=== PATIENT | female | born 1965 | race Caucasian/White ===

== ENCOUNTER → 2021-12-12 07:44 | Outpatient (BNVA) | payer MEDICARE, SELFPAY | PROVIDERS: PCP Internal Medicine; Visit Provider Internal Medicine Rheumatology | DX: M35.05 Sjogren syndrome with inflammatory arthritis (principal); M35.9 Systemic involvement of connective tissue, unspecified; M16.0 Bilateral primary osteoarthritis of hip; M75.82 Other shoulder lesions, left shoulder; M79.7 Fibromyalgia; J84.9 Interstitial pulmonary disease, unspecified; Z79.899 Other long term (current) drug therapy | CPT/HCPCS: 20610; 99212 ==

== ENCOUNTER 2022-04-11 08:49 | Outpatient (REF) | payer MEDICARE, SELFPAY ==
[2022-04-11 10:35] LABS: MANUAL DIFF FLAG NO
[2022-04-11 10:44] LABS: Basophils Percent Auto 0.8 % (0-2); Eosinophils Absolute Auto 0.1 X10*3/uL (0.0-0.4); Eosinophils Percent Auto 2.8 % (0-4); Hematocrit 36.7 % (37.0-47.0); Hemoglobin 12.2 g/dl (12.0-16.0); Imm Gran Abs Auto 0.01 X10*3/uL (0.00-0.03); Imm Gran Pct Auto 0.3 % (0.0-0.4); Lymphocytes Absolute Auto 0.9 X10*3/uL (1.2-4.9); Lymphocytes Percent Auto 23.7 % (20-40); Mean Corpuscular HGB Conc 33.2 g/dl (31.0-35.0); Mean Corpuscular Hemoglobin 29.6 pg (27.0-33.0); Mean Corpuscular Volume 89.1 fL (80.0-98.0); Mean Platelet Volume 9.8 fL (9.4-12.3); Monocytes Absolute Auto 0.3 X10*3/uL (0.1-1.2); Monocytes Percent Auto 8.1 % (2-11); Neutrophils Absolute Auto 2.6 x10*3/uL (2.0-8.3); Neutrophils Percent Auto 64.3 % (45-73); Platelet Count 272 X10*3/uL (160-400); Red Blood Count 4.12 X10*6/uL (4.20-5.50); Red Cell Distribution Width 11.9 % (11.0-16.0)
[2022-04-11 10:50] LABS: C Reactive Protein 0.38 mg/dL (< or = 0.50); Estimated Glomerular Filt Rate > 60
[2022-04-11 11:12] LABS: Creatinine Urine 269.88 mg/dL; Protein/Creatinine Ratio, Ur 0.04 (<0.2); Total Protein Urine Random 10 mg/dL (<12)
[2022-04-11 12:27] LABS: Erythrocyte Sedimentation Rate 46 MM/HR (0-20)
== END 2022-04-11 08:50 | disposition home or self-care (01) ==
LOC: HO.10HDL 08:49
PROVIDERS: Visit Provider Internal Medicine Rheumatology
DX: M79.7 Fibromyalgia (principal); M75.82 Other shoulder lesions, left shoulder; M16.0 Bilateral primary osteoarthritis of hip; J84.9 Interstitial pulmonary disease, unspecified; M35.9 Systemic involvement of connective tissue, unspecified; G43.909 Migraine, unspecified, not intractable, without status migrainosus; M35.05 Sjogren syndrome with inflammatory arthritis; Z79.899 Other long term (current) drug therapy
CPT/HCPCS: 36415; 82565; 84156; 85025; 85652; 86140; 99212

== ENCOUNTER → 2022-09-11 08:26 | Outpatient (BNVA) | payer MEDICARE, SELFPAY | PROVIDERS: PCP Internal Medicine; Visit Provider Internal Medicine Rheumatology | DX: M79.7 Fibromyalgia (principal); M47.816 Spondylosis without myelopathy or radiculopathy, lumbar region; M75.82 Other shoulder lesions, left shoulder; M16.0 Bilateral primary osteoarthritis of hip; M35.05 Sjogren syndrome with inflammatory arthritis; J84.9 Interstitial pulmonary disease, unspecified; Z79.899 Other long term (current) drug therapy | CPT/HCPCS: 99212 ==

== ENCOUNTER 2022-09-11 09:37 | Outpatient (REF) | payer MEDICARE, SELFPAY ==
[2022-09-11 10:49] LABS: Basophils Percent Auto 0.9 % (0-2); Eosinophils Absolute Auto 0.3 X10*3/uL (0.0-0.4); Eosinophils Percent Auto 5.8 % (0-4); Hematocrit 34.8 % (37.0-47.0); Hemoglobin 11.2 g/dl (12.0-16.0); Imm Gran Abs Auto 0.01 X10*3/uL (0.00-0.03); Imm Gran Pct Auto 0.2 % (0.0-0.4); Lymphocytes Absolute Auto 1.6 X10*3/uL (1.2-4.9); Lymphocytes Percent Auto 38.3 % (20-40); MANUAL DIFF FLAG SCAN; Mean Corpuscular HGB Conc 32.2 g/dl (31.0-35.0); Mean Corpuscular Hemoglobin 28.8 pg (27.0-33.0); Mean Corpuscular Volume 89.5 fL (80.0-98.0); Mean Platelet Volume 9.4 fL (9.4-12.3); Monocytes Absolute Auto 0.3 X10*3/uL (0.1-1.2); Monocytes Percent Auto 6.8 % (2-11); Neutrophils Absolute Auto 2.1 x10*3/uL (2.0-8.3); Platelet Count 332 X10*3/uL (160-400); Red Blood Count 3.89 X10*6/uL (4.20-5.50); Red Cell Distribution Width 11.8 % (11.0-16.0); SCAN SMEAR FLAG 1; White Blood Count 4.3 X10*3/uL (4.8-10.8)
[2022-09-11 11:15] LABS: SLIDE REVIEW VERIFIED
[2022-09-11 11:38] LABS: Erythrocyte Sedimentation Rate 48 MM/HR (0-20)
== END 2022-09-11 09:38 | disposition home or self-care (01) ==
LOC: HO.10HDL 09:37
PROVIDERS: Visit Provider Internal Medicine Rheumatology
DX: M16.0 Bilateral primary osteoarthritis of hip (principal); M35.9 Systemic involvement of connective tissue, unspecified; M35.05 Sjogren syndrome with inflammatory arthritis; M47.816 Spondylosis without myelopathy or radiculopathy, lumbar region; M75.82 Other shoulder lesions, left shoulder; J84.9 Interstitial pulmonary disease, unspecified
CPT/HCPCS: 36415; 85025; 85652; 86140

== ENCOUNTER 2023-01-17 10:02 | Outpatient (REF) | payer MEDICARE, SELFPAY ==
[2023-01-17 13:18] LABS: MANUAL DIFF FLAG NO
[2023-01-17 13:27] LABS: Basophils Percent Auto 0.7 % (0-2); Eosinophils Absolute Auto 0.1 X10*3/uL (0.0-0.4); Eosinophils Percent Auto 2.5 % (0-4); Hemoglobin 12.1 g/dl (12.0-16.0); Imm Gran Abs Auto 0.01 X10*3/uL (0.00-0.03); Imm Gran Pct Auto 0.2 % (0.0-0.4); Lymphocytes Percent Auto 22.4 % (20-40); Mean Corpuscular HGB Conc 32.7 g/dl (31.0-35.0); Mean Corpuscular Hemoglobin 29.4 pg (27.0-33.0); Mean Platelet Volume 10.1 fL (9.4-12.3); Monocytes Absolute Auto 0.3 X10*3/uL (0.1-1.2); Monocytes Percent Auto 7.6 % (2-11); Neutrophils Absolute Auto 2.9 x10*3/uL (2.0-8.3); Neutrophils Percent Auto 66.6 % (45-73); Platelet Count 250 X10*3/uL (160-400); Red Blood Count 4.11 X10*6/uL (4.20-5.50); Red Cell Distribution Width 11.9 % (11.0-16.0); White Blood Count 4.3 X10*3/uL (4.8-10.8)
[2023-01-17 13:42] LABS: Alanine Aminotransferase 16 U/L (0-31); Albumin Level 4.2 g/dL (3.5-5.0); Alkaline Phosphatase 69 U/L (39-117); Anion Gap 10 (12-20); Aspartate Amino Transferase 22 U/L (5-31); Bilirubin Total 0.8 mg/dL (0.0-1.0); Blood Urea Nitrogen 6 mg/dL (9-16); C Reactive Protein 0.14 mg/dL (< or = 0.50); Calcium 9.5 mg/dL (8.4-10.2); Carbon Dioxide 28 mmol/L (22-29); Chloride 107 mmol/L (96-108); Estimated Glomerular Filt Rate > 60; Glucose Random 81 mg/dL (60-115); Sodium 141 mmol/L (135-145); Total Protein 7.4 g/dL (6.5-8.0)
[2023-01-17 14:14] LABS: Erythrocyte Sedimentation Rate 34 MM/HR (0-20)
[2023-01-19 22:33] LABS: TS Negative Control Passed; TS Panel A 0; TS Panel B 0; TS Positive Control Passed; TSpotTB Negative (Negative)
[2023-01-20 08:50] LABS: HBS Num1 73.29 mIU/mL (0-7.99); HBsAGNum1 0.28 S/CO (0.00-0.99); Hepatitis A Antibody IgM 0.14 Index (0-0.79); Hepatitis B Core Antibody Nonreactive (Nonreactive); Hepatitis B Surface Antigen Negative (Negative); ~HepC Num1 0.18 S/CO (0.00-0.79); ~Hepatitis A Antibody IgM Nonreactive (Nonreactive); ~Hepatitis B Surface Antibody REACTIVE (Nonreactive); ~Hepatitis C Antibody Nonreactive (Nonreactive)
== END 2023-01-17 10:03 | disposition home or self-care (01) ==
LOC: HO.10HDL 10:02
PROVIDERS: Visit Provider Internal Medicine Rheumatology
DX: M35.05 Sjogren syndrome with inflammatory arthritis (principal); J84.9 Interstitial pulmonary disease, unspecified; M35.9 Systemic involvement of connective tissue, unspecified; Z79.899 Other long term (current) drug therapy
CPT/HCPCS: 36415; 80053; 85025; 85652; 86140; 86481; 86704; 86706; 86709; 86803; 87340

== ENCOUNTER → 2023-01-22 08:42 | Outpatient (BNVA) | payer MEDICARE, SELFPAY | PROVIDERS: PCP Internal Medicine; Visit Provider Internal Medicine Rheumatology | DX: M35.05 Sjogren syndrome with inflammatory arthritis (principal); M79.7 Fibromyalgia; M47.812 Spondylosis without myelopathy or radiculopathy, cervical region; M47.816 Spondylosis without myelopathy or radiculopathy, lumbar region; J84.9 Interstitial pulmonary disease, unspecified; Z79.899 Other long term (current) drug therapy | CPT/HCPCS: 99212 ==

== ENCOUNTER 2023-02-05 12:38 | Outpatient (REF) | payer MEDICARE, SELFPAY ==
[2023-02-07 13:03] LABS: IgA 298 mg/dL (47-310); IgG 1731 mg/dL (600-1640); IgM 89 mg/dL (50-300)
== END 2023-02-05 12:39 | disposition home or self-care (01) ==
LOC: HO.LAB 12:38
PROVIDERS: PCP Internal Medicine; Visit Provider Student in an Organized Health Care Education/Training Program
DX: Z79.899 Other long term (current) drug therapy (principal)
CPT/HCPCS: 36415; 82784

== ENCOUNTER → 2023-03-26 07:52 | Outpatient (BNVA) | payer MEDICARE, SELFPAY | PROVIDERS: PCP Internal Medicine; Visit Provider Internal Medicine Rheumatology | DX: M35.05 Sjogren syndrome with inflammatory arthritis (principal); J84.9 Interstitial pulmonary disease, unspecified; M16.0 Bilateral primary osteoarthritis of hip; M47.812 Spondylosis without myelopathy or radiculopathy, cervical region; M47.816 Spondylosis without myelopathy or radiculopathy, lumbar region; M79.7 Fibromyalgia; Z79.620 Long term (current) use of immunosuppressive biologic | CPT/HCPCS: 99212 ==

== ENCOUNTER 2023-06-26 15:15 | Outpatient (REF) | payer MEDICARE, SELFPAY ==
[2023-06-26 18:55] LABS: Alanine Aminotransferase 14 U/L (0-31); Albumin Level 4.4 g/dL (3.5-5.0); Alkaline Phosphatase 69 U/L (39-117); Anion Gap 14 (12-20); Aspartate Amino Transferase 17 U/L (5-31); Bilirubin Total 0.7 mg/dL (0.0-1.0); Blood Urea Nitrogen 11 mg/dL (9-16); C Reactive Protein 0.19 mg/dL (< or = 0.50); Calcium 10.1 mg/dL (8.4-10.2); Carbon Dioxide 26 mmol/L (22-29); Chloride 105 mmol/L (96-108); Estimated Glomerular Filt Rate > 60; Glucose Random 74 mg/dL (60-115); Potassium 4.1 mmol/L (3.3-5.1); Sodium 141 mmol/L (135-145)
== END 2023-06-26 15:16 | disposition home or self-care (01) ==
LOC: HO.LAB 15:15
PROVIDERS: PCP Internal Medicine; Visit Provider Internal Medicine Rheumatology
DX: M35.05 Sjogren syndrome with inflammatory arthritis (principal); Z79.620 Long term (current) use of immunosuppressive biologic
CPT/HCPCS: 36415; 80053; 82570; 82784; 84156; 85025; 85652; 86140

== ENCOUNTER 2023-07-02 07:53 | Outpatient (AMB) | payer MEDICARE, SELFPAY ==
--- NOTE | 2023-07-02 07:54 | MHC.OFFVIS ---
Intake Vital Signs 07/02/23 08:00 Height 5 ft 2 in Weight 181 lb 3.52 oz BMI 33.1 BP 102/62 Blood Pressure Location Lt brachial Position Sitting Pulse 71 Pulse Source Pulse Oximeter Temp 97.2 F Temp Source Skin Pulse Oximetry (%) 100 Oxygen Delivery Method Room Air Intake Visit Reasons: sjog/ILD, FM/ OA Intake Note: Patient presents today for Sjogren's, ILD, Fibromyalgia, and OA follow up. Reports she will be having hip surgery through [facility]. Medical Manager Required: No Accompanied by: Self / Same As Patient Allergies No Known Allergies Allergy (Verified 07/02/23 08:01) Medication List - Last Reconciled 07/02/23 by Tato Martinez MD acetaminophen (Tylenol) 650 mg PO Q6H PRN albuterol 90 mcg/actuation 108 mcg inhalation .EVERY 6 HOURS PRN celecoxib 200 mg PO BID cyclobenzaprine 10 mg PO BID PRN cyclosporine 0.05% (Restasis) 2 drps ophthalmic (eye) TID fluticasone furoate 50 mcg/actuation inhalation DAILY PRN fluticasone furoate 100 mcg/actuation (Arnuity Ellipta) 1 inh inhalation DAILY gabapentin 100 mg PO TID hydroxychloroquine (Plaquenil) 200 mg PO BID meclizine 12.5 mg PO TID PRN nortriptyline 10 - 30 mg (1 - 3 x 10 mg) PO BEDTIME omeprazole 40 mg PO DAILY triamcinolone acetonide (Nasacort) 1 spray intranasal DAILY triamcinolone acetonide 0.1% 1 appl topical BID PRN HPI HPI Comments History of Present Illness Details The patient returns for evaluation of her Sjogren's disease and ILD. Breathing remains stable with no apparent exertional shortness of breath or cough. She does feel like she has trouble taking a deep breath when she wants to yawn. Her PCP has referred her to Neurology for consideration of the sleep study because of that symptom. She received 2 doses of 1 g of rituximab; one at the end of January and one the 1st week of February. She continues to have rather severe pain in the left hip with most any motion. Because of that she has seen orthopedics and hip replacement is planned on August 20. I have a note from the orthopedist about the timing of that surgery with respect to her rituximab infusion for her Sjogren's lung disease. She remains on hydroxychloroquine 200 b.i.d., Restasis eyedrops, Celebrex 200 b.i.d., albuterol inhaler, gabapentin 100 t.i.d. p.r.n., nortriptyline at bedtime, and omeprazole 40 mg daily. She also gets pain in the lower back, more on the right. She did see physiatry about that but when she visited him the back pain seems better so no treatment was added. She did have a left shoulder injection at that point which was helpful. Her other muscle aches are stable for now with the current regimen. She did have an eye exam monitoring the hydroxychloroquine earlier this summer. [facility] Medical History (Updated 03/25/23 @ 20:29 by Tato Martinez MD) delivery delivered Long-term use of hydroxychloroquine Osteoarthritis cervical spine Fibromyalgia Osteoarthritis of lumbar spine Tendinitis of left rotator cuff Surgical History H/O elbow surgery H/O toe surgery Family History Mother HTN (hypertension) Osteoarthritis Parkinson disease Diabetes Hypercholesteremia Age related osteoporosis Diverticulitis Father No problems noted. Social History Household Members: Spouse Housing: House Are you a primary weekend caregiver to a significant other at home: No Do you presently have visiting nurse or other home services: No 75 years or older and lives alone: No Alcohol intake: never Patient Tobacco Use Status: Never used Tobacco e-Cigarette/Vaping Use: Never Used service: No Current occupational status: disabled Review of Systems Const Details: Negative for appetite change, weight change, fever, chills, malaise and fatigue Eyes Details: Ocular dryness about the same. Negative for vision change,headaches and dizziness ENT Details: Oral dryness continues. Negative for hearing change, tinnitus, oral ulcer, nose bleeds . Card Details: Negative chest pain, edema and syncope Resp Details: Negative for SOB, cough and wheezing GI Details: Negative indigestion/heartburn, nausea, abdominal pain, bowel changes, diarrhea, constipation and bloody stool. Endo Details: Negative for polyuria and polydypsia Marlon/Lymph Details: Negative for excessive bruising or bleeding. Physical Exam Vital Signs: Last Vital Signs Temp 97.2 F 07/02/23 08:00 Pulse 71 07/02/23 08:00 BP 102/62 07/02/23 08:00 Pulse Ox 100 07/02/23 08:00 Oxygen Delivery Method Room Air 07/02/23 08:00 BMI result Body Mass Index 33.1 APPEARANCE: Patient in no acute distress EYES no redness, pupils equal and reactive to light, eyelids normal NOSE/SINUS:? Airflow through both nares, no nasal discharge, no bleeding THROAT:? Oral mucosa moist, no ulcerations NECK:? No thyromegaly or masses, no adenopathy, trachea midline. HEART:? Regulrar rhythm, S1-S2 heard, no murmurs, rubs or gallops. LUNG:? Clear to percussion and auscultation ABD:? Normal bowel sounds, no organomegaly, masses or tenderness. EXTREMITIES:? No edema, no calf tenderness, normal peripheral pulses. SKIN:? No nflammatory or neoplastic lesions.? No objective signs of Raynaud's phenomenon JOINT EXAM:?? Cervical Spine:.? Mild pain with range of motion.? Slight cervical muscle tenderness. Thoracic Spine:.? No scoliosis.? No tenderness on palpation. Lumbar Spine:.? Alignment normal.? Mild pain with extremes of normal range of motion.no tenderness. Chest Wall:.? No tenderness, swelling, increased warmth or erythema. Hands:? Right:? Normal pain-free range of motion.? There is no tenderness at the 1st 2 MCP joints, the 2nd May have some slight soft tissue swelling.? There is some minimal? tenderness across the 2nd through 4th PIP? but no significant swelling.? There is no thenar atrophy or sensory loss.? Left:? Normal pain-free range of motion with some mild tenderness across the PIP joints but no? swelling, increased warmth or erythema. Able to make a full fist and has a good benzene washer strength. Wrists:.? Mild pain at the extremes of motion with some mild tenderness but no, swelling, increased warmth or erythema. Elbows:.? Left: Mild pain at full extension.? There is tenderness over the lateral epicondyle but not the joint space.? No swelling or redness.? Right:? Normal pain-free range of motion without tenderness, swelling, increased warmth or erythema. Shoulders:.?? Right: Mild discomfort with extremes of normal abduction or rotation.? There is some slight anterior tenderness but no adenopathy, weakness, swelling, increased warmth or erythema.? Left:? Mild pain with abduction at 120 degrees or with more than 20 degrees of internal external rotation.? There is mild anterior and subacromialtenderness.? There is no abductor weakness or swelling.? No supraclavicular or axillary adenopathy. Hips:? Right:? Slight pain with extremes of normal range of motion.? The pain is in the lateral hip and lumbar region.? No adenopathy.? Left: Moderate pain with flexion at 75 degrees or abduction to 10 degrees.? There is also similar pain with any attempted internal rotation or external rotation more than 10 degrees.? The pain is felt in the posterior buttock, groin, and left knee.? No groin tenderness or mass. Hip bursa:.? Slight left trochanteric tenderness. Knees:.? Left: Mild pain with extremes of flexion or extension with some minimal medial compartment tenderness but no redness or effusion.? There is mild patellofemoral crepitus.? Right:?? Normal pain-free range of motion with mild patellofemoral crepitus.? There is minimal medial compartment tenderness without effusion, soft tissue swelling, increased warmth or erythema.? Ankles:.? Right:? There is mild pain with extremes of range of motion.? There is mild medial and lateral tenderness but no swelling.? She has significant?valgus at the ankle due to the significant pes planus deformity.? Left:? pain-free range of motion with mild tenderness but no swelling, increased warmth or erythema. Feet:? Right:? Pes planus deformity, mild medial instep and MTP tenderness without significant joint swelling.? Left:? Normal pain-free range of motion with mild tenderness across the the insteps and MTP joints but no swelling, increased warmth or erythema. Tender points:? Mild tenderness to digital palpation at the occiput, trapezius, second rib, lateral epicondyle, knees, greater trochanter and gluteal area bilaterally. Results Reviewed Results Reviewed: Laboratory Tests 10/02/1106/26/23 06/26/23 15:25 15:28 15:28 WBC 6.5 Hgb 12.5 ESR 29 H Creatinine 0.82 C-Reactive Protein 0.19 U Random Total Protein < 7 IgG Total 1588 IgA Total 298 IgM 69 Assessment & Plan Assessment & Plan (1) Sjogren syndrome with inflammatory arthritis: Comment: Dry eyes and mouth, +RF, +MARCELLO, +Sjogren's antibodies Recurrent parotid swelling. cystic lung changes consistent with LIP On hydroxychloroquine - Eye exam 02/04. 03/08, 08/08, 09/08, 05/10, 01/2021, 02/2022 Code(s): M35.05 - Sjogren syndrome with inflammatory arthritis (2) On rituximab therapy: Code(s): Z79.620 - intermediate card tender (current) use of immunosuppressive biologic (3) Long-term use of hydroxychloroquine: Comment: Eye exam 02/04. 03/08, 08/08, 09/08, 05/10, 01/2021, 02/2022 Code(s): Z79.899 - Other terminal superintendent (current) drug therapy (4) Osteoarthritis, hip, bilateral: Comment: hip dysplasia, worse on left Code(s): M16.0 - Bilateral primary osteoarthritis of hip (5) Interstitial lung disease due to collagen vascular disease: Comment: LIP or CLARKE picture on CT - probably related to Sjogren's. 11/3022 CT at the [facility] showing increasing size of the cysts. 02/13/23, 02/27/2023 Ruxience(rituximab) one gram given on each date Code(s): J84.9 - Interstitial pulmonary disease, unspecified; M35.9 - Systemic involvement of connective tissue, unspecified Plan Sjogren's disease with interstitial lung disease. She seems to be relatively asymptomatic with respect to the lung problem. She did tolerate the rituximab without any difficulties. We would aim to repeat her CT scan in the next month or 2 to see if there is any change from the previous lung CT scan done this spring before the rituximab doses. We may consider another dose of rituximab but given her upcoming surgery I would wait until least 2 or 3 weeks after the surgery. If the wound is healed and she had had no perioperative infection I think she could safely receive the rituximab in mid August or so. We will aim to have her return at that point. I will try to arrange a chest CT scan either locally or at the [facility]. I would rather prefer the [facility] since they had done the most recent scan. We will be working on logistics of trying to schedule that. She apparently does have a Pulmonary appointment here locally to clear her for surgery. I will send a note to her Orthopedic surgeon. She will continue with the celecoxib and gabapentin as above. The celecoxib can be held the week before surgery. We will schedule her back to see me in mid August and at that point make a decision on the next dose and timing of the rituximab. Coding Level of Care Code Est Pt Level 4 (86148) Diagnoses Sjogren syndrome with inflammatory arthritis M35.05 On rituximab therapy Z79.620 Long-term use of hydroxychloroquine Z79.899 Osteoarthritis, hip, bilateral M16.0 Interstitial lung disease due to collagen vascular disease J84.9; M35.9
[2023-07-02 08:00] VITALS: BP 102/62; PULSE 71; TEMP 36.2; O2SAT 100; BMI 33.1
== END 2023-07-02 08:31 | disposition home or self-care (01) ==
PROVIDERS: PCP Internal Medicine; Visit Provider Internal Medicine Rheumatology
DX: M35.05 Sjogren syndrome with inflammatory arthritis (principal); Z79.620 Long term (current) use of immunosuppressive biologic; Z79.899 Other long term (current) drug therapy; M16.0 Bilateral primary osteoarthritis of hip; J84.9 Interstitial pulmonary disease, unspecified; M35.9 Systemic involvement of connective tissue, unspecified
CPT/HCPCS: 99214

== ENCOUNTER → 2023-07-02 07:53 | Outpatient (BNVA) | payer MEDICARE, SELFPAY | PROVIDERS: PCP Internal Medicine; Visit Provider Internal Medicine Rheumatology | DX: M35.05 Sjogren syndrome with inflammatory arthritis (principal); M79.7 Fibromyalgia; M16.0 Bilateral primary osteoarthritis of hip; J84.9 Interstitial pulmonary disease, unspecified; Z79.899 Other long term (current) drug therapy; Z79.620 Long term (current) use of immunosuppressive biologic | CPT/HCPCS: 99212 ==

== ENCOUNTER 2023-07-21 07:51 | Outpatient (AMB) | payer MEDICARE, SELFPAY ==
--- NOTE | 2023-07-18 08:46 | MHC.OFFVIS ---
Intake Vital Signs 07/21/23 08:13 Height 5 ft 2 in Weight 185 lb 6 oz BMI 33.9 BP 136/80 Blood Pressure Location Lt brachial Position Sitting Respiration 17 Pulse 70 Pulse Source Pulse Oximeter Pulse Oximetry (%) 99 Oxygen Delivery Method Room Air Intake Visit Reasons: ENP-Difficulty Yawning Intake Note: Pt presents to the office for new pt evaluation for difficulty yawning. She reports she has difficulty getting that last air at night to yawn . Allergies No Known Allergies Allergy (Verified 07/21/23 08:13) HPI HPI Comments History of Present Illness Details 57y/o female with Sjogrens disease, multiple idiopathic lung cysts , lymphoid interstitial pneumonitis comes for evaluation of difficulty yawning she sees a Mainstreaming Facilitator in [place] and Dr. Barbosa at [place]. The difficulty yawning has been there for a few years now but has noticed worsening in the past 6 mths. she denies increase or decrease in yawning but describes as unable to fully complete her yawning and expel air. she denies pain . she has shortness of breath. she has difficulty sleeping with frequent arousals and snoring.she denies any depression or anxiety COUNTS INCLUDE 234 BEDS AT THE [facility] Medical History (Updated 07/21/23 @ 09:01 by Tracey Garcia MD) Cervical spondylosis Lumbar spondylosis Esophageal dysmotility Sjogren's syndrome with gastrointestinal involvement Yawning Hypersomnia Snoring delivery delivered Long-term use of hydroxychloroquine Osteoarthritis cervical spine Fibromyalgia Osteoarthritis of lumbar spine Tendinitis of left rotator cuff Surgical History H/O elbow surgery H/O toe surgery Family History Mother HTN (hypertension) Osteoarthritis Parkinson disease Diabetes Hypercholesteremia Age related osteoporosis Diverticulitis Father No problems noted. Social History Household Members: Spouse Housing: House Are you a primary home health care social worker to a significant other at home: No Do you presently have visiting nurse or other home services: No 75 years or older and lives alone: No Alcohol intake: never Patient Tobacco Use Status: Never used Tobacco e-Cigarette/Vaping Use: Never Used service: No Current occupational status: disabled Review of Systems Const Details: Negative for appetite change, weight change, fever, chills, malaise and fatigue Eyes Details: Ocular dryness about the same. Negative for vision change,headaches and dizziness ENT Details: Oral dryness continues. Negative for hearing change, tinnitus, oral ulcer, nose bleeds . Card Details: Negative chest pain, edema and syncope Resp Details: Negative for SOB, cough and wheezing GI Details: Negative indigestion/heartburn, nausea, abdominal pain, bowel changes, diarrhea, constipation and bloody stool. Endo Details: Negative for polyuria and polydypsia Marlon/Lymph Details: Negative for excessive bruising or bleeding. Physical Exam Vital Signs: Last Vital Signs Pulse 70 07/21/23 08:13 Resp 17 07/21/23 08:13 BP 136/80 07/21/23 08:13 Pulse Ox 99 07/21/23 08:13 Oxygen Delivery Method Room Air 07/21/23 08:13 BMI result Body Mass Index 33.9 Const General: cooperative, healthy appearing and comfortable Nutritional Appearance: overweight Orientation/consciousness: patient oriented x3 Neuro Other: Mallampatti grade 4 Limited motor exam in left UE and LE due to pain Mild ptosis General: patient oriented x3, tone normal and moves all extremities Cranial nerves: Yes Bilaterally intact EOM present, Yes Nystagmus not present and Yes Normal facial strength present Cognition (Neuro): normal cognition Gait exam (Neuro): Antalgic gait present Motor exam (neuro): 5/5 motor strength present throughout and Normal motor muscle tone present throughout Deep tendon reflexes (DTR's): Right triceps reflex intensity grade: 2+, Left triceps reflex intensity grade: 2+, Rt Biceps (C5, C6): 2+, Left biceps reflex intensity grade: 2+, Right brachioradialis reflex intensity grade: 2+, Left brachioradialis reflex intensity grade: 2+, Right patellar reflex intensity grade: 2+ and Left patellar reflex intensity grade: 2+ Coordination: [id number] test normal Assessment & Plan Assessment & Plan (1) Yawning: Comment: ? related to Obstructed upper airway disease, ? neuromuscular weakness ? pulmonary issues. Code(s): R06.89 - Other abnormalities of breathing (2) Hypersomnia: Code(s): G47.10 - Hypersomnia, unspecified (3) Snoring: Code(s): R06.83 - Snoring Plan I will evaluate her with Home sleep test to r/o sleep apnea F/u Pulmonary will cosnider EMG Orders: Orders RT home sleep study Today G47.10 - Hypersomnia, unspecified, R06.83 - Snoring Coding Level of Care Code New Pt Level 4 (59598) Diagnoses Yawning R06.89 Hypersomnia G47.10 Snoring R06.83
[2023-07-21 08:13] VITALS: BP 136/80; PULSE 70; RESP 17; O2SAT 99; BMI 33.9
== END 2023-07-21 08:50 | disposition home or self-care (01) ==
PROVIDERS: PCP Internal Medicine; Visit Provider Psychiatry & Neurology Neurology
DX: R06.89 Other abnormalities of breathing (principal); G47.10 Hypersomnia, unspecified; R06.83 Snoring
CPT/HCPCS: 99204

== ENCOUNTER → 2023-07-21 07:51 | Outpatient (BNVA) | payer MEDICARE, SELFPAY | PROVIDERS: PCP Internal Medicine; Visit Provider Psychiatry & Neurology Neurology | DX: R06.89 Other abnormalities of breathing (principal); G47.10 Hypersomnia, unspecified; R06.83 Snoring | CPT/HCPCS: 99202 ==

== ENCOUNTER → 2023-08-28 10:49 | Outpatient (REF) | payer MEDICARE, SELFPAY | LOC: HO.SL 10:49 | PROVIDERS: PCP Internal Medicine; Visit Provider Psychiatry & Neurology Neurology | DX: G47.10 Hypersomnia, unspecified (principal); R06.83 Snoring | CPT/HCPCS: 95806 ==

== ENCOUNTER → 2023-08-28 11:16 | Outpatient (BNV) | payer MEDICARE, SELFPAY | PROVIDERS: PCP Internal Medicine; Visit Provider Psychiatry & Neurology Neurology | DX: R06.83 Snoring (principal); G47.10 Hypersomnia, unspecified | CPT/HCPCS: 95806 ==

== ENCOUNTER 2023-09-01 08:06 | Outpatient (AMB) | payer MEDICARE, SELFPAY ==
[2023-09-01 08:22] VITALS: BP 140/68; PULSE 70; TEMP 35.9; O2SAT 100; BMI 33.3
--- NOTE | 2023-09-01 08:22 | A.OFFVIS_ITS ---
Intake Vital Signs 09/01/23 08:22 Height 5 ft 2 in Weight 182 lb 1.629 oz BMI 33.3 BP 140/68 H Blood Pressure Location Lt brachial Position Sitting Pulse 70 Pulse Source Pulse Oximeter Temp 96.7 F L Temp Source Skin Pulse Oximetry (%) 100 Oxygen Delivery Method Room Air Intake Visit Reasons: sjogren and ILD Intake Note: Patient presents today to follow up on Sjogren's and ILD, and to discuss next infusion. Last seen by Schu on 07/02/23. 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 Accompanied by: Spouse Allergies No Known Allergies Allergy (Verified 09/01/23 08:25) Medication List - Last Reconciled 09/01/23 by Tato Martinez MD acetaminophen (Tylenol) 650 mg PO Q6H PRN albuterol 90 mcg/actuation 108 mcg inhalation .EVERY 6 HOURS PRN celecoxib 200 mg PO BID cyclobenzaprine 10 mg PO BID PRN cyclosporine 0.05% (Restasis) 2 drps ophthalmic (eye) TID fluticasone furoate 50 mcg/actuation inhalation DAILY PRN fluticasone furoate 100 mcg/actuation (Arnuity Ellipta) 1 inh inhalation DAILY gabapentin 100 mg PO TID hydroxychloroquine (Plaquenil) 200 mg PO BID meclizine 12.5 mg PO TID PRN nortriptyline 10 - 30 mg (1 - 3 x 10 mg) PO BEDTIME omeprazole 40 mg PO DAILY prednisone mg PO rituximab (Rituxan) IV triamcinolone acetonide (Nasacort) 1 spray intranasal DAILY triamcinolone acetonide 0.1% 1 appl topical BID PRN HPI HPI Comments History of Present Illness Details The patient returns with her for evaluation of her interstitial lung disease and Sjogren's syndrome. On August 20 she underwent a left total hip replacement at [facility]. That seems to have gone okay. She has been having some home PT and now she has appointments for outpatient PT. There is still some discomfort with range of motion in the hip. There has been no drainage from the wound site. She does have an orthopedic follow-up later this week. She is having a dry cough. She had a COVID infection in early July. The symptoms subsided except for a dry cough. The dry cough has worsened after her surgery. She said the PT is been doing home oximetry and they have not seen any abnormalities. There has been no sputum production, fevers, chills, dyspnea or chest pain. The peripheral joints and muscles are achy as usual from her fibromyalgia but none are swollen. She did talk to Pulmonary and she received a course of prednisone for the cough and that did improve but the dry cough is still present. She is down to 20 mg daily on the prednisone and this is the last day. She does have an albuterol inhaler and Arnuity inhaler. Another inhaler was to replace the Arnuity but the co-payment was high and she has not been able to afford it yet. She remains on hydroxychloroquine 200 mg b.i.d. She would be due for another rituximab infusion this month for her ILD. She had a chest CT scan in June showing still the presence of thin wall cysts but the overall impression was that it was unchanged from the previous one from last year. [facility] Medical History (Updated 09/01/23 @ 08:57 by Tato Martinez MD) Cervical spondylosis Lumbar spondylosis Esophageal dysmotility Sjogren's syndrome with gastrointestinal involvement Yawning Hypersomnia Snoring delivery delivered Long-term use of hydroxychloroquine Osteoarthritis cervical spine Fibromyalgia Osteoarthritis of lumbar spine Tendinitis of left rotator cuff Surgical History H/O elbow surgery H/O toe surgery Family History Mother HTN (hypertension) Osteoarthritis Parkinson disease Diabetes Hypercholesteremia Age related osteoporosis Diverticulitis Father No problems noted. Social History Household Members: Spouse Housing: House Are you a primary personal care worker to a significant other at home: No Do you presently have visiting nurse or other home services: No Alcohol intake: never Patient Tobacco Use Status: Never used Tobacco e-Cigarette/Vaping Use: Never Used service: No Current occupational status: disabled Review of Systems Const Details: Negative for appetite change, weight change, fever, chills, malaise and fatigue Eyes Details: Some ocular dryness continues. Negative for vision change,headaches and dizziness ENT Details: Oral dryness continues. Denies nasal congestion or rhinorrhea. Negative for hearing change, tinnitus, oral ulcer, nose bleeds Card Details: Nonproductive cough as noted above. Negative chest pain, edema and syncope Resp Details: Negative for SOB, cough and wheezing GI Details: Negative indigestion/heartburn, nausea, abdominal pain, bowel changes, diarrhea, constipation and bloody stool. Skin/Breast Details: Negative for itching, rash, hives, Raynaud's symptoms, sun sensitivity, and skin cancer Marlon/Lymph Details: Negative for excessive bruising or bleeding. Physical Exam Vital Signs: Last Vital Signs Temp 96.7 F L 09/01/23 08:22 Pulse 70 09/01/23 08:22 BP 140/68 H 09/01/23 08:22 Pulse Ox 100 09/01/23 08:22 Oxygen Delivery Method Room Air 09/01/23 08:22 BMI result Body Mass Index 33.3 APPEARANCE: Patient in no acute distress EYES no redness, pupils equal and reactive to light, eyelids normal EARS: External ear normal, canal clear and tympanic membrane normal. NOSE/SINUS: Airflow through both nares, no nasal discharge, no bleeding THROAT: Oral mucosa moist, no ulcerations NECK: No thyromegaly or masses, no adenopathy, trachea midline. HEART: Regulrar rhythm, S1-S2 heard, no murmurs, rubs or gallops. LUNG: Clear to percussion and auscultation ABD: Normal bowel sounds, no organomegaly, masses or tenderness. EXTREMITIES: No edema, no calf tenderness, normal peripheral pulses. JOINT EXAM: Cervical Spine:.? Mild pain with range of motion.? Slight cervical muscle tenderness. Thoracic Spine:.? No scoliosis.? No tenderness on palpation. Lumbar Spine:.? Alignment normal.? Mild pain with extremes of normal range of motion.no tenderness. Chest Wall:.? No tenderness, swelling, increased warmth or erythema. Hands:? Right:? Normal pain-free range of motion.? There is no tenderness at the 1st 2 MCP joints, the 2nd May have some slight soft tissue swelling.? There is some minimal? tenderness across the 2nd through 4th PIP? but no significant swelling.? There is no thenar atrophy or sensory loss.? Left:? Normal pain-free range of motion with some mild tenderness across the PIP joints but no? swelling, increased warmth or erythema. Able to make a full fist and has a good composition floor setter strength. Wrists:.? Mild pain at the extremes of motion with some mild tenderness but no, swelling, increased warmth or erythema. Elbows:.? Left: Mild pain at full extension.? There is tenderness over the lateral epicondyle but not the joint space.? No swelling or redness.? Right:? Normal pain-free range of motion without tenderness, swelling, increased warmth or erythema. Shoulders:.?? Right: Mild discomfort with extremes of normal abduction or rotation.? There is some slight anterior tenderness but no adenopathy, weakness, swelling, increased warmth or erythema.? Left:? Mild pain with abduction at 120 degrees or with more than 20 degrees of internal external rotation.? There is mild anterior and subacromialtenderness.? There is no abductor weakness or swelling.? No supraclavicular or axillary adenopathy. Hips:? Right:? Slight pain with extremes of normal range of motion.? The pain is in the lateral hip and lumbar region.? No adenopathy.? Left: Motion limited due to pain. No tenderness. Hip bursa:.? Slight left trochanteric tenderness. Knees:.? Left: Mild pain with extremes of flexion or extension with some minimal medial compartment tenderness but no redness or effusion.? There is mild patellofemoral crepitus.? Right:?? Normal pain-free range of motion with mild patellofemoral crepitus.? There is minimal medial compartment tenderness without effusion, soft tissue swelling, increased warmth or erythema.? Ankles:.? Right:? There is mild pain with extremes of range of motion.? There is mild medial and lateral tenderness but no swelling.? She has significant?valgus at the ankle due to the significant pes planus deformity.? Left:? pain-free range of motion with mild tenderness but no swelling, increased warmth or erythema. Feet:? Right:? Pes planus deformity, mild medial instep and MTP tenderness without significant joint swelling.? Left:? Normal pain-free range of motion with mild tenderness across the the insteps and MTP joints but no swelling, increased warmth or erythema. Tender points:? Mild tenderness to digital palpation at the occiput, trapezius, second rib, lateral epico ?? ? Results Reviewed Results Reviewed: Laboratory Tests 06/26/23 15:28 WBC 6.5 Hgb 12.5 ESR 29 H Creatinine 0.82 C-Reactive Protein 0.19 IgG Total 1588 IgA Total 298 IgM 69 lab work from [facility], 08/21/2023: Hemoglobin 10.1, hematocrit 30.8, white count 12.2, creatinine 0.8 Assessment & Plan Assessment & Plan (1) Cough: Code(s): R05.9 - Cough, unspecified (2) Sjogren syndrome with inflammatory arthritis: Comment: Dry eyes and mouth, +RF, +MARCELLO, +Sjogren's antibodies Recurrent parotid swelling. cystic lung changes consistent with LIP On hydroxychloroquine - Eye exam 02/04. 03/08, 08/08, 09/08, 05/10, 01/2021, 02/2022,02/2023 Code(s): M35.05 - Sjogren syndrome with inflammatory arthritis (3) Osteoarthritis, hip, bilateral: Comment: hip dysplasia, worse on left left THR 07/2023 Code(s): M16.0 - Bilateral primary osteoarthritis of hip (4) Interstitial lung disease due to collagen vascular disease: Comment: LIP or CLARKE picture on CT - probably related to Sjogren's. 11/3022 CT at the [facility] showing increasing size of the cysts. 02/13/23, 02/27/2023 Ruxience(rituximab) one gram given on each date Code(s): J84.9 - Interstitial pulmonary disease, unspecified; M35.9 - Systemic involvement of connective tissue, unspecified Plan Sjogren's disease with interstitial lung disease mostly demonstrated by multiple thin wall cysts. Repeat CT scanning in June showed these look to be stable after a dose of rituximab in January and February. Now she has a dry cough that followed a COVID infection about 1 month ago. Other than a dry cough she was not symptomatic with the COVID. She eventually tested negative with home testing. The current coughing could be exacerbation of asthma that followed the COVID. It has improved somewhat with some prednisone. I am going to repeat a chest x-ray to see if there are any findings of an infiltrate. She will need to contact Pulmonary to find out if further treatment for asthma would be needed although today I do not hear any wheezes. It is possible that what she needs now is the rituximab as the ILD may becoming more active. We will follow up with her after the chest x-ray. Inflammatory markers and CBC are also ordered. She had some degree of anemia after her hip surgery. We will schedule follow-up in Rheumatology in 5 or 6 weeks. Orders: Orders XR chest 2V Today J84.9 - Interstitial pulmonary disease, unspecified, M35.9 - Systemic involvement of connective tissue, unspecified, R05.9 - Cough, unspec ified C Reactive Protein Today M35.05 - Sjogren syndrome with inflammatory arthritis Erythrocyte Sedimentation Rate Today M35.05 - Sjogren syndrome with inflammatory arthritis Complete Blood Count Auto Diff Today M35.05 - Sjogren syndrome with inflammatory arthritis, Z79.899 - Other senior care (current) drug therapy Coding Level of Care Code Est Pt Level 4 (18477) Diagnoses Cough R05.9 Sjogren syndrome with inflammatory arthritis M35.05 Osteoarthritis, hip, bilateral M16.0 Interstitial lung disease due to collagen vascular disease J84.9; M35.9
== END 2023-09-01 08:57 | disposition home or self-care (01) ==
PROVIDERS: PCP Internal Medicine; Visit Provider Internal Medicine Rheumatology
DX: M35.05 Sjogren syndrome with inflammatory arthritis (principal); R05.9 Cough, unspecified; M16.0 Bilateral primary osteoarthritis of hip; J84.9 Interstitial pulmonary disease, unspecified; M35.9 Systemic involvement of connective tissue, unspecified
CPT/HCPCS: 99214

== ENCOUNTER 2023-09-01 08:06 | Outpatient (REF) | payer MEDICARE, SELFPAY ==
--- NOTE | ~2023-09-01 | XR_ITS ---
EXAMINATION: XR CHEST CLINICAL INFORMATION: Reason for Exam R05.9 - Cough, unspecified COMPARISON: None TECHNIQUE: 2 views of the chest FINDINGS: Lines and tubes: None. Clear lungs. No pleural effusion. No pneumothorax. Normal cardiomediastinal silhouette. XR/XR chest 2V IMPRESSION: * Clear lungs.
== END 2023-09-01 08:07 | disposition home or self-care (01) ==
LOC: HO.XRAY 08:06
PROVIDERS: PCP Internal Medicine; Visit Provider Internal Medicine Rheumatology
DX: R05.9 Cough, unspecified (principal); J84.9 Interstitial pulmonary disease, unspecified; M35.05 Sjogren syndrome with inflammatory arthritis; M16.0 Bilateral primary osteoarthritis of hip; M35.9 Systemic involvement of connective tissue, unspecified
CPT/HCPCS: 71046; 99212

== ENCOUNTER 2023-09-01 09:04 | Outpatient (REF) | payer MEDICARE, SELFPAY ==
[2023-09-01 10:29] LABS: MANUAL DIFF FLAG NO
[2023-09-01 10:36] LABS: Basophils Percent Auto 0.5 % (0-2); Eosinophils Absolute Auto 0.1 X10*3/uL (0.0-0.4); Eosinophils Percent Auto 1.1 % (0-4); Hematocrit 30.5 % (37.0-47.0); Hemoglobin 9.4 g/dl (12.0-16.0); Imm Gran Abs Auto 0.07 X10*3/uL (0.00-0.03); Imm Gran Pct Auto 0.9 % (0.0-0.4); Lymphocytes Absolute Auto 1.4 X10*3/uL (1.2-4.9); Lymphocytes Percent Auto 17.3 % (20-40); Mean Corpuscular HGB Conc 30.8 g/dl (31.0-35.0); Mean Corpuscular Hemoglobin 28.7 pg (27.0-33.0); Mean Platelet Volume 9.2 fL (9.4-12.3); Monocytes Absolute Auto 0.5 X10*3/uL (0.1-1.2); Monocytes Percent Auto 6.1 % (2-11); Neutrophils Absolute Auto 6.1 x10*3/uL (2.0-8.3); Neutrophils Percent Auto 74.1 % (45-73); Platelet Count 437 X10*3/uL (160-400); Red Blood Count 3.28 X10*6/uL (4.20-5.50); Red Cell Distribution Width 12.3 % (11.0-16.0); White Blood Count 8.2 X10*3/uL (4.8-10.8)
[2023-09-01 11:08] LABS: C Reactive Protein 1.47 mg/dL (< or = 0.50)
[2023-09-01 11:23] LABS: Erythrocyte Sedimentation Rate 95 MM/HR (0-20)
== END 2023-09-01 09:05 | disposition home or self-care (01) ==
LOC: HO.10HDL 09:04
PROVIDERS: Visit Provider Internal Medicine Rheumatology
DX: M35.05 Sjogren syndrome with inflammatory arthritis (principal); Z79.899 Other long term (current) drug therapy
CPT/HCPCS: 36415; 85025; 85652; 86140

== ENCOUNTER 2023-09-02 10:41 | Outpatient (REF) | payer MEDICARE, SELFPAY ==
[2023-09-02 13:28] LABS: MANUAL DIFF FLAG NO
[2023-09-02 14:01] LABS: Basophils Absolute Auto 0.1 X10*3/uL (0.0-0.2); Basophils Percent Auto 0.4 % (0-2); Eosinophils Absolute Auto 0.1 X10*3/uL (0.0-0.4); Eosinophils Percent Auto 1.1 % (0-4); Hematocrit 30.9 % (37.0-47.0); Hemoglobin 9.8 g/dl (12.0-16.0); Imm Gran Abs Auto 0.09 X10*3/uL (0.00-0.03); Imm Gran Pct Auto 0.8 % (0.0-0.4); Lymphocytes Absolute Auto 0.9 X10*3/uL (1.2-4.9); Lymphocytes Percent Auto 7.6 % (20-40); Mean Corpuscular HGB Conc 31.7 g/dl (31.0-35.0); Mean Corpuscular Hemoglobin 29.3 pg (27.0-33.0); Mean Corpuscular Volume 92.2 fL (80.0-98.0); Mean Platelet Volume 9.2 fL (9.4-12.3); Monocytes Absolute Auto 0.5 X10*3/uL (0.1-1.2); Monocytes Percent Auto 4.1 % (2-11); Neutrophils Absolute Auto 9.8 x10*3/uL (2.0-8.3); Platelet Count 447 X10*3/uL (160-400); Red Blood Count 3.35 X10*6/uL (4.20-5.50); Red Cell Distribution Width 12.5 % (11.0-16.0); White Blood Count 11.4 X10*3/uL (4.8-10.8)
[2023-09-02 15:05] LABS: Iron 54 mcg/dL (30-160); Percent Iron Saturation 22 % (15-50); Total Iron Binding Capacity 242 mcg/dL (228-428); Unsaturated Iron Binding 188 ug/dL
[2023-09-03 05:05] LABS: Haptoglobin 256 MG/DL ((30-200))
== END 2023-09-02 10:42 | disposition home or self-care (01) ==
LOC: HO.10HDL 10:41
PROVIDERS: Visit Provider Internal Medicine Rheumatology
DX: D64.9 Anemia, unspecified (principal)
CPT/HCPCS: 36415; 83010; 83540; 85025

== ENCOUNTER 2023-10-06 07:36 | Outpatient (AMB) | payer MEDICARE, SELFPAY ==
[2023-10-06 07:39] VITALS: BP 132/74; PULSE 70; TEMP 36.5; O2SAT 99; BMI 33.0
--- NOTE | 2023-10-06 07:39 | A.OFFVIS_ITS ---
Intake Vital Signs 10/06/23 07:39 Height 5 ft 2 in Weight 180 lb 5.41 oz BMI 33.0 BP 132/74 Blood Pressure Location Rt brachial Position Sitting Pulse 70 Pulse Source Pulse Oximeter Temp 97.7 F Temp Source Skin Pulse Oximetry (%) 99 Oxygen Delivery Method Room Air Intake Visit Reasons: sjogren with ILD Intake Note: Pt last seen by Dr Martinez on 09/01/23 presents today for follow up and test results. Completed rituxan infusion last week reports she experienced tingling which she didn't the first time she received rituxan. 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 Accompanied by: Spouse Allergies No Known Allergies Allergy (Verified 10/06/23 07:43) Medication List - Last Reconciled 10/06/23 by Justus Cuellar MD acetaminophen (Tylenol) 650 mg PO Q6H PRN albuterol 90 mcg/actuation 108 mcg inhalation .EVERY 6 HOURS PRN celecoxib 200 mg PO BID cyclobenzaprine 10 mg PO BID PRN cyclosporine 0.05% (Restasis) 2 drps ophthalmic (eye) TID fluticasone furoate 50 mcg/actuation inhalation DAILY PRN fluticasone furoate 100 mcg/actuation (Arnuity Ellipta) 1 inh inhalation DAILY gabapentin 100 mg PO TID hydroxychloroquine (Plaquenil) 200 mg PO BID meclizine 12.5 mg PO TID PRN nortriptyline 10 - 30 mg (1 - 3 x 10 mg) PO BEDTIME omeprazole 40 mg PO DAILY prednisone mg PO rituximab (Rituxan) IV triamcinolone acetonide (Nasacort) 1 spray intranasal DAILY triamcinolone acetonide 0.1% 1 appl topical BID PRN HPI HPI Comments History of Present Illness Details 57-year-old female with Sjogren's compli cated by ILD who returns for follow-up. She completed her 1st rituximab infusion last , she stated that the infusion was uneventful but when she arrived home she had tingling in her forehead and on her forearms that did not last long and resolved. Denied any rashes or fevers. She states that she is doing fairly well overall. States that her cough has improved. She mentions that she has been having right-sided pain, that pain started when she was coughing but it started after the chest x- ray was done. She states that it hurts with movement. Most recent history by Dr. Martinez : The patient returns with her for evaluation of her interstitial lung disease and Sjogren's syndrome. On August 20 she underwent a left total hip replacement at [facility]. That seems to have gone okay. She has been having some home PT and now she has appointments for outpatient PT. There is still some discomfort with range of motion in the hip. There has been no drainage from the wound site. She does have an orthopedic follow-up later this week. She is having a dry cough. She had a COVID infection in early July. The symptoms subsided except for a dry cough. The dry cough has worsened after her surgery. She said the PT is been doing home oximetry and they have not seen any abnormalities. There has been no sputum production, fevers, chills, dyspnea or chest pain. The peripheral joints and muscles are achy as usual from her fibromyalgia but none are swollen. She did talk to Pulmonary and she received a course of prednisone for the cough and that did improve but the dry cough is still present. She is down to 20 mg daily on the prednisone and this is the last day. She does have an albuterol inhaler and Arnuity inhaler. Another inhaler was to replace the Arnuity but the co-payment was high and she has not been able to afford it yet. She remains on hydroxychloroquine 200 mg b.i.d. She would be due for another rituximab infusion this month for her ILD. She had a chest CT scan in June showing still the presence of thin wall cysts but the overall impression was that it was unchanged from the previous one from last year. [facility] Medical History Cervical spondylosis Lumbar spondylosis Esophageal dysmotility Sjogren's syndrome with gastrointestinal involvement Yawning Hypersomnia Snoring delivery delivered Long-term use of hydroxychloroquine Osteoarthritis cervical spine Fibromyalgia Osteoarthritis of lumbar spine Tendinitis of left rotator cuff Surgical History H/O elbow surgery H/O toe surgery Family History Mother HTN (hypertension) Osteoarthritis Parkinson disease Diabetes Hypercholesteremia Age related osteoporosis Diverticulitis Father No problems noted. Social History Household Members: Spouse Housing: House Are you a primary health care attorney to a significant other at home: No Do you presently have visiting nurse or other home services: No 75 years or older and lives alone: No Alcohol intake: never Patient Tobacco Use Status: Never used Tobacco e-Cigarette/Vaping Use: Never Used service: No Current occupational status: disabled Review of Systems Const Denies fever(s) Card Reports chest pain and Reports chest pain with activity Resp Denies cough Musc Denies arthralgias and Denies joint swelling Physical Exam Vital Signs: Last Vital Signs Temp 97.7 F 10/06/23 07:39 Pulse 70 10/06/23 07:39 BP 132/74 10/06/23 07:39 Pulse Ox 99 10/06/23 07:39 Oxygen Delivery Method Room Air 10/06/23 07:39 BMI result Body Mass Index 33.0 Const General: cooperative, healthy appearing and comfortable Nutritional Appearance: obese Orientation/consciousness: patient oriented x3 Limitations: no limitations HEENT Head: Yes normocephalic and Yes atraumatic Mouth: moist mucous membranes Chest Other: Right lower ribs tenderness anteriorly Resp Effort & Inspection: normal respiratory effort and able to speak in complete sentences Auscultation: diminished lung sounds diffuse Cardio Rate: regular rate Rhythm: regular rhythm GI Inspection: No distended Palpation (GI): Soft to palpation and nontender Skin General skin exam: no rashes or lesions noted Neuro General: patient oriented x3 Extrem Other: No active synovitis Normal nailfold capillaroscopy Few fibromyalgia tender points Assessment & Plan Assessment & Plan (1) Sjogren syndrome with inflammatory arthritis: Comment: Dry eyes and mouth, +RF, +MARCELLO, +++Ro52 +++Ro60 +++La Recurrent parotid swelling. cystic lung changes consistent with LIP On hydroxychloroquine - Eye exam 02/04. 03/08, 08/08, 09/08, 05/10, 01/2021, 02/2022,02/2023 Code(s): M35.05 - Sjogren syndrome with inflammatory arthritis Plan: 57-year-old female with Sjogren's disease with interstitial lung disease mostly demonstrated by multiple thin wall cysts.? Repeat CT scanning in June 2023 showed these look to be stable after a dose of rituximab in January and February.? She started to have a dry cough after a COVID infection in July, she received multiple prednisone courses for suspected asthma exacerbation/bronchitis induced by COVID infection.? Now the cough seems to have resolved.? She received her 1st dose of rituximab a few days ago and she will be getting the 2nd dose in about 10 days Continue with hydroxychloroquine 200 mg Twice daily Labs before next visit in 10 weeks (2) Interstitial lung disease due to collagen vascular disease: Comment: LIP or CLARKE picture on CT - probably related to Sjogren's. 11/[address] [facility] showing increasing size of the cysts. 02/13/23, 02/27/2023 Ruxience(rituximab) one gram given on each date Code(s): J84.9 - Interstitial pulmonary disease, unspecified; M35.9 - Systemic involvement of connective tissue, unspecified Plan: As above (3) Long-term use of hydroxychloroquine: Comment: Eye exam 02/04. 03/08, 08/08, 09/08, 05/10, 01/2021, 02/2022 Code(s): Z79.899 - Other long-term (current) drug therapy Plan: Continue to follow-up regularly with Ophthalmology (4) Fibromyalgia: Comment: On Savella but stopped due to cost; cymbalta not tolerated Code(s): M79.7 - Fibromyalgia Plan: Continue with gabapentin Plan I spent 46 minutes reviewing patient's chart, evaluating patient, ordering diagnostic workup, counseling patient and documenting in the chart Orders: Orders Comprehensive Met. Panel 10 Weeks . - Sjogren syndrome with inflammatory arthritis Anti DNA DS Antibody 10 Weeks . - Sjogren syndrome with inflammatory arthritis Complement C4 10 Weeks M3. - Sjogren syndrome with inflammatory arthritis Protein Creatinine Ratio, Ur 10 Weeks . - Sjogren syndrome with inflammatory arthritis UA w Microscopic 10 Weeks . - Sjogren syndrome with inflammatory arthritis XR ribs BI min 4V w CXR1V Today R07.9 - Chest pain, unspecified Complete Blood Count Auto Diff 10 Weeks . - Sjogren syndrome with inflammatory arthritis C Reactive Protein 10 Weeks . - Sjogren syndrome with inflammatory arthritis Erythrocyte Sedimentation Rate 10 Weeks M35.05 - Sjogren syndrome with inflammatory arthritis Complement C3 10 Weeks M35.05 - Sjogren syndrome with inflammatory arthritis Medications: Refilled hydroxychloroquine (Plaquenil) 200 mg PO BID 180 tabs 1RF M35.05 - Sjogren syndrome with inflammatory arthritis gabapentin 100 mg PO TID 270 caps 1RF M79.7 - Fibromyalgia Coding Level of Care Code Est Pt Level 5 (71396) Diagnoses Sjogren syndrome with inflammatory arthritis M35.05 Interstitial lung disease due to collagen vascular disease J84.9; M35.9 Long-term use of hydroxychloroquine Z79.899 Fibromyalgia M79.7
== END 2023-10-06 08:07 | disposition home or self-care (01) ==
PROVIDERS: PCP Internal Medicine; Visit Provider Student in an Organized Health Care Education/Training Program
DX: M35.05 Sjogren syndrome with inflammatory arthritis (principal); J84.9 Interstitial pulmonary disease, unspecified; M35.89 Other specified systemic involvement of connective tissue; Z79.899 Other long term (current) drug therapy; M79.7 Fibromyalgia
CPT/HCPCS: 99215

== ENCOUNTER 2023-10-06 07:36 | Outpatient (REF) | payer MEDICARE, SELFPAY ==
--- NOTE | ~2023-10-06 | XR_ITS ---
EXAMINATION: XR RIBS, BILATERAL CLINICAL INFORMATION: Chest pain. COMPARISON: None available. TECHNIQUE: Total 6 views of bilateral ribs. Chest PA 1 view. FINDINGS: CHEST: Lungs are clear. No consolidation, pneumothorax, or pleural effusion. The cardiomediastinal silhouette and pulmonary vasculature are normal. No bony abnormality seen. BILATERAL RIBS: There is no visible fracture or bony abnormality. The soft tissues are normal. XR/XR ribs BI min 4V w CXR1V IMPRESSION: Unremarkable bilateral rib exam. Unremarkable chest exam
== END 2023-10-06 07:37 | disposition home or self-care (01) ==
LOC: HO.XRAY 07:36
PROVIDERS: PCP Internal Medicine; Visit Provider Student in an Organized Health Care Education/Training Program
DX: R07.9 Chest pain, unspecified (principal); M35.02 Sjogren syndrome with lung involvement; M35.9 Systemic involvement of connective tissue, unspecified; J84.9 Interstitial pulmonary disease, unspecified; M79.7 Fibromyalgia; Z79.899 Other long term (current) drug therapy
CPT/HCPCS: 71111; 99212

== ENCOUNTER 2023-10-29 13:26 | Outpatient (AMB) | payer MEDICARE, SELFPAY ==
--- NOTE | 2023-10-29 13:39 | MHC.OFFVIS ---
Intake Vital Signs 10/29/23 13:44 Height 5 ft 2 in Weight 182 lb 6 oz BMI 33.4 BP 132/80 Blood Pressure Location Lt brachial Position Sitting Pulse 69 Pulse Source Pulse Oximeter Pulse Oximetry (%) 97 Oxygen Delivery Method Room Air Intake Visit Reasons: 3 mnts f/u for Sleep per - MARQUEZ Intake Note: Patient presents for 3 months f/u still having trouble sleeping and catching her breath Allergies No Known Allergies Allergy (Verified 10/29/23 13:43) HPI HPI Comments History of Present Illness Details 57 y/o female with Sjogrens disease, multiple idiopathic lung cysts, lymphoid interstitial pneumonitis comes for follow up of sleep study and difficulty yawning. The sleep study result was normal, but patient states that she did not sleep well for the sleep study. She was awake most of the time. She sees a Ticket Scheduler in [place] and Dr. Barbosa at [place]. The difficulty yawning has been there for a few years now but has noticed worsening in the past 6 mths. She denies increase or decrease in yawning but describes as unable to fully complete her yawning and expel air. She denies pain. Pt reports shortness of breath. Pt has difficulty sleeping with frequent arousals and snoring. She denies any depression or anxiety [facility] Medical History (Updated 10/06/23 @ 08:14 by Justus Cuellar MD) Cervical spondylosis Lumbar spondylosis Esophageal dysmotility Sjogren's syndrome with gastrointestinal involvement Yawning Hypersomnia Snoring delivery delivered Long-term use of hydroxychloroquine Osteoarthritis cervical spine Fibromyalgia Osteoarthritis of lumbar spine Tendinitis of left rotator cuff Surgical History (Updated 10/29/23 @ 13:50 by Nataly Stephenson CMA) History of hip surgery H/O elbow surgery H/O toe surgery Family History Mother HTN (hypertension) Osteoarthritis Parkinson disease Diabetes Hypercholesteremia Age related osteoporosis Diverticulitis Father No problems noted. Social History Household Members: Spouse Housing: House Are you a primary career center advisor to a significant other at home: No Do you presently have visiting nurse or other home services: No 75 years or older and lives alone: No Alcohol intake: never Patient Tobacco Use Status: Never used Tobacco e-Cigarette/Vaping Use: Never Used service: No Current occupational status: disabled Review of Systems Const All systems reviewed & are unremarkable except as noted in HPI and below Physical Exam Vital Signs: Last Vital Signs Pulse 69 10/29/23 13:44 BP 132/80 10/29/23 13:44 Pulse Ox 97 10/29/23 13:44 Oxygen Delivery Method Room Air 10/29/23 13:44 BMI result Body Mass Index 33.4 Const General: cooperative, healthy appearing and comfortable Nutritional Appearance: overweight Orientation/consciousness: patient oriented x3 Neuro Other: Mallampatti grade 4 Limited motor exam in left UE and LE due to pain Mild ptosis General: patient oriented x3, tone normal and moves all extremities Cranial nerves: Yes Bilaterally intact EOM present, Yes Nystagmus not present and Yes Normal facial strength present Cognition (Neuro): normal cognition Gait exam (Neuro): Antalgic gait present Motor exam (neuro): 5/5 motor strength present throughout and Normal motor muscle tone present throughout Deep tendon reflexes (DTR's): Right triceps reflex intensity grade: 2+, Left triceps reflex intensity grade: 2+, Rt Biceps (C5, C6): 2+, Left biceps reflex intensity grade: 2+, Right brachioradialis reflex intensity grade: 2+, Left brachioradialis reflex intensity grade: 2+, Right patellar reflex intensity grade: 2+ and Left patellar reflex intensity grade: 2+ Coordination: [id number] test normal Assessment & Plan Assessment & Plan (1) Yawning: Comment: ? related to Obstructed upper airway disease, ? neuromuscular weakness ? pulmonary issues. Code(s): R06.89 - Other abnormalities of breathing (2) Hypersomnia: Code(s): G47.10 - Hypersomnia, unspecified (3) Snoring: Code(s): R06.83 - Snoring Plan I will evaluate her with in lab sleep test to r/o sleep apnea. The home sleep study was inconclusive. F/u Pulmonary Will consider EMG. Orders: Orders RT PSG in-lab sleep study 10/29/23 G47.10 - Hypersomnia, unspecified, R06.83 - Snoring Coding Level of Care Code Est Pt Level 3 (31253) Diagnoses Yawning R06.89 Hypersomnia G47.10 Snoring R06.83
[2023-10-29 13:44] VITALS: BP 132/80; PULSE 69; O2SAT 97; BMI 33.4
== END 2023-10-29 14:11 | disposition home or self-care (01) ==
PROVIDERS: PCP Internal Medicine; Visit Provider Nurse Practitioner Family
DX: R06.89 Other abnormalities of breathing (principal); G47.10 Hypersomnia, unspecified; R06.83 Snoring
CPT/HCPCS: 99213

== ENCOUNTER → 2023-10-29 13:26 | Outpatient (BNVA) | payer MEDICARE, SELFPAY | PROVIDERS: PCP Internal Medicine; Visit Provider Nurse Practitioner Family | DX: R06.89 Other abnormalities of breathing (principal); R06.83 Snoring; G47.10 Hypersomnia, unspecified | CPT/HCPCS: 99212 ==

== ENCOUNTER → 2023-12-03 20:30 | Outpatient (REF) | payer MEDICARE, SELFPAY | LOC: HO.SL 20:30 | PROVIDERS: PCP Internal Medicine; Visit Provider Nurse Practitioner Family | DX: G47.10 Hypersomnia, unspecified (principal); R06.83 Snoring | CPT/HCPCS: 95810 ==

== ENCOUNTER → 2023-12-03 21:13 | Outpatient (BNV) | payer MEDICARE, SELFPAY | PROVIDERS: PCP Internal Medicine; Visit Provider Psychiatry & Neurology Neurology | DX: G47.10 Hypersomnia, unspecified (principal) | CPT/HCPCS: 95810 ==

== ENCOUNTER 2023-12-11 10:57 | Outpatient (REF) | payer MEDICARE, SELFPAY ==
[2023-12-11 13:30] LABS: MANUAL DIFF FLAG NO
[2023-12-11 13:46] LABS: Basophils Percent Auto 0.5 % (0-2); Eosinophils Absolute Auto 0.1 X10*3/uL (0.0-0.4); Eosinophils Percent Auto 2.4 % (0-4); Hematocrit 36.4 % (37.0-47.0); Hemoglobin 12.2 g/dl (12.0-16.0); Lymphocytes Absolute Auto 0.9 X10*3/uL (1.2-4.9); Lymphocytes Percent Auto 22.8 % (20-40); Mean Corpuscular HGB Conc 33.5 g/dl (31.0-35.0); Mean Corpuscular Hemoglobin 28.8 pg (27.0-33.0); Mean Corpuscular Volume 86.1 fL (80.0-98.0); Mean Platelet Volume 10.1 fL (9.4-12.3); Monocytes Absolute Auto 0.5 X10*3/uL (0.1-1.2); Monocytes Percent Auto 11.9 % (2-11); Neutrophils Absolute Auto 2.4 x10*3/uL (2.0-8.3); Neutrophils Percent Auto 62.4 % (45-73); Platelet Count 282 X10*3/uL (160-400); Red Blood Count 4.23 X10*6/uL (4.20-5.50); White Blood Count 3.8 X10*3/uL (4.8-10.8)
[2023-12-11 13:50] LABS: Appearance Urine Clear; Color Urine Yellow; Glucose Urine UA Negative (Negative); Leukocyte Esterase Urine Trace (Negative); Nitrite Urine Negative (Negative); PH 6.5 (5.0-9.0); Specific Gravity - Urine <= 1.005 (1.005-1.025); UMIC TRIGGER UA YES; Urine Blood Negative (Negative); Urine Ketones Negative (Negative); Urine Protein Negative (Neg-Trace)
[2023-12-11 13:55] LABS: Alanine Aminotransferase 17 U/L (0-31); Albumin Level 4.3 g/dL (3.5-5.0); Alkaline Phosphatase 71 U/L (39-117); Anion Gap 12 (12-20); Aspartate Amino Transferase 20 U/L (5-31); Bilirubin Total 0.4 mg/dL (0.0-1.0); Blood Urea Nitrogen 11 mg/dL (9-16); C Reactive Protein 0.29 mg/dL (< or = 0.50); Calcium 9.9 mg/dL (8.4-10.2); Carbon Dioxide 28 mmol/L (22-29); Chloride 107 mmol/L (96-108); Estimated Glomerular Filt Rate > 60; Glucose Random 95 mg/dL (60-115); Potassium 4.1 mmol/L (3.3-5.1); Sodium 143 mmol/L (135-145); Total Protein 7.8 g/dL (6.5-8.0)
[2023-12-11 13:57] LABS: Bacteria Urine None Seen (None Seen); Hyaline Casts Urine 0-2 /LPF (0-2); RBC Urine 0-2 /HPF (0-2); Squamous Epithelial Cell Urine 0-2 /HPF (0-2); WBC Urine 0-5 /HPF (0-5)
[2023-12-11 14:20] LABS: Creatinine Urine 19.91 mg/dL; Total Protein Urine Random < 7 mg/dL (<12)
[2023-12-11 14:23] LABS: Erythrocyte Sedimentation Rate 28 MM/HR (0-20)
[2023-12-12 16:08] LABS: Complement C3 153 mg/dL (83-193)
[2023-12-12 20:33] LABS: Anti DNA DS Antibody <1 IU/mL
== END 2023-12-11 10:58 | disposition home or self-care (01) ==
LOC: HO.10HDL 10:57
PROVIDERS: Visit Provider Student in an Organized Health Care Education/Training Program
DX: M35.05 Sjogren syndrome with inflammatory arthritis (principal)
CPT/HCPCS: 36415; 80053; 81001; 82570; 84156; 85025; 85652; 86140; 86160; 86225

== ENCOUNTER 2023-12-15 08:13 | Outpatient (AMB) | payer MEDICARE, SELFPAY ==
--- NOTE | 2023-12-15 08:18 | MHC.OFFVIS ---
Intake Vital Signs 12/15/23 08:19 Height 5 ft 2 in Weight 180 lb 12.465 oz BMI 33.1 BP 146/80 H Blood Pressure Location Rt brachial Position Sitting Pulse 66 Pulse Source Pulse Oximeter Pulse Oximetry (%) 98 Oxygen Delivery Method Room Air Intake Visit Reasons: Sjogren's Intake Note: Patient last seen 10/06/23 presents today for follow up and test results. 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: No Accompanied by: Self / Same As Patient Allergies No Known Allergies Allergy (Verified 12/15/23 08:21) Medication List - Last Reconciled 12/15/23 by Justus Cuellar MD acetaminophen (Tylenol) 650 mg PO Q6H PRN albuterol 90 mcg/actuation 108 mcg inhalation .EVERY 6 HOURS PRN celecoxib 200 mg PO BID cyclobenzaprine 10 mg PO BID PRN cyclosporine 0.05% (Restasis) 2 drps ophthalmic (eye) TID fluticasone furoate 50 mcg/actuation inhalation DAILY PRN fluticasone furoate 100 mcg/actuation (Arnuity Ellipta) 1 inh inhalation DAILY gabapentin 100 mg PO TID hydroxychloroquine (Plaquenil) 200 mg PO BID meclizine 12.5 mg PO TID PRN nortriptyline 10 - 30 mg (1 - 3 x 10 mg) PO BEDTIME omeprazole 40 mg PO DAILY prednisone mg PO rituximab (Rituxan) IV triamcinolone acetonide (Nasacort) 1 spray intranasal DAILY triamcinolone acetonide 0.1% 1 appl topical BID PRN HPI HPI Comments History of Present Illness Details 58-year-old female with Sjogren's complicated by ILD who returns for follow-up. She is s/p rituximab 1 g x 2 doses 09/2023. She is feeling fairly well overall. She states that she has been having left knee pain. She states that she has history of left knee pain and arthritis for many years. She used to get cortisone injections. Last injection was more than a year ago. She is also having bilateral ankle pain. Worse on the right. Denies any pulmonary complaints today. States that she gets intermittent acid reflux. She takes omeprazole 40 mg daily omeprazole Most recent history by Dr. Martinez : The patient returns with her for evaluation of her interstitial lung disease and Sjogren's syndrome. On August 20 she underwent a left total hip replacement at [facility]. That seems to have gone okay. She has been having some home PT and now she has appointments for outpatient PT. There is still some discomfort with range of motion in the hip. There has been no drainage from the wound site. She does have an orthopedic follow-up later this week. She is having a dry cough. She had a COVID infection in early July. The symptoms subsided except for a dry cough. The dry cough has worsened after her surgery. She said the PT is been doing home oximetry and they have not seen any abnormalities. There has been no sputum production, fevers, chills, dyspnea or chest pain. The peripheral joints and muscles are achy as usual from her fibromyalgia but none are swollen. She did talk to Pulmonary and she received a course of prednisone for the cough and that did improve but the dry cough is still present. She is down to 20 mg daily on the prednisone and this is the last day. She does have an albuterol inhaler and Arnuity inhaler. Another inhaler was to replace the Arnuity but the co-payment was high and she has not been able to afford it yet. She remains on hydroxychloroquine 200 mg b.i.d. She would be due for another rituximab infusion this month for her ILD. She had a chest CT scan in June showing still the presence of thin wall cysts but the overall impression was that it was unchanged from the previous one from last year. [facility] Medical History Cervical spondylosis Lumbar spondylosis Esophageal dysmotility Sjogren's syndrome with gastrointestinal involvement Yawning Hypersomnia Snoring delivery delivered Long-term use of hydroxychloroquine Osteoarthritis cervical spine Fibromyalgia Osteoarthritis of lumbar spine Tendinitis of left rotator cuff Surgical History History of hip surgery H/O elbow surgery H/O toe surgery Family History Mother HTN (hypertension) Osteoarthritis Parkinson disease Diabetes Hypercholesteremia Age related osteoporosis Diverticulitis Father No problems noted. Social History Household Members: Spouse Housing: House Are you a primary lawn care professional to a significant other at home: No Do you presently have visiting nurse or other home services: No 75 years or older and lives alone: No Alcohol intake: never Patient Tobacco Use Status: Never used Tobacco e-Cigarette/Vaping Use: Never Used service: No Current occupational status: disabled Review of Systems Card Denies dyspnea and Denies dyspnea on exertion Resp Denies dyspnea and Denies dyspnea on exertion GI Reports heartburn Musc Reports arthralgias, Reports joint swelling, Reports limited range of motion and Reports stiffness Physical Exam Vital Signs: Last Vital Signs Pulse 66 12/15/23 08:19 BP 146/80 H 12/15/23 08:19 Pulse Ox 98 12/15/23 08:19 Oxygen Delivery Method Room Air 12/15/23 08:19 BMI result Body Mass Index 33.1 Const General: cooperative, healthy appearing and comfortable Nutritional Appearance: obese Orientation/consciousness: patient oriented x3 Limitations: no limitations HEENT Head: Yes normocephalic and Yes atraumatic Mouth: moist mucous membranes Resp Effort & Inspection: normal respiratory effort and able to speak in complete sentences Auscultation: diminished lung sounds diffuse Cardio Rate: regular rate Rhythm: regular rhythm GI Inspection: No distended Palpation (GI): Soft to palpation and nontender Skin General skin exam: no rashes or lesions noted Neuro General: patient oriented x3 Extrem Other: Left knee warmth and swelling Right ankle warmth no significant swelling Normal nailfold capillaroscopy Few fibromyalgia tender points Office Procedures Joint Injection/Drain Joint Injection/Drain Primary Site: left knee Prep: site was prepped using sterile technique and ethochloride spray was applied Injected: 40 mg of, Kenalog and other (2 mL of 1% lidocaine) Approach Used: medial parapatellar Procedure: The patient tolerated the procedure well Coding Details: With the patient's consent the left knee was prepped with ChloraPrep and alcohol. The skin was anesthetized with 2 cc of 1% lidocaine. The knee was then injected with 40 mg of triamcinolone and 1 cc of I % lidocaine. The patient tolerated the procedure with no immediate adverse effects. 65890 - Large joint Procedure code (CPT) selection complete Assessment & Plan Assessment & Plan (1) Sjogren syndrome with inflammatory arthritis: Comment: Dry eyes and mouth, +RF, +MARCELLO, +++Ro52 +++Ro60 +++La Recurrent parotid swelling. cystic lung changes consistent with LIP On hydroxychloroquine - Eye exam 02/04. 03/08, 08/08, 09/08, 05/10, 01/2021, 02/2022,02/2023 RTX 1 g X2 doses 02/2023 & 09/2023 Code(s): M35.05 - Sjogren syndrome with inflammatory arthritis Plan: 58-year-old female with Sjogren's disease with interstitial lung disease mostly demonstrated by multiple thin wall cysts.? Repeat CT scanning in June 2023 showed these look to be stable after a dose of rituximab in January and February.? She received another course of rituximab 09/2023. She is doing well today from a respiratory standpoint. Advised patient to try to sleep as elevated as possible to reduce reflux and aspiration. She states that she has an adjustable bed. If not improving, or unable to sleep elevated, will consider increasing her omeprazole to 40 mg Twice daily Continue with hydroxychloroquine 200 mg Twice daily Labs before next visit in 3 months (2) Interstitial lung disease due to collagen vascular disease: Comment: LIP or CLARKE picture on CT - probably related to Sjogren's. 11/3022 CT at the [facility] showing increasing size of the cysts. 02/13/23, 02/27/2023 Ruxience(rituximab) one gram given on each date Code(s): J84.9 - Interstitial pulmonary disease, unspecified; M35.9 - Systemic involvement of connective tissue, unspecified Plan: As above (3) Long-term use of hydroxychloroquine: Comment: Eye exam 02/04. 03/08, 08/08, 09/08, 05/10, 01/2021, 02/2022 Code(s): Z79.899 - Other senior living (current) drug therapy Plan: Continue to follow-up regularly with Ophthalmology (4) Fibromyalgia: Comment: On Savella but stopped due to cost; cymbalta not tolerated Code(s): M79.7 - Fibromyalgia Plan: Continue with gabapentin (5) Osteoarthritis of left knee: Code(s): M17.12 - Unilateral primary osteoarthritis, left knee Qualifiers: Osteoarthritis type: primary Qualified Code(s): M17.12 - Unilateral primary osteoarthritis, left knee Plan: Versus inflammatory arthritis. Injected in clinic today. Will check an anti CCP. Will consider checking knee x-rays next visit Plan I spent 46 minutes reviewing patient's chart, evaluating patient, ordering diagnostic workup, counseling patient and documenting in the chart Orders: Orders Complete Blood Count Auto Diff 3 Months M35.05 - Sjogren syndrome with inflammatory arthritis, Z79.899 - Other buttermaker (current) drug therapy C Reactive Protein 3 Months M35.05 - Sjogren syndrome with inflammatory arthritis, Z79.899 - Other senior living (current) drug therapy Erythrocyte Sedimentation Rate 3 Months M35.05 - Sjogren syndrome with inflammatory arthritis, Z79.899 - Other buttermaker (current) drug therapy AMB Joint Injection/Aspiration Today M17.12 - Unilateral primary osteoarthritis, left knee Comprehensive Met. Panel 3 Months M35.05 - Sjogren syndrome with inflammatory arthritis, Z79.899 - Other buttermaker (current) drug therapy Cyclic Citrullinated Peptide 3 Months M06.9 - Rheumatoid arthritis, unspecified Coding Level of Care Code Est Pt Level 5 (08912) Diagnoses Sjogren syndrome with inflammatory arthritis M35.05 Interstitial lung disease due to collagen vascular disease J84.9; M35.9 Long-term use of hydroxychloroquine Z79.899 Fibromyalgia M79.7 Primary osteoarthritis of left knee M17.12 Osteoarthritis type: primary CPT Codes Coding - 37542 Large joint: 31972 - Large joint ([id number])
[2023-12-15 08:19] VITALS: BP 146/80; PULSE 66; O2SAT 98; BMI 33.1
== END 2023-12-15 08:50 | disposition home or self-care (01) ==
PROVIDERS: PCP Internal Medicine; Visit Provider Student in an Organized Health Care Education/Training Program
DX: M35.05 Sjogren syndrome with inflammatory arthritis (principal); J84.9 Interstitial pulmonary disease, unspecified; M35.89 Other specified systemic involvement of connective tissue; Z79.899 Other long term (current) drug therapy; M79.7 Fibromyalgia; M17.12 Unilateral primary osteoarthritis, left knee
CPT/HCPCS: 20610; 99215

== ENCOUNTER → 2023-12-15 08:13 | Outpatient (BNVA) | payer MEDICARE, SELFPAY | PROVIDERS: PCP Internal Medicine; Visit Provider Student in an Organized Health Care Education/Training Program | DX: M35.05 Sjogren syndrome with inflammatory arthritis (principal); M35.9 Systemic involvement of connective tissue, unspecified; M79.7 Fibromyalgia; M17.12 Unilateral primary osteoarthritis, left knee; J84.9 Interstitial pulmonary disease, unspecified; Z79.899 Other long term (current) drug therapy | CPT/HCPCS: 20610; 99212 ==

== ENCOUNTER 2024-01-06 13:54 | Outpatient (AMB) | payer MEDICARE, SELFPAY ==
--- NOTE | 2024-01-06 13:56 | A.OFFVIS_ITS ---
Intake Vital Signs 01/06/24 13:57 Height 5 ft 2 in Weight 179 lb 3.773 oz BMI 32.8 BP 136/74 Blood Pressure Location Rt brachial Position Sitting Pulse 57 Pulse Source Pulse Oximeter Pulse Oximetry (%) 100 Oxygen Delivery Method Room Air Intake Visit Reasons: Cortisone injection L shoulder Intake Note: Pt seen 3 wks ago presents today with c/o L shoulder pain. 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 Accompanied by: Self / Same As Patient Allergies No Known Allergies Allergy (Verified 01/06/24 13:56) Medication List - Last Reconciled 01/06/24 by Justus Cuellar MD acetaminophen (Tylenol) 650 mg PO Q6H PRN albuterol 90 mcg/actuation 108 mcg inhalation .EVERY 6 HOURS PRN celecoxib 200 mg PO BID cyclobenzaprine 10 mg PO BID PRN cyclosporine 0.05% (Restasis) 2 drps ophthalmic (eye) TID fluticasone furoate 50 mcg/actuation inhalation DAILY PRN fluticasone furoate 100 mcg/actuation (Arnuity Ellipta) 1 inh inhalation DAILY gabapentin 100 mg PO TID hydroxychloroquine (Plaquenil) 200 mg PO BID meclizine 12.5 mg PO TID PRN nortriptyline 10 - 30 mg (1 - 3 x 10 mg) PO BEDTIME omeprazole 40 mg PO DAILY prednisone mg PO rituximab (Rituxan) IV triamcinolone acetonide (Nasacort) 1 spray intranasal DAILY triamcinolone acetonide 0.1% 1 appl topical BID PRN HPI HPI Comments History of Present Illness Details 58-year-old female with Sjogren's compli cated by ILD who returns for follow-up. She is here requesting left shoulder injection. She states that she would get periodic shoulder injections by Dr. Martinez and by business manager college or [employer] Dr. Griggs. Most recent injection Dr. Martinez was in 2021. She states that she has been a little bit more active recently. She states that she gets a little sore after the injection for about 1 to 2 days but it generally helps her. Most recent history by Dr. Martinez : The patient returns with her for evaluation of her interstitial lung disease and Sjogren's syndrome. On August 20 she underwent a left total hip replacement at [facility]. That seems to have gone okay. She has been having some home PT and now she has appointments for o utpatient PT. There is still some discomfort with range of motion in the hip. There has been no drainage from the wound site. She does have an orthopedic follow-up later this week. She is having a dry cough. She had a COVID infection in early July. The symptoms subsided except for a dry cough. The dry cough has worsened after her surgery. She said the PT is been doing home oximetry and they have not seen any abnormalities. There has been no sputum production, fevers, chills, dyspnea or chest pain. The peripheral joints and muscles are achy as usual from her fibromyalgia but none are swollen. She did talk to Pulmonary and she received a course of prednisone for the cough and that did improve but the dry cough is still present. She is down to 20 mg daily on the prednisone and this is the last day. She does have an albuterol inhaler and Arnuity inhaler. Another inhaler was to replace the Arnuity but the co-payment was high and she has not been able to afford it yet. She remains on hydroxychloroquine 200 mg b.i.d. She would be due for another rituximab infusion this month for her ILD. She had a chest CT scan in June showing still the presence of thin wall cysts but the overall impression was that it was unchanged from the previous one from last year. [facility] Medical History Cervical spondylosis Lumbar spondylosis Esophageal dysmotility Sjogren's syndrome with gastrointestinal involvement Yawning Hypersomnia Snoring delivery delivered Long-term use of hydroxychloroquine Osteoarthritis cervical spine Fibromyalgia Osteoarthritis of lumbar spine Tendinitis of left rotator cuff Surgical History History of hip surgery H/O elbow surgery H/O toe surgery Family History Mother HTN (hypertension) Osteoarthritis Parkinson disease Diabetes Hypercholesteremia Age related osteoporosis Diverticulitis Father No problems noted. Social History Household Members: Spouse Housing: House Are you a primary post acute care nurse to a significant other at home: No Do you presently have visiting nurse or other home services: No 75 years or older and lives alone: No Alcohol intake: never Patient Tobacco Use Status: Never used Tobacco e-Cigarette/Vaping Use: Never Used service: No Current occupational status: disabled Review of Systems [facility] [place] arthralgias, Reports limited range of motion and Reports stiffness Physical Exam Vital Signs: Oxygen Delivery Method Room Air 01/06/24 13:57 Const General: cooperative, healthy appearing and comfortable Nutritional Appearance: obese Limitations: no limitations HEENT Head: Yes normocephalic and Yes atraumatic Resp Effort & Inspection: normal respiratory effort and able to speak in complete sentences Extrem Other: Limited range of motion of left shoulder Positive empty can test and Speed's test on the left Taut muscle band over the left trapezius muscle. Office Procedures Joint Injection/Drain Joint Injection/Drain Primary Site: left shoulder Prep: site was prepped using sterile technique and ethochloride spray was applied Injected: 40 mg of, Kenalog and other (2 mL of 1% lidocaine) Approach Used: posterolateral Procedure: The patient tolerated the procedure well Coding Details: With the patient's consent the left shoulder was prepped with ChloraPrep and alcohol. Under a topical ethyl chloride spray the left subacromial space was injected with 40 mg of triamcinolone and 2 cc of 1% lidocaine. The patient tolerated the procedure without any acute adverse effects. 10579 - Large joint Procedure code (CPT) selection complete Assessment & Plan Assessment & Plan (1) Subacromial bursitis of left shoulder joint: Code(s): M75.52 - Bursitis of left shoulder Plan: With patient's consent, left shoulder was injected with Kenalog today (2) Trapezius muscle spasm: Code(s): M62.838 - Other muscle spasm Plan: Patient has been taking Flexeril 5 mg Twice daily. Advised patient to increase it to 10 mg Twice daily for a few days. Plan I spent 20 minutes reviewing patient's chart, evaluating patient, counseling patient and documenting in the chart Orders: Orders AMB Joint Injection/Aspiration Today M75.52 - Bursitis of left shoulder Coding Level of Care Code Est Pt Level 4 (68008) Diagnoses Subacromial bursitis of left shoulder joint M75.52 Trapezius muscle spasm M62.838 CPT Codes Coding - Large joint: 87669 - Large joint ([id number])
[2024-01-06 13:57] VITALS: BP 136/74; PULSE 57; O2SAT 100; BMI 32.8
== END 2024-01-06 14:15 | disposition home or self-care (01) ==
PROVIDERS: PCP Internal Medicine; Visit Provider Student in an Organized Health Care Education/Training Program
DX: M75.52 Bursitis of left shoulder (principal); M62.838 Other muscle spasm
CPT/HCPCS: 20610

== ENCOUNTER → 2024-01-06 13:54 | Outpatient (BNVA) | payer MEDICARE, SELFPAY | PROVIDERS: PCP Internal Medicine; Visit Provider Student in an Organized Health Care Education/Training Program | DX: M75.52 Bursitis of left shoulder (principal); M62.838 Other muscle spasm | CPT/HCPCS: 20610 ==

== ENCOUNTER 2024-03-08 10:36 | Outpatient (REF) | payer MEDICARE, SELFPAY ==
[2024-03-08 13:14] LABS: MANUAL DIFF FLAG NO
[2024-03-08 13:36] LABS: Basophils Percent Auto 0.7 % (0-2); Eosinophils Absolute Auto 0.1 X10*3/uL (0.0-0.4); Eosinophils Percent Auto 2.9 % (0-4); Hematocrit 36.1 % (37.0-47.0); Hemoglobin 12.2 g/dl (12.0-16.0); Imm Gran Abs Auto 0.01 X10*3/uL (0.00-0.03); Imm Gran Pct Auto 0.2 % (0.0-0.4); Lymphocytes Absolute Auto 0.7 X10*3/uL (1.2-4.9); Lymphocytes Percent Auto 16.7 % (20-40); Mean Corpuscular HGB Conc 33.8 g/dl (31.0-35.0); Mean Corpuscular Hemoglobin 30.3 pg (27.0-33.0); Mean Corpuscular Volume 89.8 fL (80.0-98.0); Mean Platelet Volume 9.7 fL (9.4-12.3); Monocytes Absolute Auto 0.4 X10*3/uL (0.1-1.2); Monocytes Percent Auto 9.3 % (2-11); Neutrophils Absolute Auto 3.1 x10*3/uL (2.0-8.3); Neutrophils Percent Auto 70.2 % (45-73); Platelet Count 267 X10*3/uL (160-400); Red Blood Count 4.02 X10*6/uL (4.20-5.50); Red Cell Distribution Width 12.7 % (11.0-16.0); White Blood Count 4.4 X10*3/uL (4.8-10.8)
[2024-03-08 13:51] LABS: Alanine Aminotransferase 22 U/L (0-31); Albumin Level 4.3 g/dL (3.5-5.0); Alkaline Phosphatase 76 U/L (39-117); Anion Gap 12 (12-20); Aspartate Amino Transferase 22 U/L (5-31); Bilirubin Total 0.5 mg/dL (0.0-1.0); Blood Urea Nitrogen 9 mg/dL (9-16); C Reactive Protein 0.29 mg/dL (< or = 0.50); Carbon Dioxide 28 mmol/L (22-29); Chloride 107 mmol/L (96-108); Estimated Glomerular Filt Rate > 60; Glucose Random 86 mg/dL (60-115); Potassium 4.1 mmol/L (3.3-5.1); Sodium 143 mmol/L (135-145); Total Protein 7.7 g/dL (6.5-8.0)
[2024-03-08 14:16] LABS: Erythrocyte Sedimentation Rate 31 MM/HR (0-20)
[2024-03-10 14:33] LABS: Cyclic Citrullinated Peptide <16 UNITS
== END 2024-03-08 10:37 | disposition home or self-care (01) ==
LOC: HO.10HDL 10:36
PROVIDERS: Visit Provider Student in an Organized Health Care Education/Training Program
DX: Z79.899 Other long term (current) drug therapy (principal); M35.05 Sjogren syndrome with inflammatory arthritis; M06.9 Rheumatoid arthritis, unspecified
CPT/HCPCS: 36415; 80053; 85025; 85652; 86140; 86200

== ENCOUNTER 2024-03-10 09:12 | Outpatient (AMB) | payer MEDICARE, SELFPAY ==
--- NOTE | 2024-03-10 09:13 | A.OFFVIS_ITS ---
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 Accompanied by: Self / Same As Patient Allergies No Known Allergies Allergy (Verified 03/10/24 09:20) Medication List - Last Reconciled 03/10/24 by Justus Cuellar MD acetaminophen (Tylenol) 650 mg PO Q6H PRN albuterol sulfate 90 mcg/actuation inhalation celecoxib 200 mg PO BID cyclobenzaprine 10 mg PO BID PRN cyclosporine 0.05% (Restasis) 2 drps ophthalmic (eye) TID fluticasone furoate 50 mcg/actuation inhalation DAILY PRN fluticasone furoate 100 mcg/actuation (Arnuity Ellipta) 1 inh inhalation DAILY gabapentin 100 mg PO TID hydroxychloroquine 200 mg PO BID meclizine 12.5 mg PO TID PRN nortriptyline 50 mg PO BEDTIME omeprazole 40 mg PO DAILY rituximab (Rituxan) IV triamcinolone acetonide (Nasacort) 1 spray intranasal DAILY HPI Comments Details: 58-year-old female with Sjogren's complicated by ILD who returns for follow-up. She states that she continues to have left shoulder pain. Continues to have reduced range of motion. Left shoulder injection done last visit was not helpful. She has been having pain and swelling of her left hand MCPs. It is improving but did not resolve. She denies any cough or shortness of breath. No other symptoms. Denies any recent illnesses. Most recent history by Dr. Martinez : The patient returns with her for evaluation of her interstitial lung disease and Sjogren's syndrome. On August 20 she underwent a left total hip replacement at [facility]. That seems to have gone okay. She has been having some home PT and now she has appointments for outpatient PT. There is still some discomfort with range of motion in the hip. There has been no drainage from the wound site. She does have an orthopedic follow-up later this week. She is having a dry cough. She had a COVID infection in early July. The symptoms subsided except for a dry cough. The dry cough has worsened after her surgery. She said the PT is been doing home oximetry and they have not seen any abnormalities. There has been no sputum production, fevers, chills, dyspnea or chest pain. The peripheral joints and muscles are achy as usual from her fibromyalgia but none are swollen. She did talk to Pulmonary and she received a course of prednisone for the cough and that did improve but the dry cough is still present. She is down to 20 mg daily on the prednisone and this is the last day. She does have an albuterol inhaler and Arnuity inhaler. Another inhaler was to replace the Arnuity but the co-payment was high and she has not been able to afford it yet. She remains on hydroxychloroquine 200 mg b.i.d. She would be due for another rituximab infusion this month for her ILD. She had a chest CT scan in June showing still the presence of thin wall cysts but the overall impression was that it was unchanged from the previous one from last year. [facility] Medical History Cervical spondylosis Lumbar spondylosis Esophageal dysmotility Sjogren's syndrome with gastrointestinal involvement Yawning Hypersomnia Snoring delivery delivered Long-term use of hydroxychloroquine Osteoarthritis cervical spine Fibromyalgia Osteoarthritis of lumbar spine Tendinitis of left rotator cuff Surgical History History of hip surgery H/O elbow surgery H/O toe surgery Family History Mother HTN (hypertension) Osteoarthritis Parkinson disease Diabetes Hypercholesteremia Age related osteoporosis Diverticulitis Father No problems noted. Social History Household Members: Spouse Housing: House Are you a primary acute care assistant to a significant other at home: No Do you presently have visiting nurse or other home services: No 75 years or older and lives alone: No Alcohol intake: never Patient Tobacco Use Status: Never used Tobacco e-Cigarette/Vaping Use: Never Used service: No Current occupational status: disabled Review of Systems Musc Reports arthralgias, Reports limited range of motion and Reports stiffness Physical Exam Vital Signs: Last Vital Signs Pulse 55 03/10/24 09:18 BP 126/72 03/10/24 09:18 Pulse Ox 100 03/10/24 09:18 Oxygen Delivery Method Room Air 03/10/24 09:18 BMI result Body Mass Index 33.1 Const General: cooperative, healthy appearing and comfortable Nutritional Appearance: obese Orientation/consciousness: patient oriented x3 Limitations: no limitations HEENT Head: Yes normocephalic and Yes atraumatic Mouth: moist mucous membranes Resp Effort & Inspection: normal respiratory effort and able to speak in complete sentences Auscultation: diminished lung sounds diffuse Cardio Rate: regular rate Rhythm: regular rhythm GI Inspection: No distended Palpation (GI): Soft to palpation and nontender Skin General skin exam: no rashes or lesions noted Neuro General: patient oriented x3 Extrem Other: Significantly limited range of motion left shoulder Positive Speed's test and empty can test on the left Swelling, tenderness of left 2nd 3rd and 4th MCPs Left knee crepitus Normal nailfold capillaroscopy Few fibromyalgia tender points Assessment & Plan Assessment & Plan (1) Sjogren syndrome with inflammatory arthritis: Comment: Dry eyes and mouth, +RF, +MARCELLO, +++Ro52 +++Ro60 +++La Recurrent parotid swelling. cystic lung changes consistent with LIP On hydroxychloroquine - Eye exam 02/04. 03/08, 08/08, 09/08, 05/10, 01/2021, 02/2022,02/2023 RTX 1 g X2 doses 02/2023 & 09/2023 Code(s): M35.05 - Sjogren syndrome with inflammatory arthritis Category: Medical Plan: 58-year-old female with Sjogren's disease with interstitial lung disease returns for follow-up. Doing well overall except for mild synovitis affecting her left hand.? She is doing well from respiratory standpoint Continue with hydroxychloroquine 200 mg Twice daily Prednisone taper for active synovitis Plan to repeat rituximab 1 g x 2 doses 03/2024. Will start prior authorization Labs before next visit in 3 months (2) Interstitial lung disease due to collagen vascular disease: Comment: LIP or CLARKE picture on CT - probably related to Sjogren's. 11/3022 CT at the [facility] showing increasing size of the cysts. 02/13/23, 02/27/2023 Ruxience(rituximab) one gram given on each date Code(s): J84.9 - Interstitial pulmonary disease, unspecified; M35.9 - Systemic involvement of connective tissue, unspecified Category: Medical Plan: mostly demonstrated by multiple thin wall cysts.? Repeat CT scanning in June 2023 showed these look to be stable after a dose of rituximab in January and February 2023 (3) Long-term use of hydroxychloroquine: Comment: Eye exam 02/04. 03/08, 08/08, 09/08, 05/10, 01/2021, 02/2022 Code(s): Z79.899 - Other half-way (current) drug therapy Category: Medical Plan: Continue to follow-up regularly with Ophthalmology. She has an appointment 04/2024 (4) Fibromyalgia: Comment: On Savella but stopped due to cost; cymbalta not tolerated Code(s): M79.7 - Fibromyalgia Category: Medical Plan: Continue with gabapentin (5) Internal derangement of left shoulder: Code(s): M24.812 - Other specific joint derangements of left shoulder, not elsewhere classified Category: Medical Plan: Patient received left shoulder injection for presumed subacromial bursitis 12/2023. Was not helpful. Continues to have significant limitation of range of motion of left shoulder. I will order a left shoulder MRI to rule out any internal derangement such as labral or tendon tear. Plan I spent 46 minutes reviewing patient's chart, evaluating patient, ordering diagnostic workup, counseling patient and documenting in the chart Orders: Orders MR shoulder LT wo con Today M24.812 - Other specific joint derangements of left shoulder, not elsewhere classified Comprehensive Met. Panel 3 Months M35.08 - Sjogren syndrome with gastrointestinal involvement C Reactive Protein 3 Months M35.08 - Sjogren syndrome with gastrointestinal involvement Complete Blood Count Auto Diff 3 Months M35.08 - Sjogren syndrome with gastrointestinal involvement Erythrocyte Sedimentation Rate 3 Months M35.08 - Sjogren syndrome with gastroin testinal involvement Medications: New prednisone Take 3 tabs daily for 5 days, 2 tabs daily for 5 days, 1 tab daily for 5 days then stop 30 tabs 0RF Coding Level of Care Code Est Pt Level 5 (57398) Complex EM visit Add On G2211 Diagnoses Sjogren syndrome with inflammatory arthritis M35.05 Interstitial lung disease due to collagen vascular disease J84.9; M35.9 Long-term use of hydroxychloroquine Z79.899 Fibromyalgia M79.7 Internal derangement of left shoulder M24.813
[2024-03-10 09:18] VITALS: BP 126/72; PULSE 55; O2SAT 100; BMI 33.1
== END 2024-03-10 09:55 | disposition home or self-care (01) ==
PROVIDERS: PCP Internal Medicine; Visit Provider Student in an Organized Health Care Education/Training Program
DX: M35.05 Sjogren syndrome with inflammatory arthritis (principal); J84.9 Interstitial pulmonary disease, unspecified; M35.89 Other specified systemic involvement of connective tissue; Z79.899 Other long term (current) drug therapy; M79.7 Fibromyalgia; M24.812 Other specific joint derangements of left shoulder, not elsewhere classified
CPT/HCPCS: 99215; G2211

== ENCOUNTER → 2024-03-10 09:12 | Outpatient (BNVA) | payer MEDICARE, SELFPAY | PROVIDERS: PCP Internal Medicine; Visit Provider Student in an Organized Health Care Education/Training Program | DX: M35.05 Sjogren syndrome with inflammatory arthritis (principal); M35.9 Systemic involvement of connective tissue, unspecified; M79.7 Fibromyalgia; M25.812 Other specified joint disorders, left shoulder; J84.9 Interstitial pulmonary disease, unspecified; Z79.899 Other long term (current) drug therapy | CPT/HCPCS: 99212 ==

== ENCOUNTER 2024-04-22 18:10 | Outpatient (REF) | payer MEDICARE, SELFPAY ==
--- NOTE | ~2024-04-22 | MR_ITS ---
EXAMINATION: MR SHOULDER WITHOUT CONTRAST, LEFT CLINICAL INFORMATION: Shoulder derangement. COMPARISON: None available. TECHNIQUE: MRI of the shoulder without contrast was performed on a high-field scanner. FINDINGS: ROTATOR CUFF: Mild supraspinatus tendinosis. Partial-thickness tear in the distal anterior fibers measuring 0.8 x 0.9 cm (AP x ML). This appears to be involving both the bursal and articular aspect of the tendon. Mild infraspinatus tendinosis. Teres minor is intact. Mild-moderate subscapularis tendinosis. No muscle atrophy or fatty infiltration. BICEPS: Mild proximal biceps tendinosis. CORACOACROMIAL ARCH: The undersurface of the acromion is curved with no subacromial spur. Mild acromioclavicular arthritis. Mild subacromial subdeltoid bursitis. LABRUM/CAPSULE: No definite labral tear is seen. GLENOHUMERAL JOINT/MARROW: Greater tuberosity subcortical degenerative cyst/edema. No acute fracture. No aggressive marrow replacing lesion. Small joint fluid. MR/MR shoulder LT wo con IMPRESSION: 1. Mild supraspinatus tendinosis. 0.8 x 0.9 cm partial-thickness tear anteriorly. 2. Mild infraspinatus tendinosis. Mild-moderate subscapularis tendinosis. 3. Mild proximal biceps tendinosis. 4. Mild acromioclavicular arthritis. Mild subacromial subdeltoid bursitis.
== END 2024-04-22 18:11 | disposition home or self-care (01) ==
LOC: HO.MRI 18:10
PROVIDERS: PCP Internal Medicine; Visit Provider Student in an Organized Health Care Education/Training Program
DX: M24.812 Other specific joint derangements of left shoulder, not elsewhere classified (principal)
CPT/HCPCS: 73221

== ENCOUNTER 2024-05-17 11:26 | Outpatient (AMB) | payer MEDICARE, SELFPAY ==
[2024-05-17 11:29] VITALS: BMI 34.0
--- NOTE | 2024-05-17 11:29 | A.OFFVIS_ITS ---
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 Intake Note: Yanira is a 58 year old female who presents today as a new patient with complaints of left shoulder pain . Patient states she has been experiencing pain for years but it has gotten worse recently. Patient would like a repeat cordisone shot because it helped in the past. Patient had a injection done about few months ago with Dr. Cuellar, she reports she had releif with last injection and would like a repeat. IMPRESSION: 1. Mild supraspinatus tendinosis. 0.8 x 0.9 cm partial-thickness tear anteriorly. 2. Mild infraspinatus tendinosis. Mild-moderate subscapularis tendinosis. 3. Mild proximal biceps tendinosis. 4. Mild acromioclavicular arthritis. Mild subacromial subdeltoid bursitis. 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 Patient states she has been experiencing pain for years but it has gotten worse recently. Patient would like a repeat cordisone shot because it helped in the past. Patient had a injection done about few months ago with Dr. Cuellar, she reports she had relief with last injection and would like a repeat. She has not done physical therapy. She describes pain with overhead motion and at night. COUNT INCLUDES THE [facility] Medical History (Updated 04/26/24 @ 15:23 by Justus Cuellar MD) Cervical spondylosis Lumbar spondylosis Esophageal dysmotility Sjogren's syndrome with gastrointestinal involvement Yawning Hypersomnia Snoring delivery delivered Long-term use of hydroxychloroquine Osteoarthritis cervical spine Fibromyalgia Osteoarthritis of lumbar spine Tendinitis of left rotator cuff Surgical History History of hip surgery H/O elbow surgery H/O toe surgery Family History Mother HTN (hypertension) Osteoarthritis Parkinson disease Diabetes Hypercholesteremia Age related osteoporosis Diverticulitis Father No problems noted. Social History Household Members: Spouse Housing: House Are you a primary primary care pediatrician to a significant other at home: No Do you presently have visiting nurse or other home services: No 75 years or older and lives alone: No Alcohol intake: never Patient Tobacco Use Status: Never used Tobacco e-Cigarette/Vaping Use: Never Used service: No Current occupational status: disabled Physical Exam Vital Signs: BMI result Body Mass Index 34.0 Extrem Other: 35/90/130/L5 +h/n neg ec Office Procedures Joint Injection/Aspiration Joint Injection/Aspiration Details: Injected 1 mL of Decadron and 3 mL 1% lidocaine and 3 mL of 0.25% Marcaine. Site was prepped using aseptic technique. Patient tolerated the procedure well. Primary Site: left shoulder Approach Used: anterolateral Coding 56980 - Large joint Procedure code (CPT) selection complete Results Reviewed Results Reviewed: IMPRESSION: 1. Mild supraspinatus tendinosis. 0.8 x 0.9 cm partial-thickness tear anteriorly. 2. Mild infraspinatus tendinosis. Mild-moderate subscapularis tendinosis. 3. Mild proximal biceps tendinosis. 4. Mild acromioclavicular arthritis. Mild subacromial subdeltoid bursitis. Assessment & Plan Assessment & Plan (1) Incomplete tear of left rotator cuff: Code(s): M75.112 - Incomplete rotator cuff tear or rupture of left shoulder, not specified as traumatic Category: Medical Plan: This is a 58-year-old woman with incomplete tear of left rotator cuff. She has not done physical therapy but has benefitted from injections in the past injected her left shoulder day and do recommend physical therapy. If this is not helpful she can return to see me to discuss further injections and/or more aggressive treatment. (2) Sjogren syndrome with inflammatory arthritis: Comment: Dry eyes and mouth, +RF, +MARCELLO, +++Ro52 +++Ro60 +++La Recurrent parotid swelling. cystic lung changes consistent with LIP On hydroxychloroquine - Eye exam 02/04. 03/08, 08/08, 09/08, 05/10, 01/2021, 02/2022,02/2023 RTX 1 g X2 doses 02/2023 & 09/2023 Code(s): M35.05 - Sjogren syndrome with inflammatory arthritis Category: Medical Plan: Seeing Rheum Coding Level of Care Code New Pt Level 3 (20606) Complex EM visit Add On G2211 Diagnoses Incomplete tear of left rotator cuff M75.112 Sjogren syndrome with inflammatory arthritis M35.05 CPT Codes Coding - 56961 Large joint: 97555 - Large joint ([id number])
== END 2024-05-17 11:56 | disposition home or self-care (01) ==
PROVIDERS: PCP Internal Medicine; Visit Provider Orthopaedic Surgery
DX: M75.112 Incomplete rotator cuff tear or rupture of left shoulder, not specified as traumatic (principal); M35.05 Sjogren syndrome with inflammatory arthritis
CPT/HCPCS: 20610; 99203

== ENCOUNTER → 2024-05-17 11:26 | Outpatient (BNVA) | payer MEDICARE, SELFPAY | PROVIDERS: PCP Internal Medicine; Visit Provider Orthopaedic Surgery | DX: M75.112 Incomplete rotator cuff tear or rupture of left shoulder, not specified as traumatic (principal); M35.05 Sjogren syndrome with inflammatory arthritis | CPT/HCPCS: 20610; 99202; J0665; J1100 ==

== ENCOUNTER 2024-06-09 10:38 | Outpatient (REF) | payer MEDICARE, SELFPAY ==
[2024-06-09 13:08] LABS: MANUAL DIFF FLAG NO
[2024-06-09 13:24] LABS: Eosinophils Absolute Auto 0.1 X10*3/uL (0.0-0.4); Eosinophils Percent Auto 3.7 % (0-4); Hematocrit 34.9 % (37.0-47.0); Hemoglobin 11.9 g/dl (12.0-16.0); Imm Gran Abs Auto 0.01 X10*3/uL (0.00-0.03); Imm Gran Pct Auto 0.3 % (0.0-0.4); Lymphocytes Absolute Auto 0.7 X10*3/uL (1.2-4.9); Lymphocytes Percent Auto 18.6 % (20-40); Mean Corpuscular HGB Conc 34.1 g/dl (31.0-35.0); Mean Corpuscular Hemoglobin 30.1 pg (27.0-33.0); Mean Corpuscular Volume 88.4 fL (80.0-98.0); Mean Platelet Volume 10.3 fL (9.4-12.3); Monocytes Absolute Auto 0.5 X10*3/uL (0.1-1.2); Monocytes Percent Auto 12.6 % (2-11); Neutrophils Absolute Auto 2.4 x10*3/uL (2.0-8.3); Neutrophils Percent Auto 63.8 % (45-73); Platelet Count 252 X10*3/uL (160-400); Red Blood Count 3.95 X10*6/uL (4.20-5.50); Red Cell Distribution Width 11.9 % (11.0-16.0); White Blood Count 3.8 X10*3/uL (4.8-10.8)
[2024-06-09 13:56] LABS: Alanine Aminotransferase 18 U/L (0-31); Albumin Level 4.2 g/dL (3.5-5.0); Alkaline Phosphatase 67 U/L (39-117); Anion Gap 10 (12-20); Aspartate Amino Transferase 18 U/L (5-31); Bilirubin Total 0.4 mg/dL (0.0-1.0); Blood Urea Nitrogen 8 mg/dL (9-16); C Reactive Protein 0.37 mg/dL (< or = 0.50); Calcium 10.1 mg/dL (8.4-10.2); Carbon Dioxide 29 mmol/L (22-29); Chloride 108 mmol/L (96-108); Estimated Glomerular Filt Rate > 60; Glucose Random 99 mg/dL (60-115); Potassium 4.4 mmol/L (3.3-5.1); Sodium 143 mmol/L (135-145); Total Protein 7.5 g/dL (6.5-8.0)
[2024-06-09 14:13] LABS: Erythrocyte Sedimentation Rate 23 MM/HR (0-20)
== END 2024-06-09 10:39 | disposition home or self-care (01) ==
LOC: HO.10HDL 10:38
PROVIDERS: Visit Provider Student in an Organized Health Care Education/Training Program
DX: M35.08 Sjogren syndrome with gastrointestinal involvement (principal)
CPT/HCPCS: 36415; 80053; 85025; 85652; 86140

== ENCOUNTER 2024-06-11 10:43 | Outpatient (AMB) | payer MEDICARE, SELFPAY ==
--- NOTE | 2024-06-11 10:52 | A.OFFVIS_ITS ---
Vital Signs 06/11/24 10:55 Height 5 ft 2 in Weight 186 lb 4.65 oz BMI 34.1 BP 130/80 Blood Pressure Location Rt brachial Position Sitting Pulse 62 Pulse Source Pulse Oximeter Pulse Oximetry (%) 98 Oxygen Delivery Method Room Air Intake Visit Reasons: SS Intake Note: Patient presents for SS. Allergies No Known Allergies Allergy (Verified 06/11/24 10:55) Medication List - Last Reconciled 06/11/24 by Justus Cuellar MD acetaminophen (Tylenol) 650 mg PO Q6H PRN albuterol sulfate 90 mcg/actuation inhalation celecoxib 200 mg PO BID cyclosporine 0.05% (Restasis) 2 drps ophthalmic (eye) TID fluticasone furoate 50 mcg/actuation inhalation DAILY PRN fluticasone furoate 100 mcg/actuation (Arnuity Ellipta) 1 inh inhalation DAILY gabapentin 100 mg PO TID hydroxychloroquine 200 mg PO BID meclizine 12.5 mg PO TID PRN nortriptyline 50 mg PO BEDTIME omeprazole 40 mg PO DAILY rituximab (Rituxan) IV triamcinolone acetonide (Nasacort) 1 spray intranasal DAILY HPI Comments Details: 58-year-old female with Sjogren's complicated by ILD who returns for follow-up. She states that she continues to have left shoulder pain. Continues to have reduced range of motion. Left shoulder injection done last visit was not helpful. She was evaluated by Dr. Faustin and had another injection. She also states that it was not helpful. PT was recommended. She states that she has bilateral ankle pain. Worse on the right. She was evaluated by a data technical lead who recommended surgery. She denies any cough or shortness of breath. No other symptoms. Denies any recent illnesses. Most recent history by Dr. Martinez : The patient returns with her for evaluation of her interstitial lung disease and Sjogren's syndrome. On August 20 she underwent a left total hip replacement at [facility]. That seems to have gone okay. She has been having some home PT and now she has appointments for outpatient PT. There is still some discomfort with range of motion in the hip. There has been no drainage from the wound site. She does have an orthopedic follow-up later this week. She is having a dry cough. She had a COVID infection in early July. The symptoms subsided except for a dry cough. The dry cough has worsened after her surgery. She said the PT is been doing home oximetry and they have not seen any abnormalities. There has been no sputum production, fevers, chills, dyspnea or chest pain. The peripheral joints and muscles are achy as usual from her fibromyalgia but none are swollen. She did talk to Pulmonary and she received a course of prednisone for the cough and that did improve but the dry cough is still present. She is down to 20 mg daily on the prednisone and this is the last day. She does have an albuterol inhaler and Arnuity inhaler. Another inhaler was to replace the Arnuity but the co-payment was high and she has not been able to afford it yet. She remains on hyd roxychloroquine 200 mg b.i.d. She would be due for another rituximab infusion this month for her ILD. She had a chest CT scan in June showing still the presence of thin wall cysts but the overall impression was that it was unchanged from the previous one from last year. [facility] Medical History Cervical spondylosis Lumbar spondylosis Esophageal dysmotility Sjogren's syndrome with gastrointestinal involvement Yawning Hypersomnia Snoring delivery delivered Long-term use of hydroxychloroquine Osteoarthritis cervical spine Fibromyalgia Osteoarthritis of lumbar spine Tendinitis of left rotator cuff Surgical History History of hip surgery H/O elbow surgery H/O toe surgery Family History Mother HTN (hypertension) Osteoarthritis Parkinson disease Diabetes Hypercholesteremia Age related osteoporosis Diverticulitis Father No problems noted. Social History Household Members: Spouse Housing: House Are you a primary daycare manager to a significant other at home: No Do you presently have visiting nurse or other home services: No 75 years or older and lives alone: No Alcohol intake: never Patient Tobacco Use Status: Never used Tobacco e-Cigarette/Vaping Use: Never Used service: No Current occupational status: disabled Review of Systems Const Reports fatigue Card Denies dyspnea Resp Denies cough and Denies dyspnea Musc Reports back pain, Reports arthralgias, Reports limited range of motion and Reports stiffness Endo Reports fatigue Physical Exam Vital Signs: Last Vital Signs Pulse 62 06/11/24 10:55 BP 130/80 06/11/24 10:55 Pulse Ox 98 06/11/24 10:55 Oxygen Delivery Method Room Air 06/11/24 10:55 BMI result Body Mass Index 34.1 Const General: cooperative, healthy appearing and comfortable Nutritional Appearance: obese Orientation/consciousness: patient oriented x3 Limitations: no limitations HEENT Head: Yes normocephalic and Yes atraumatic Mouth: moist mucous membranes Resp Effort & Inspection: normal respiratory effort and able to speak in complete sentences Auscultation: diminished lung sounds diffuse Cardio Rate: regular rate Rhythm: regular rhythm GI Inspection: No distended Palpation (GI): Soft to palpation and nontender Skin General skin exam: no rashes or lesions noted Neuro General: patient oriented x3 Extrem Other: limited range of motion left shoulder Bilateral ankle tenderness with no swelling Left knee crepitus Normal nailfold capillaroscopy Few fibromyalgia tender points Results Reviewed Results Reviewed: PFTs 05/2024 - stable between 11/2024 and 05/2024, but decline since 11/2022 (12% FVC and 8% DLCO). PFTs 11/2023 - decline PFTs 11/2022 - FEV1 115%, FVC 115%, ratio 80%, TLC 105%, DLCO 90%. PFTs 05/2022 - FEV1 110%, FVC 101%, ratio 85%, no BD change, TLC 122%, DLCO 70%. PFTs unchanged from [address] chest 05/2024 Impression: No significant change in numerous cysts throughout the lungs, compatible with LMP given the history of Sjogren's syndrome Assessment & Plan Assessment & Plan (1) Sjogren syndrome with inflammatory arthritis: Comment: Dry eyes and mouth, +RF, +MARCELLO, +++Ro52 +++Ro60 +++La Recurrent parotid swelling. cystic lung changes consistent with LIP On hydroxychloroquine - Eye exam 02/04. 03/08, 08/08, 09/08, 05/10, 01/2021, 02/2022,02/2023 RTX 1 g X2 doses 02/2023 & 09/2023 & 04/2024 Code(s): M35.05 - Sjogren syndrome with inflammatory arthritis Category: Medical Plan: 58-year-old female with Sjogren's disease with interstitial lung disease returns for follow-up. Doing very well overall. She is doing well from respiratory standpoint. Mild reduction in her DLCO Continue with hydroxychloroquine 200 mg Twice daily Clinically patient is overall stable, there has been a mild reduction in her DLCO. Her most recent CT chest is reportedly stable. I called patient's electrical line splicer Dr. Olosn's office and left my cell number for a call back to discuss her treatment Labs before next visit in 3 months. Check CD 19 May consider lowering her rituximab dose or spacing it out (2) Interstitial lung disease due to collagen vascular disease: Comment: LIP or CLARKE picture on CT - probably related to Sjogren's. 11/3022 CT at the [facility] showing increasing size of the cysts. 02/13/23, 02/27/2023 Ruxience(rituximab) one gram given on each date Code(s): J84.9 - Interstitial pulmonary disease, unspecified; M35.9 - Systemic involvement of connective tissue, unspecified Category: Medical Plan: mostly demonstrated by multiple thin wall cysts.? Followed by Dr. Olson at [facility] and [facility] (3) Long-term use of hydroxychloroquine: Comment: Eye exam 02/04. 03/08, 08/08, 09/08, 05/10, 01/2021, 02/2022 Code(s): Z79.899 - Other superintendent container terminal (current) drug therapy Category: Medical Plan: Continue to follow-up regularly with Ophthalmology. (4) Fibromyalgia: Comment: On Savella but stopped due to cost; cymbalta not tolerated Code(s): M79.7 - Fibromyalgia Category: Medical Plan: Continue with gabapentin (5) Internal derangement of left shoulder: Code(s): M24.812 - Other specific joint derangements of left shoulder, not elsewhere classified Category: Medical Plan: A couple of cortisone injections were not helpful. Referred patient to PT (6) Lumbar spondylosis: Code(s): M47.816 - Spondylosis without myelopathy or radiculopathy, lumbar region Category: Medical Plan: Referred to PT Plan I spent 46 minutes reviewing patient's chart, evaluating patient, ordering diagnostic workup, counseling patient and documenting in the chart Orders: Orders Comprehensive Met. Panel 3 Months M35.05 - Sjogren syndrome with inflammatory arthritis PT Evaluation and Treatment Today M47.816 - Spondylosis without myelopathy or radiculopathy, lumbar region, M75.112 - Incomplete rotator cuff tear or rupture of left shoulder, not specified as traumatic Complete Blood Count Auto Diff 3 Months M35.05 - Sjogren syndrome with inflammatory arthritis Erythrocyte Sedimentation Rate 3 Months M35.05 - Sjogren syndrome with inflammatory arthritis Immunofixation Pnl, Serum 3 Months M35.05 - Sjogren syndrome with inflammatory arthritis Protein Electrophoresis, Serum 3 Months M35.05 - Sjogren syndrome with inflammatory arthritis Other Ref Test - Misc 3 Months Z79.620 - skilled nursing (current) use of immunosuppressive biologic Coding Level of Care Code Est Pt Level 5 (85809) Complex EM visit Add On G2211 Diagnoses Sjogren syndrome with inflammatory arthritis M35.05 Interstitial lung disease due to collagen vascular disease J84.9; M35.9 Long-term use of hydroxychloroquine Z79.899 Fibromyalgia M79.7 Internal derangement of left shoulder M24.812 Lumbar spondylosis M47.816
[2024-06-11 10:55] VITALS: BP 130/80; PULSE 62; O2SAT 98; BMI 34.1
== END 2024-06-11 11:17 | disposition home or self-care (01) ==
PROVIDERS: PCP Internal Medicine; Visit Provider Student in an Organized Health Care Education/Training Program
DX: M35.05 Sjogren syndrome with inflammatory arthritis (principal); J84.9 Interstitial pulmonary disease, unspecified; M35.89 Other specified systemic involvement of connective tissue; Z79.899 Other long term (current) drug therapy; M79.7 Fibromyalgia; M24.812 Other specific joint derangements of left shoulder, not elsewhere classified; M47.816 Spondylosis without myelopathy or radiculopathy, lumbar region
CPT/HCPCS: 99215; G2211

== ENCOUNTER → 2024-06-11 10:43 | Outpatient (BNVA) | payer MEDICARE, SELFPAY | PROVIDERS: PCP Internal Medicine; Visit Provider Student in an Organized Health Care Education/Training Program | DX: M35.05 Sjogren syndrome with inflammatory arthritis (principal); M35.9 Systemic involvement of connective tissue, unspecified; M24.812 Other specific joint derangements of left shoulder, not elsewhere classified; M79.7 Fibromyalgia; M47.816 Spondylosis without myelopathy or radiculopathy, lumbar region; J84.9 Interstitial pulmonary disease, unspecified; Z79.899 Other long term (current) drug therapy | CPT/HCPCS: 99212 ==

== ENCOUNTER 2024-09-07 10:27 | Outpatient (REF) | payer MEDICARE, SELFPAY ==
[2024-09-07 10:52] LABS: MANUAL DIFF FLAG NO
[2024-09-07 11:01] LABS: Hematocrit 34.6 % (37.0-47.0); Hemoglobin 11.7 g/dl (12.0-16.0); Mean Corpuscular HGB Conc 33.8 g/dl (31.0-35.0); Mean Corpuscular Volume 88.7 fL (80.0-98.0); Platelet Count 306 X10*3/uL (160-400); Red Cell Distribution Width 12.2 % (11.0-16.0); White Blood Count 3.7 X10*3/uL (4.8-10.8)
[2024-09-07 11:02] LABS: Basophils Percent Auto 0.8 % (0-2); Eosinophils Absolute Auto 0.1 X10*3/uL (0.0-0.4); Eosinophils Percent Auto 3.2 % (0-4); Imm Gran Abs Auto 0.02 X10*3/uL (0.00-0.03); Imm Gran Pct Auto 0.5 % (0.0-0.4); Lymphocytes Absolute Auto 0.7 X10*3/uL (1.2-4.9); Lymphocytes Percent Auto 18.7 % (20-40); Monocytes Absolute Auto 0.4 X10*3/uL (0.1-1.2); Monocytes Percent Auto 10.2 % (2-11); Neutrophils Absolute Auto 2.5 x10*3/uL (2.0-8.3); Neutrophils Percent Auto 66.6 % (45-73)
[2024-09-07 11:39] LABS: Albumin Level 4.1 g/dL (3.5-5.0); Aspartate Amino Transferase 34 U/L (5-31); Bilirubin Total 0.4 mg/dL (0.0-1.0); Blood Urea Nitrogen 13 mg/dL (9-16); Calcium 9.6 mg/dL (8.4-10.2); Carbon Dioxide 28 mmol/L (22-29); Chloride 109 mmol/L (96-108); Estimated Glomerular Filt Rate > 60; Glucose Random 98 mg/dL (60-115); Potassium 4.3 mmol/L (3.3-5.1); Sodium 141 mmol/L (135-145); Total Protein 6.9 g/dL (6.5-8.0)
[2024-09-07 11:45] LABS: Erythrocyte Sedimentation Rate 25 MM/HR (0-20)
[2024-09-07 11:58] LABS: Alkaline Phosphatase 63 U/L (39-117); Anion Gap 8 (12-20)
[2024-09-07 12:45] LABS: Alanine Aminotransferase 32 U/L (0-31)
[2024-09-10 06:44] LABS: Prot Elec - Albumin 4.3 g/dL (3.8-4.8); Prot Elec - Alpha1 0.2 g/dL (0.2-0.3); Prot Elec - Alpha2 0.7 g/dL (0.5-0.9); Prot Elec - Beta 1 0.4 g/dL (0.4-0.6); Prot Elec - Beta 2 0.4 g/dL (0.2-0.5); Prot Elec - Gamma 1.1 g/dL (0.8-1.7); Prot Elec - Total Protein 7.1 g/dL (6.1-8.1)
[2024-09-11 10:43] LABS: IgA 243 mg/dL (47-310); IgG 1313 mg/dL (600-1640); IgM 50 mg/dL (50-300)
== END 2024-09-07 10:28 | disposition home or self-care (01) ==
LOC: HO.10HDL 10:27
PROVIDERS: Visit Provider Student in an Organized Health Care Education/Training Program
DX: M35.05 Sjogren syndrome with inflammatory arthritis (principal); Z79.620 Long term (current) use of immunosuppressive biologic
CPT/HCPCS: 80053; 82784; 84165; 85025; 85652; 86334

== ENCOUNTER → 2024-09-13 09:06 | Outpatient (BNVA) | payer MEDICARE, MEDICAID, SELFPAY | PROVIDERS: PCP Internal Medicine; Visit Provider Student in an Organized Health Care Education/Training Program | DX: M35.05 Sjogren syndrome with inflammatory arthritis (principal); M35.9 Systemic involvement of connective tissue, unspecified; M79.7 Fibromyalgia; J84.9 Interstitial pulmonary disease, unspecified; Z79.899 Other long term (current) drug therapy; M24.812 Other specific joint derangements of left shoulder, not elsewhere classified; R74.01 Elevation of levels of liver transaminase levels; Z71.85 Encounter for immunization safety counseling | CPT/HCPCS: 99212 ==

== ENCOUNTER 2024-09-13 09:09 | Outpatient (AMB) | payer MEDICARE, MEDICAID, SELFPAY ==
--- NOTE | 2024-09-13 09:12 | A.OFFVIS_ITS ---
Vital Signs 09/13/24 09:14 Height 5 ft 2 in Weight 189 lb 9.561 oz BMI 34.7 BP 130/72 Blood Pressure Location Lt brachial Position Sitting Respiration 18 Pulse 74 Pulse Source Pulse Oximeter Pulse Oximetry (%) 97 Oxygen Delivery Method Room Air Intake Visit Reasons: Sjogren's Intake Note: Patient presents for Sjogre's. Allergies No Known Allergies Allergy (Verified 09/13/24 09:14) Medication List - Last Reconciled 09/13/24 by Justus Cuellar MD acetaminophen (Tylenol) 650 mg PO Q6H PRN albuterol sulfate 90 mcg/actuation inhalation celecoxib 200 mg PO BID cyclosporine 0.05% (Restasis) 2 drps ophthalmic (eye) TID fluticasone furoate 50 mcg/actuation inhalation DAILY PRN fluticasone furoate 100 mcg/actuation (Arnuity Ellipta) 1 inh inhalation DAILY gabapentin 100 mg PO TID hydroxychloroquine 200 mg PO BID meclizine 12.5 mg PO TID PRN nortriptyline 50 mg PO BEDTIME omeprazole 40 mg PO DAILY rituximab (Rituxan) IV triamcinolone acetonide (Nasacort) 1 spray intranasal DAILY HPI Comments Details: 58-year-old female with Sjogren's complicated by ILD who returns for follow-up. She states that she has been more fatigued recently. With regards to her left shoulder rotator cuff tendinopathy she was contacted by her insurance company and advised to do video instructed home exercises. She states that it provides some relief. She denies any new shortness of breath. Most recent history by Dr. Martinez : The patient returns with her for evaluation of her interstitial lung disease and Sjogren's syndrome. On August 20 she underwent a left total hip replacement at [facility]. That seems to have gone okay. She has been having some home PT and now she has appointments for outpatient PT. There is still some discomfort with range of motion in the hip. There has been no drainage from the wound site. She does have an orthopedic follow-up later this week. She is having a dry cough. She had a COVID infection in early July. The symptoms subsided except for a dry cough. The dry cough has worsened after her surgery. She said the PT is been doing home oximetry and they have not seen any abnormalities. There has been no sputum production, fevers, chills, dyspnea or chest pain. The peripheral joints and muscles are achy as usual from her fibromyalgia but none are swollen. She did talk to Pulmonary and she received a course of prednisone for the cough and that did improve but the dry cough is still present. She is down to 20 mg daily on the prednisone and this is the last day. She does have an albuterol inhaler and Arnuity inhaler. Another inhaler was to replace the Arnuity but the co-payment was high and she has not been able to afford it yet. She remains on hydroxychloroquine 200 mg b.i.d. She would be due for another rituximab infusion this month for her ILD. She had a chest CT scan in June showing still the presence of thin wall cysts but the overall impression was that it was unchanged from the previous one from last year. [facility] Medical History Cervical spondylosis Lumbar spondylosis Esophageal dysmotility Sjogren's syndrome with gastrointestinal involvement Yawning Hypersomnia Snoring delivery delivered Long-term use of hydroxychloroquine Osteoarthritis cervical spine Fibromyalgia Osteoarthritis of lumbar spine Tendinitis of left rotator cuff Surgical History History of hip surgery H/O elbow surgery H/O toe surgery Family History Mother HTN (hypertension) Osteoarthritis Parkinson disease Diabetes Hypercholesteremia Age related osteoporosis Diverticulitis Father No problems noted. Social History Household Members: Spouse Housing: House Are you a primary managed care liaison to a significant other at home: No Do you presently have visiting nurse or other home services: No 75 years or older and lives alone: No Alcohol intake: never Patient Tobacco Use Status: Never used Tobacco e-Cigarette/Vaping Use: Never Used service: No Current occupational status: disabled Review of Systems Const Reports fatigue Card Denies dyspnea Resp Denies cough and Denies dyspnea Musc Reports back pain, Reports arthralgias, Reports limited range of motion and Reports stiffness Endo Reports fatigue Physical Exam Vital Signs: Last Vital Signs Pulse 74 09/13/24 09:14 Resp 18 09/13/24 09:14 BP 130/72 09/13/24 09:14 Pulse Ox 97 09/13/24 09:14 Oxygen Delivery Method Room Air 09/13/24 09:14 BMI result Body Mass Index 34.7 Const General: cooperative, healthy appearing and comfortable Nutritional Appearance: obese Orientation/consciousness: patient oriented x3 Limitations: no limitations HEENT Head: Yes normocephalic and Yes atraumatic Mouth: moist mucous membranes Resp Effort & Inspection: normal respiratory effort and able to speak in complete sentences Auscultation: diminished lung sounds diffuse Cardio Rate: regular rate Rhythm: regular rhythm GI Inspection: No distended Palpation (GI): Soft to palpation and nontender Skin General skin exam: no rashes or lesions noted Neuro General: patient oriented x3 Extrem Other: limited range of motion left shoulder Bilateral ankle tenderness with no swelling Left knee crepitus Normal nailfold capillaroscopy Few fibromyalgia tender points Assessment & Plan Assessment & Plan (1) Sjogren syndrome with inflammatory arthritis: Comment: Dry eyes and mouth, +RF, +MARCELLO, +++Ro52 +++Ro60 +++La Recurrent parotid swelling. cystic lung changes consistent with LIP On hydroxychloroquine - Eye exam 02/04. 03/08, 08/08, 09/08, 05/10, 01/2021, 02/2022,02/2023 RTX 1 g X2 doses 02/2023 & 09/2023 & 04/2024 Code(s): M35.05 - Sjogren syndrome with inflammatory arthritis Category: Medical Plan: 58-year-old female with Sjogren's disease with interstitial lung disease returns for follow-up. Doing very well overall. She is doing well from respiratory standpoint. Continue with hydroxychloroquine 200 mg Twice daily Clinically patient is overall stable, there has been a mild reduction in her DLCO. Her most recent CT chest 05/2024 is stable. I reviewed notes from patient's cook ice cream, was suggested to check CD 19 before the next rituximab dose consider spacing rituximab out, check CD 19 10/2024 and decide on subsequent doses of rituximab at that time. Labs before next visit in 2 months (2) Interstitial lung disease due to collagen vascular disease: Comment: LIP or CLARKE picture on CT - probably related to Sjogren's. 11/3022 CT at the [facility] showing increasing size of the cysts Code(s): J84.9 - Interstitial pulmonary disease, unspecified; M35.9 - Systemic involvement of connective tissue, unspecified Category: Medical Plan: mostly demonstrated by multiple thin wall cysts.? Followed by Dr. Olson at [facility] (3) Long-term use of hydroxychloroquine: Comment: Eye exam 02/04. 03/08, 08/08, 09/08, 05/10, 01/2021, 02/2022 Code(s): Z79.899 - Other fdc (current) drug therapy Category: Medical Plan: Per patient she was evaluated by her engraver copperplate back in April and will be going back in10/2024. Continue to follow-up regularly with Ophthalmology. (4) Fibromyalgia: Comment: On Savella but stopped due to cost; cymbalta not tolerated Code(s): M79.7 - Fibromyalgia Category: Medical Plan: Currently patient takes gabapentin 100 mg Twice daily, advised patient to take 200 mg at night and 100 mg in the day We had a discussion of fibromyalgia today Discussed management of fibromyalgia with patient. Is a noninflammatory, non-autoimmune central afferent processing disorder leading to a diffuse pain syndrome. I suggested that patient try to address her underlying psychiatric issues, anxiety/depression. I suggested evaluation by a therapist and/or a psychiatrist. Per patient she had a sleep study in the past and it was negative for sleep apnea.. Try to follow sleep hygiene practices. Patient would benefit from increased physical activity, either through formal physical therapy or by joining a gym. Advised patient that she should start activity slowly and increase as tolerated. Consider low-impact exercises such as walking, swimming, aqua therapy stretching, yoga. I provided patient with a booklet on the management of fibromyalgia (5) Internal derangement of left shoulder: Code(s): M24.812 - Other specific joint derangements of left shoulder, not elsewhere classified Category: Medical Plan: A couple of cortisone injections were not helpful. Was evaluated by Orthopedics and advised to do PT. She has been doing some home PT with some improvement. (6) Immunization counseling: Code(s): Z71.85 - Encounter for immunization safety counseling Category: Medical Plan: Advised patient to get her COVID vaccine and flu vaccine states the end of September (7) Transaminitis: Code(s): R74.01 - Elevation of levels of liver transaminase levels Category: Medical Plan: Unclear cause, patient denies alcohol use, no recent illnesses or infections. Will check an ultrasound of the abdomen Plan I spent 46 minutes reviewing patient's chart, evaluating patient, ordering diagnostic workup, counseling patient and documenting in the chart Orders: Orders US abdomen comp w elastography Today R74.01 - Elevation of levels of liver transaminase levels Complete Blood Count Auto Diff 2 Months M35.05 - Sjogren syndrome with inflammatory arthritis Comprehensive Met. Panel 2 Months M35.05 - Sjogren syndrome with inflammatory arthritis Other Ref Test - Misc 2 Months Z79.620 - [facility] (current) use of immunosuppressive biologic C Reactive Protein 2 Months M35.05 - Sjogren syndrome with inflammatory arthritis Erythrocyte Sedimentation Rate 2 Months M35.05 - Sjogren syndrome with inflammatory arthritis Coding Level of Care Code Est Pt Level 5 (33892) Complex EM visit Add On G2211 Diagnoses Sjogren syndrome with inflammatory arthritis M35.05 Interstitial lung disease due to collagen vascular disease J84.9; M35.9 Long-term use of hydroxychloroquine Z79.899 Fibromyalgia M79.7 Internal derangement of left shoulder M24.812 Immunization counseling Z71.85 Transaminitis R74.01
[2024-09-13 09:14] VITALS: BP 130/72; PULSE 74; RESP 18; O2SAT 97; BMI 34.7
== END 2024-09-13 09:56 | disposition home or self-care (01) ==
PROVIDERS: PCP Internal Medicine; Visit Provider Student in an Organized Health Care Education/Training Program
DX: J84.9 Interstitial pulmonary disease, unspecified (principal); M35.05 Sjogren syndrome with inflammatory arthritis; M35.89 Other specified systemic involvement of connective tissue; Z79.899 Other long term (current) drug therapy
CPT/HCPCS: 99215; G2211

== ENCOUNTER 2024-10-05 08:09 | Outpatient (REF) | payer MEDICARE, MEDICAID, SELFPAY ==
--- NOTE | ~2024-10-05 | US_ITS ---
EXAMINATION: US ABDOMEN COMPLETE WITH LIVER ELASTOGRAPHY HISTORY: R74.01 - Elevation of levels of liver transaminase levels TECHNIQUE: Real-time grayscale ultrasound imaging of the abdomen was performed and images were reviewed. COMPARISON: There are no prior studies for comparison. FINDINGS: Liver: The liver is minimally enlarged, and demonstrates increased echotexture, consistent with steatosis. No focal mass or intrahepatic biliary ductal dilatation is identified. There is normal hepatopedal flow in the portal vein. Ultrasound elastography of the liver was performed with 10 separate measurements of the liver parenchyma with the patient in the supine position. Measurements were obtained approximately 2 cm below Alberto's capsule and perpendicular to the capsule. Images are of satisfactory quality. The median shear wave velocity is 1.15 m/s. The interquartile range/median (IQR/median) is 0.09. Gallbladder and biliary tree: The gallbladder is unremarkable, without evidence of calculi, wall thickening, or pericholecystic fluid. There is no sonographic Hernandez sign. The common bile duct is normal in caliber measuring 3 mm. Kidneys: The right kidney measures 10.4 cm in length. The left kidney measures 10.9 cm in length. The kidneys are unremarkable, without evidence of masses, hydronephrosis, or calculi. Pancreas: The pancreatic head, neck, and body are unremarkable. The pancreatic tail is obscured by bowel gas. Spleen: The spleen is normal in size and contour, measuring 9.5 cm in length. Abdominal aorta and inferior vena cava: The visualized portions of the abdominal aorta and inferior vena cava are normal in caliber. There is no free fluid in the abdomen. US/US abdomen comp w elastography IMPRESSION: Mild hepatomegaly and steatosis. The median shear wave velocity is 1.15 m/s, corresponding to a median liver stiffness of 3.92 kPa. The IQR/median value is 0.09. This is indicative of a quality data set. Findings are indicative of a normal elastography value with a low likelihood of severe fibrosis or cirrhosis. REFERENCE: Society of Radiologists in Ultrasound Liver Stiffness Thresholds (2019): LIVER STIFFNESS THRESHOLDS: *Shear wave velocity less than 1.3 m/s (Liver Stiffness equal or less than 5 kPa): High probability of being normal. *Shear wave velocity less than 1.7 m/s (Liver Stiffness less than 9 kPa): In the absence of other known clinical signs, rules out compensated advanced chronic liver disease. *Shear wave velocity between 1.7-2.1 m/s (Liver Stiffness 9-13 kPa): Suggestive of compensated advanced chronic liver disease but need further test for confirmation. *Shear wave velocity between 2.1-2.4 m/s (Liver Stiffness 13-17 kPa): Rules in compensated advanced chronic liver disease. *Shear wave velocity greater than 2.4 m/s (Liver Stiffness over 17 kPa): Suggestive of clinically significant portal hypertension. QUALITY OF DATA SET: *IQR/Median value equal or less than 0.15 implies a quality data set. *IQR/Median value over 0.15 implies a poor quality data set. SIGNIFICANT CHANGE FROM PRIOR EXAM: Significant change if liver stiffness measurement is 10% or greater from prior exam. OTHER CONSIDERATIONS: The stage of liver fibrosis may be overestimated in the setting of acute hepatitis, liver inflammation, elevated liver function tests, hepatic vascular congestion, obstructive cholestasis, non-fasting state, and infiltrative diseases such as amyloidosis and lymphoma. In some patients with NAFLD, the liver stiffness thresholds for compensated advanced chronic liver disease may be lower. In causes other than viral hepatitis and NAFLD, liver stiffness thresholds are not well established. Electronically signed by: Sameer Solomon MD 10/06/2024 08:34 AM [facility]
== END 2024-10-05 08:10 | disposition home or self-care (01) ==
LOC: HO.US 08:09
PROVIDERS: PCP Internal Medicine; Visit Provider Student in an Organized Health Care Education/Training Program
DX: R74.01 Elevation of levels of liver transaminase levels (principal)
CPT/HCPCS: 76700; 76981

== ENCOUNTER → 2024-10-05 08:10 | Outpatient (BNV) | payer MEDICARE, MEDICAID, SELFPAY | PROVIDERS: PCP Internal Medicine; Visit Provider Radiology Diagnostic Radiology | DX: R74.01 Elevation of levels of liver transaminase levels (principal) | CPT/HCPCS: 76700 ==

== ENCOUNTER 2024-11-03 09:24 | Outpatient (REF) | payer MEDICARE, MEDICAID, SELFPAY ==
[2024-11-03 09:38] LABS: MANUAL DIFF FLAG NO
--- OUTSIDE RECORDS SUMMARY | 2024-11-03 10:37 | XMS_ITS | Encounter Summary ---
Author Organization [facility] Address [address] [place] [address] Care Team Providers Care Pigment Presser Name Role Phone Pola Motta MD Primary Care Provider [phone] Reason for Visit * Reason Onset Date Comments Referral 10/19/2024 Encounter Details Date Type Department Care Team (Late st Contact Info) Description 10/19/2024 Telephone Internal Medicine - [address] [phone] Pola Motta MD [address] [place] [id number] Referral Social History Tobacco Use Types Packs/Day Years Used Date Smoking Tobacco: Never Smokeless Tobacco: Never Alcohol Use Standard Drinks/Week Comments No 0 (1 standard drink = 0.6 oz pur e alcohol) Comments No Sex and Gender Information Value Date Recorded Sex Assigned at Not on file Legal Sex Female 3:09 PM EST Gender Identity Not on file Sexual Orientation Not on file documented as of this encounter Progress Notes * Yovani Romero - 2024 2:12 PM EST Patient is calling again to schedule a New Patient appointment. * Triny Cueto - 10/19/2024 4:37 PM EST The patient called she would like to check on her referral from 09/21/24. Please call her back at [phone]. documented in this encounter Plan of Treatment Upcoming Encounters Date Type Department Care Team (Late st Contact Info) Description 12/27/2024 9:00 AM EDT Nutrition Bariatric Surgery - [place] [address] [phone] Samina Miller, RD [address] [phone] 12/31/2024 3:30 PM EDT Office Visit Gastroenterology - [place] [address] [phone] Juliana Flores MD [address] [address] 01/05/2025 8:30 AM EDT Appointment [facility] Endoscopy [address] [place] [phone] Juliana Flores MD [address] [address] 01/11/2025 9:45 AM EDT Office Visit Pulmonolgy - [place] [address] [phone] Herman Barbosa MD [address] [address] documented as of this encounter Visit Diagnoses Not on filedocumented in this encounter Care Teams Pigment Presser Relationship Specialty Start Date End Date Pola Motta MD [address] [place] [phone] PCP - General Internal Medicine 07/28/24 documented as of this encounter
--- OUTSIDE RECORDS SUMMARY | 2024-11-03 10:37 | XMS_ITS | Encounter Summary ---
Author Organization [facility] Address [address] [place] [address] Care Team Providers Care Tool Drawing Checker Name Role Phone Pola Motta MD Primary Care Provider [phone] Reason for Visit * Reason Comments Follow-up 2 month Encounter Details Date Type Department Care Team ([facility] st Contact Info) Description 11/03/2024 8:45 AM EST Office Visit Bariatric Surgery - [place] 175 [facility] [address] [place] [address] Consuelo Hernandez PA [address] [facility] [place] [address] [place] [address] Class 1 obesity due to excess calories with serious comorbidity and body mass index (BMI) of 34.0 to 34.9 in adult (Primary Dx) Social History Tobacco Use Types Packs/Day Years [...] on file documented as of this encounter Last Filed Vital Signs Vital Sign Reading Time Taken Comments Blood Pressure 156/77 11/03/2024 8:46 AM EST Pulse 70 11/03/2024 8:46 AM EST Temperature - - Respiratory Rate - - Oxygen Saturation - - Inhaled Oxygen Concentration - - Weight 85.5 kg (188 lb 6.4 oz) 11/03/2024 8:46 A M EST Height 157.5 cm (5' 2 ) 11/03/2024 8:46 AM EST Body Mass Index 34.46 11/03/2024 8:46 AM EST documented in this encounter Progress Notes * DINESH Thomas - 11/03/2024 8:45 AM EST Yanira Willis is a 59 y.o. year old female who presents for follow up regarding obesity. HPI: Yanira Willis is being followed for medical weight management Her initial consult was on 08/03/2024 At that time recommendation was to start the patient on Zepbound There is an appeal pending through her insurance Her weight remains stable since her initial consult She has started meeting with our dietitian and continues to make lifestyle improvements on her own Otherwise no changes Interested in: Medication, specifically GLP-1 Goals of Program: Would like to lose 50 pounds Referred by: PCP Has tried [id number] weight loss medication in the past Has also tried herbal life years ago None of these were sustainable PMHx: Fibromyalgia Pulmonary cysts-LI P syndrome GERD Esophageal dysmotility Sjogren syndrome Fatty liver Medications: Albuterol Celebrex Flexeril Fluticasone Gabapentin Plaquenil Antivert Nortriptyline Prilosec Nasacort 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 ROS: GENERAL: No malaise, significant unintentional weight loss, fever, chills or night sweats. RESPIRATORY: No cough, wheezing or shortness of breath CARDIOVASCULAR: No chest pain, leg swelling or palpitations. GI: No abdominal discomfort, nausea, vomiting, or change in bowel habits. : No dysuria, frequency or incontinence. SKIN: No lesions, rash or itching. HEMATOLOGY/LYMPHOLOGY No prolonged bleeding, easy bruisability or swollen nodes. MUSCULOSKELETAL: No abnormalities. NEURO: No abnormalities. The remainder of the review of systems is noncontributory PAST MEDICAL HISTORY: Patient Active Problem List Diagnosis Abnormal CT of the chest Cataract DDD (degenerative disc disease), cervical Esophageal dysmotility Fatty liver Fibromyalgia Headache Gastroesophageal reflux disease without esophagitis Multiple idiopathic pulmonary cysts Obesity Osteoarthritis of left hip Osteoarthritis of lumbar spine Renal cyst Shortness of breath Sicca syndrome (CMS/HCC) Sjogren syndrome with gastrointestinal involvement (CMS/HCC) Upper airway cough syndrome Upper esophageal web Vaginal dryness Vertigo COVID DJD (degenerative joint disease), lumbosacral PAST SURGICAL HISTORY: Past Surgical History: Procedure Laterality Date SECTION PROCEDURE: UT DELIVERY ONLY COLONOSCOPY 04/12/2010 PROCEDURE: HISTORICAL COLONOSCOPY; COMMENT: Normal COLONOSCOPY 2014 PROCEDURE: HISTORICAL COLONOSCOPY; COMMENT: normal ELBOW SURGERY Left 01/2019 PROCEDURE: HISTORICAL ELBOW SURGERY; COMMENT: for lateral epicondylitis ESOPHAGOGASTRODUODENOSCOPY 2003 PROCEDURE: UT ESOPHAGOGASTRODUODENOSCOPY TRANSORAL DIAGNOSTIC; COMMENT: cervical esophageal web, dilated to 48 Bahraini OTHER SURGICAL HISTORY 12/01/07 PROCEDURE: UT EGD DILATION GASTRIC/DUODENAL STRICTURE; COMMENT: cervical esophageal web, dilated to48 [place] OTHER SURGICAL HISTORY 12/14/14 PROCEDURE: UT EGD INSERT GUIDE WIRE DILATOR PASSAGE ESOPHAGUS; COMMENT: normal esophagus, dilated to 54 F; mild gastritis without H. pylori; mild duodenitis TUBAL LIGATION 1993 PROCEDURE: HISTORICAL TUBAL LIGATION SOCIAL HISTORY: Social History Tobacco Use Smoking status: Never Smokeless tobacco: Never Substance Use Topics Alcohol use: No FAMILY HISTORY: Family History Problem Relation Name Age of Onset Breast cancer Aunt 75.00 maternal Heart attack Father Diabetes Father Hypertension Father Hyperlipidemia Father Other cancer Father angiosarcoma liver Diabetes Mother Hypertension Mother Hyperlipidemia Mother Colon polyps Mother 55.00 dx in her 50's Hyperlipidemia Brother Other (Other: tumor) Father's side 3 cousins ?lymphoma Colon cancer Neg Hx Ovarian cancer Neg Hx Family Status Relation Name Status Aunt Alive Father (Not Specified) Mother (Not Specified) Brother (Not Specified) Father's nasra (Not Specified) Neg Hx (Not Specified) No partnership data on file MEDICATIONS: There are no discontinued medications. ACTIVE MEDICATIONS: No outpatient medications have been marked as taking for the 11/03/24 encounter (Office Visit) with DINESH Thomas. ALLERGIES: No Known Allergies PHYSICAL EXAM: Visit Vitals BP (!) 156/77 Pulse 70 Ht 1.575 m (62 ) Wt 85.5 kg (188 lb 6.4 oz) BMI 34.46 kg/m?? OB Status Postmenopausal Smoking Status Never BSA 1.86 m?? APPEARANCE: Alert and in no acute distress EYES: Conjunctiva normal and sclera normal and anicteric. LUNG: Chest no retractions. ABDOMEN: Soft, non-tender, without organomegaly or palpable masses. EXTREMITIES: Extremities warm and well perfused without clubbing, cyanosis, or edema. SKIN: Skin color and texture normal. No rashes or lesions. ASSESSMENT: 1. Class 1 obesity due to excess calories with serious comorbidity and body mass index (BMI) of 34.0 to 34.9 in adult PLAN: 1. Obesity - Stable; Await appeal Continue to meet with dietitian Follow-up once she has started the medication Medication and lab orders: No orders of the defined types were placed in this encounter. Other orders: None cc: Pola Motta MD documented in this encounter Plan of Treatment Upcoming Encounters Date Type Department Care Team (Late st Contact Info) Description 12/27/2024 9:00 AM EDT Nutrition Bariatric Surgery - [place] [address] [phone] Samina Miller, RD [address] [phone] 12/31/2024 3:30 PM EDT Office Visit Gastroenterology - [place] [address] [phone] Juliana Flores MD [address] [address] 01/05/2025 8:[address] [facility] Endoscopy [address] [place] [phone] Juliana Flores MD [address] [address] 01/11/2025 9:45 AM EDT Office Visit Pulmonolgy - [place] [address] [phone] Herman Barbosa MD [address] [address] documented as of this encounter Visit Diagnoses Diagnosis Class 1 obesity due to excess calories with serious comorbidity and body mass index (BMI) of 34.0 to 34.9 in adult- Primary documented in this encounter Care Teams Tool Drawing Checker Relationship Specialty Start Date End Date Pola Motta MD [address] [place] [address] PCP - General Internal Medicine 07/28/24 documented as of this encounter
--- OUTSIDE RECORDS SUMMARY | 2024-11-03 10:37 | XMS_ITS | Clinical Summary ---
Author Organization 175 [facility] Address [address] [place] [phone] Phone Care Team Providers Care Therapeutic Program Worker Name Role Phone Pola Motta MD Primary Care Provider [phone] Allergies No known active allergies Medications fluticasone furoate (Arnuity Ellipta) 100 mcg/actuation blister with device inhaler 08/30/20 21 Active gabapentin (NEURONTIN) 100 mg capsule Take 1 Capsule twice a day and 1 Capsule at night 10/21/19 24 Active hydroxychloroquin e (PLAQUENIL) 200 mg tablet Take 1 tablet by mouth 2 times daily. 05/21/20 21 Active meclizine (ANTIVERT) 12.5 mg tablet Take 1 Tablet by mouth 3 times daily as needed (dizziness). 10/21/19 24 Active nortriptyline (PAMELOR) 50 mg capsule Take 10 mg by mouth at bedtime. 10/21/19 24 Active triamcinolone (NASACORT) 55 mcg nasal inhaler 55 mcg by Nasal route daily for 30 days. 11/25/19 19 Active fluticasone furoate (Arnuity Ellipta) 50 mcg/actuation blister with device inhaler Inhale into the lungs. Active cycloSPORINE (Restasis MultiDose) 0.05 % drops 2dropus OU tid 08/07/20 07 Active estradioL (VAGIFEM) 10 mcg tablet vaginal tablet 01/02/20 24 Active cyclobenzaprine (FLEXERIL) 10 mg tablet Take 0.5-1 Tablets by mouth 2 times daily as needed for Muscle spasms. Medication may cause drowsiness, do not drive/operate machinery while taking 10/11/19 22 Active acetaminophen (TYLENOL) 325 mg tablet Take 650 mg by mouth every 6 hours as needed for Pain. Active albuterol HFA (PROVENTIL HFA;VENTOLIN HFA) 108 (90 Base) MCG/ACT inhaler Inhale 2 Puffs into the lungs every 6 hours as needed for Wheezing or Shortness of Breath for up to 90 days. This is a Rescue Medication; not exceed 12 inhalations/2 4 hrs. Active amoxicillin (AMOXIL) 500 mg capsule Take 1 capsule (500 mg total) by mouth every 8 (eight) hours. 12/11/19 24 Active tirzepatide, weight loss, (Zepbound) 2.5 mg/0.5 mL solution Inject 2.5 mg under the skin every 7 (seven) days. 2 mL 08/05/20 24 Active melatonin 3 mg tablet Take 5 mg by mouth at bedtime. Active APPLE CIDER VINEGAR ORAL Take by mouth. Active magnesium citrate 100 mg gummy chewable tablet Take 2 tablets (200 mg total) by mouth. Active celecoxib (CeleBREX) 200 mg capsuleIndication s:Unilateral osteoarthritis resulting from hip dysplasia, left hip TAKE 1 CAPSULE BY MOUTH TWICE A DAY 180 capsule 1 10/04/19 25 Active omeprazole (PriLOSEC) [address] capsule TAKE 1 CAPSULE BY MOUTH EVERY DAY 90 capsule 1 10/18/19 25 Active omeprazole (PriLOSEC) [address] capsule Take 1 Capsule by mouth daily. 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 Abnormal CT of the chest 04/12/2019 Overview (06/24/2024): 01/08 -multiple, thin-walled cysts in the lungs. 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 related to SLE/Sjogren's Headache 12/31/2018 Shortness of breath 11/24/2018 Upper airway cough syndrome 11/24/2018 Vaginal dryness 09/23/2017 DDD (degenerative disc disease), cervical 2016 Vertigo 11/14/2015 Fibromyalgia 12/29/2012 Overview (06/24/2024): On Savella but stopped due to cost; cymbalta not tolerated Cataract 02/27/2011 Overview (06/24/2024): bilateral Obesity 01/19/2009 Osteoarthritis of lumbar spine 01/08/2008 Upper esophageal web 11/04/2007 Overview (06/24/2024): Dilated X 2 Osteoarthritis of left hip 09/10/2006 Overview (06/24/2024): Left due to hip dysplasia; considering THR 2011 Sicca syndrome 09/10/2006 Overview (06/24/2024): Dry eyes and mouth, +RF, +MARCELLO, +Sjogren's antibodies Recurrent parotid swelling.On hydroxychloroquine Eye exam 02/04. 03/08, 08/08, 09/08, 05/10, 01/2021 Resolved Problems Problem Noted Date Diagnosed Date Resolved Date Lumbosacral spondylosis without myelopathy 09/10/2006 06/24/2024 Encounters Date Type Department Care Team Description 11/03/2024 8:45 AM EST Office Visit Bariatric Surgery [address] [phone] Consuelo Hernandez PA Class 1 obesity due to excess calories with serious comorbidity and body mass index (BMI) of 34.0 to 34.9 in adult (Primary Dx) 10/19/2024 Telephone Internal Medicine - [facility] [address] [place] [address] Pola Motta MD Referral 09/27/2024 9:00 AM EST Nutrition Bariatric Surgery [address] [phone] Class 1 obesity without serious comorbidity with body mass index (BMI) of 34.0 to 34.9 in adult, unspecified obesity type (Primary Dx) 09/21/2024 3:30 PM EST Office Visit Internal Medicine - [address] [phone] Pola Motta MD Adult general medical examination (Primary Dx); Screening for deficiency anemia; Screening for hyperlipidemia; Screening for diabetes mellitus; Screening for thyroid disorder; Sjogren syndrome with gastrointestinal involvement (CMS/HCC); Elevated liver function tests; Family history of cardiac disorder 08/16/2024 Telephone Internal Medicine [address] [phone] Pola Motta MD Hypertension 08/04/2024 1:00 PM EST Office Visit Internal Medicine [address] [phone] Pola Motta MD Sjogren syndrome with gastrointestinal involvement (CMS/HCC) (Primary Dx); Primary hypertension; Rash 08/04/2024 Telephone Internal Medicine [address] [phone] Pola Motta MD Referral 08/03/2024 9:30 AM EST Consult Bariatric Surgery - [address] [place] [address] Consuelo Hernandez PA Class 1 obesity due to excess calories with serious comorbidity and body mass index (BMI) of 34.0 to 34.9 in adult (Primary Dx); Fatty liver from Last 3 Months Immunizations Name Administration Dates Next Due Influenza Quadravalent, MDCK , 0.5ml, preservative free (Flucelvax) 6mo and older 07/04/2022,08/28/2021,06/09/2020,07/20 Influenza trivalent, with pr eservative (Fluzone; Afluria) 6mo and older 08/11/2014,08/05/2013,07/07/2012,08/07,08/05/2007 gDecide SARS-CoV-2 COVID-19, mRNA, LNP-S, preservative free 08/21/2021,01/16/2021,12/21/2020 Pneumococcal polysaccharide 23 valent (Pneumovax 23) 2yo and older 02/12/2023 Td Tetanus diptheria (Tdvax) 7yo and older 11/29/2019 Tdap Tetanus diptheria acell ular pertussis (Boostrix; Adacel) 7yo and older 01/19/2009 Zoster Live 12/26/2021,10/11/2021 Surgical History Surgery Date Site/Laterality Comments SECTION PROCEDURE: MI DELIVERY ONLY COLONOSCOPY 04/12/2010 PROCEDURE: HISTORICAL COLONOSCOPY; COMMENT: Normal TUBAL LIGATION 1993 PROCEDURE: HISTORICAL TUBAL LIGATION ESOPHAGOGASTRODUODENOSCOPY 2003 PROCEDURE: MI ESOPHAGOGASTRODUODENOSCOPY TRANSORAL DIAGNOSTIC; COMMENT: cervical esophageal web, dilated to 48 Cameroonian OTHER SURGICAL HISTORY 12/01/07 PROCEDURE: MI EGD DILATION GASTRIC/DUODENAL STRICTURE; COMMENT: cervical esophageal web, dilated to 48 Cameroonian OTHER SURGICAL HISTORY 12/14/14 PROCEDURE: MI EGD INSERT GUIDE WIRE DILATOR PASSAGE ESOPHAGUS; COMMENT: normal esophagus, dilated to 55 F; mild gastritis without H. pylori; mild duodenitis COLONOSCOPY 2014 PROCEDURE: HISTORICAL COLONOSCOPY; COMMENT: normal ELBOW SURGERY 01/2019 Left PROCEDURE: HISTORICAL ELBOW SURGERY; COMMENT: for lateral epicondylitis Medical History Medical History Date Comments Lumbosacral spondylosis with out myelopathy 09/10/2006 DX:Lumbosacral spondylosis w ithout myelopathy Osteoarthrosis, unspecified whether generalized or localized, lower leg 09/10/2006 DX:Osteoarthrosis, unspecified whether generalized or localized, lower leg Osteoarthrosis, unspecified whether generalized or localized, pelvic region and thigh 09/10/2006 DX:Osteoarthrosis, unspecifi ed whether generalized or localized, pelvic region and thigh; COMMENT: Left due to hip dysplasia Allergic rhinitis, cause unspecified 09/10/2006 DX:Allergic rhinitis, cause unspecified Abnormal Papanicolaou smear of cervix and cervical HPV 12/2003 DX:Abnormal Papanicolaou sme ar of cervix and cervical HPV; COMMENT: MERRY I, colpo 01/23 MERRY I Sicca syndrome (CMS/HCC) 09/10/2006 DX:Sicc a syndrome (HCC); COMMENT: Dry eyes and mouth, +RF, +MARCELLO, +Sjogren's antibodies Recurrent parotid swelling Cataract 02/27/2011 DX:Cataract Family History Medical History Relation Name Comments Breast cancer Aunt maternal Hyperlipidemia Brother Diabetes Father Heart attack Father Hyperlipidemia Father Hypertension Father Other cancer Father angiosarcoma li aline Other: tumor Father's side 3 cousins ?lym phoma Colon polyps Mother dx in her 50's Diabetes Mother Hyperlipidemia Mother Hypertension Mother Colon cancer Neg Hx Ovarian cancer Neg Hx Relation Name Status Comments Aunt Alive Brother Father Father's side Mother Social History Tobacco Use Types Packs/Day Years Used Date Smoking Tobacco: Never Smokeless Tobacco: Never Tobacco Cessation:Counseling Given: Not Answered Alcohol Use Standard Drinks/Week Comments No 0 (1 standard drink = 0.6 oz pur e alcohol) Comments No Sex and Gender Information Value Date Recorded Sex Assigned at Not on file Legal Sex Female 3:09 PM EST Gender Identity Not on file Sexual Orientation Not on file Obstetrics History Last Filed Vital Signs Vital Sign Reading [...] Mass Index 34.46 11/03/2024 8:46 AM EST Plan of Treatment Upcoming Encounters Date Type Department Care Team (Late st Contact Info) Description 12/27/2024 9:00 AM EDT Nutrition Bariatric Surgery - [address] [phone] Samina Miller, RD [address] [phone] 12/31/2024 3:30 PM EDT Office Visit Gastroenterology - [address] [phone] Juliana Flores MD 175 [facility] [address] [place] [address] 01/05/2025 8:[address] [facility]oscopy [address] [place] [phone] Juliana Flores MD [address] [address] 01/11/2025 9:45 AM EDT Office Visit Pulmonolgy - [place] [address] [phone] Herman Barbosa MD [address] [address] Health Maintenance Due Date Last Done Comments Hepatitis B Vaccines (1 of 3 - 19+ 3-dose series) 1985 Zoster Vaccines (2 of 3) 02/20/2022 12/26/2021, 09/23 Depression Screening 08/31/2022 HIV Screening 08/31/2022 Medicare Annual Wellness Visit 08/31/2022 Social Influencers of Health Screening 08/31/2022 COVID-19 Vaccine ( season) 2024 07/14/2023, 01/28/2023, 08/31/2022, Additional history exists Hypertension/CHF/CAD Annual BMP Blood Test 09/21/2025 09/21/2024, 08/04/2024, 02/11/2023 Breast Cancer Screening 06/18/2026 06/18/20 24, 06/16/2023, 06/12/2022, Additional history exists Colorectal Cancer Screening: Colonoscopy 11/16/2026 11/16/2019 Cervical Cancer Screening: HPV 01/01/2029 01/02/2024 Cholesterol Screening (Lipid Panel) 09/21/2029 09/21/2024, 08/04/2024, 2023 DTaP,Tdap,and Td Vaccines (3 - Td or Tdap) 11/28/2029 11/29/2019, 01/19/2009 Hepatitis C Screening Completed 12/14/2020 Pneumococcal Vaccine: 50+ Years Completed 02/12/2023, 09/03/2022 Pneumococcal Vaccine: Pediatrics (0 to 5 Years) and At-Risk Patients (6 to 64 Years) Completed 02/12/2023, 09/03/2022 Influenza Vaccine Completed 10/19/2024, , 07/04/2022, Additional history exists HIB Vaccines Aged Out No longer eligi ble based on patient's age to complete this topic HPV Vaccines Aged Out No longer eligi ble based on patient's age to complete this topic Hepatitis A Vaccines Aged Out No long er eligible based on patient's age to complete this topic IPV Vaccines Aged Out No longer eligi ble based on patient's age to complete this topic MMR Vaccines Aged Out No longer eligi ble based on patient's age to complete this topic Meningococcal ACWY Vaccine Aged Out N o longer eligible based on patient's age to complete this topic Meningococcal B Vacine Aged Out No lo nger eligible based on patient's age to complete this topic RSV Immunization Patients Under 20 months Aged Out No longer eligible based on patient's age to complete this topic Varicella Vaccines Aged Out No longer eligible based on patient's age to complete this topic Procedures Procedure Name Priority Date/Time Associated Diagnosis Comments EXTERNAL ULTRASOUND REPORT 10/06/2024 EXTERNAL ULTRASOUND REPORT 10/06/2024 ECG 12-LEAD Routine 09/21/2024 4:17 PM EST Family history of cardiac disorder COMPLETE BLOOD COUNT Routine 09/21/2024 4:16 PM EST Screening for deficiency anemia Sjogren syndrome with gastrointestinal involvement (CMS/HCC) COMPREHENSIVE METABOLIC PANEL Routine 09/21/2024 4:16 PM EST Screening for diabetes mellitus LIPID PANEL WITH REFLEX TO DIRECT LDL Routine 09/21/2024 4:16 PM EST Screening for hyperlipidemia THYROID STIMULATING HORMONE WITH REFLEX TO FREE T4 AND FREE T3 Routine 09/21/2024 4:16 PM EST Screening for thyroid disorder LIPID PANEL WITH REFLEX TO DIRECT LDL Routine 08/04/2024 1:17 PM EST Primary hypertension BASIC METABOLIC PANEL Routine 08/04/2024 1:17 PM EST Primary hypertension ASPARTATE AMINOTRANSFERASE Routine 08/04/2024 1:17 PM EST Primary hypertension ALANINE AMINOTRANSFERASE Routine 08/04/2024 1:17 PM EST Primary hypertension SUSANA SCREENING DIGITAL Routine 06/18/2024 11:31 AM EDT HM HPV Routine 01/02/2024 HM HEPATITIS C SCREENING Routine 12/14/2020 HM COLONOSCOPY Routine 11/16/2019 from Last 3 Months or Most Recently Relevant to Health Maintenance Results * External Ultrasound Report (10/06/2024) Only the most recent of2 resultswithin the time period is included. Anatomical Region Laterality Modality Ultrasound us Provider [facility] US PROCEDURES Final Result * ECG 12 lead (09/21/2024 4:17 PM EST) Narrative Pola Motta MD - 09/21/2024 4:17 PM EST EKG reviewed by Dr Motta us Pola Motta MD ECG ORDERABLES Final Result * Thyroid stimulating hormone with reflex to free t4 and free t3 (09/21/2024 4:16 PM EST) TSH 2.53 0.40 - 4.00 mcIU/mL LAB CHEMISTRY METHOD 09/21/2024 6:34 PM EST [facility] Blood Venous blood specimen / Unknown Venipuncture / Unknown 09/21/2024 4:16 PM EST 09/21/2024 4:17 PM EST us Pola Motta MD LAB BLOOD ORDERABLES Final Res ult [facility] [address] [place] [address], [place] [phone] * (ABNORMAL) Lipid panel with reflex to direct LDL (09/21/2024 4:16 PM EST) Only the most recent of2 resultswithin the time period is included. Cholesterol 180 0 - 200 mg/dL LAB CHEMISTRY METHOD 09/21/2024 6:26 PM EST [facility] Triglycerides 90 0 - 150 mg/dL LAB CHEMISTRY METHOD 09/21/2024 6:26 PM EST [facility] HDL 59 >=40 mg/dL LAB CHEMISTRY METHOD 09/21/2024 6:26 PM EST [facility] LDL Calculated 103(H) 0 - 100 mg/dL LAB CHEMISTRY METHOD 09/21/2024 6:26 PM EST [facility] VLDL Cholesterol Teto 18 mg/dL LAB CHEMISTRY METHOD 09/21/2024 6:26 PM EST [facility] Non HDL Chol. (LDL+VLDL) 121 <145 mg/dL LAB CHEMISTRY METHOD 09/21/2024 6:26 PM EST [facility] Chol/HDL Ratio 3.1 0.0 - 4.4 LAB CHEMISTRY METHOD 09/21/2024 6:26 PM EST [facility] Blood Venous blood specimen / Unknown Venipuncture / Unknown 09/21/2024 4:16 PM EST 09/21/2024 4:17 PM EST us Pola Motta MD LAB BLOOD ORDERABLES Final Res ult [facility] [address] [place] [address], [place] [phone] * Complete blood count (09/21/2024 4:16 PM EST) [facility] WBC 5.2 4.8 - 10.8 K/mcL LAB HEMETOLOGY METHOD 09/21/2024 5:59 PM EST [facility] RBC 4.00 3.80 - 4.80 M/mcL LAB HEMETOLOGY METHOD 09/21/2024 5:59 PM [facility] Hemoglobin 12.0 11.5 - 16.0 g/dL LAB HEMETOLOGY METHOD 09/21/2024 5:59 PM [facility] Hematocrit 36.4 35.0 - 47.0 % LAB HEMETOLOGY METHOD 09/21/2024 5:59 PM [facility] MCV 91.0 79.0 - 98.0 FL LAB HEMETOLOGY METHOD 09/21/2024 5:59 PM [facility] MCH 30.0 27.0 - 32.0 pcg LAB HEMETOLOGY METHOD 09/21/2024 5:59 PM [facility] MCHC 33.0 32.0 - 37.0 g/dL LAB HEMETOLOGY METHOD 09/21/2024 5:59 PM [facility] RDW 12.3 11.0 - 15.0 % LAB HEMETOLOGY METHOD 09/21/2024 5:59 PM [facility] Platelets 323 130 - 400 K/mcL LAB HEMETOLOGY METHOD 09/21/2024 5:59 PM [facility] MPV 9.7 7.0 - 11.0 FL LAB HEMETOLOGY METHOD 09/21/2024 5:59 PM [facility] NRBC 0.0 <1.0 % LAB HEMETOLOGY METHOD 09/21/2024 5:59 PM [facility] NRBC Absolute 0.00 <0.10 K/mcL LAB HEMETOLOGY METHOD 09/21/2024 5:59 PM [facility] Blood Venous blood specimen / Unknown Venipuncture / Unknown 09/21/2024 4:16 PM EST 09/21/2024 4:16 PM EST us Pola Motta MD LAB BLOOD ORDERABLES Final Res ult [facility] [address] [place] [address], * Comprehensive metabolic panel (09/21/2024 4:16 PM EST) Sodium 140 133 - 145 mmol/L LAB CHEMISTRY METHOD 09/21/2024 6:26 PM EST [facility] Potassium 4.1 3.5 - 5.5 mmol/L LAB CHEMISTRY METHOD 09/21/2024 6:26 PM [facility] Chloride 108 96 - 110 mmol/L LAB CHEMISTRY METHOD 09/21/2024 6:26 PM [facility] CO2 29 21 - 32 mmol/L LAB CHEMISTRY METHOD 09/21/2024 6:26 PM [facility] Anion Gap 3 3 - 11 LAB CHEMISTRY METHOD 09/21/2024 6:26 PM [facility] Glucose 83 70 - 100 mg/dL LAB CHEMISTRY METHOD 09/21/2024 6:26 PM [facility] BUN 8 5 - 25 mg/dL LAB CHEMISTRY METHOD 09/21/2024 6:26 PM [facility] Creatinine 0.88 0.50 - 1.10 mg/dL LAB CHEMISTRY METHOD 09/21/2024 6:26 PM [facility] eGFR 77 >=60 mL/min/1. 73m2 LAB CHEMISTRY METHOD 09/21/2024 6:26 PM [facility] Comment:Calculation based on the??Chronic Kidney Disease Epidemiology Collaboration (CKD-EPI) equation refit??without adjustment for race. BUN/Creatinine Ratio 9.1 LAB CHEMISTRY METHOD 09/21/2024 6:26 PM [facility] Calcium 10.0 8.5 - 10.5 mg/dL LAB CHEMISTRY METHOD 09/21/2024 6:26 PM [facility] AST (SGOT) 31 10 - 42 unit/L LAB CHEMISTRY METHOD 09/21/2024 6:26 PM EST [facility] ALT (SGPT) 36 10 - 60 unit/L LAB CHEMISTRY METHOD 09/21/2024 6:26 PM [facility] Alkaline Phosphatase 74 42 - 121 unit/L LAB CHEMISTRY METHOD 09/21/2024 6:26 PM [facility] Total Protein 7.7 6.0 - 8.0 g/dL LAB CHEMISTRY METHOD 09/21/2024 6:26 PM [facility] Albumin 4.3 3.2 - 5.0 g/dL LAB CHEMISTRY METHOD 09/21/2024 6:26 PM [facility] Total Bilirubin 0.5 0.0 - 1.4 mg/dL LAB CHEMISTRY METHOD 09/21/2024 6:26 PM [facility] Blood Venous blood specimen / Unknown Venipuncture / Unknown 09/21/2024 4:16 PM EST 09/21/2024 4:17 PM EST us Pola Motta MD LAB BLOOD ORDERABLES Final Res ult Performing Organization Address City/[facility]/ZIP Co de Phone Number [facility] [address] [place] [address], * Alanine aminotransferase (08/04/2024 1:17 PM EST) ALT (SGPT) 28 10 - 60 unit/L LAB CHEMISTRY METHOD 08/04/2024 5:29 PM EST [facility] Blood Venous blood specimen / Unknown Venipuncture / Unknown 08/04/2024 1:17 PM EST 08/04/2024 1:17 PM EST us Pola Motta MD LAB BLOOD ORDERABLES Final Res ult [facility] [address] [place] [address], [place] [phone] * Aspartate aminotransferase (08/04/2024 1:17 PM EST) [facility] AST (SGOT) 20 10 - 42 unit/L LAB CHEMISTRY METHOD 08/04/2024 5:34 PM [facility] Blood Venous blood specimen / Unknown Venipuncture / Unknown 08/04/2024 1:17 PM EST 08/04/2024 1:17 PM EST us Pola Motta MD LAB BLOOD ORDERABLES Final Res ult [facility] [address] [place] [address], [place] [phone] * (ABNORMAL) Basic metabolic panel (08/04/2024 1:17 PM EST) [facility] Sodium 141 133 - 145 mmol/L LAB CHEMISTRY METHOD 08/04/2024 5:29 PM [facility] Potassium 4.1 3.5 - 5.5 mmol/L LAB CHEMISTRY METHOD 08/04/2024 5:29 PM [facility] Chloride 108 96 - 110 mmol/L LAB CHEMISTRY METHOD 08/04/2024 5:29 PM [facility] CO2 28 21 - 32 mmol/L LAB CHEMISTRY METHOD 08/04/2024 5:29 PM [facility] Anion Gap 5 3 - 11 LAB CHEMISTRY METHOD 08/04/2024 5:29 PM [facility] Glucose 101(H) 70 - 100 mg/dL LAB CHEMISTRY METHOD 08/04/2024 5:29 PM [facility] BUN 11 5 - 25 mg/dL LAB CHEMISTRY METHOD 08/04/2024 5:29 PM [facility] Creatinine 0.85 0.50 - 1.10 mg/dL LAB CHEMISTRY METHOD 08/04/2024 5:29 PM EST [facility] eGFR 80 >=60 mL/min/1. 73m2 LAB CHEMISTRY METHOD 08/04/2024 5:29 PM EST [facility] Comment:Calculation based on the??Chronic Kidney Disease Epidemiology Collaboration (CKD-EPI) equation refit??without adjustment for race. BUN/Creatinine Ratio 12.9 LAB CHEMISTRY METHOD 08/04/2024 5:29 PM EST [facility] Calcium 9.9 8.5 - 10.5 mg/dL LAB CHEMISTRY METHOD 08/04/2024 5:29 PM EST [facility] Blood Venous blood specimen / Unknown Venipuncture / Unknown 08/04/2024 1:17 PM EST 08/04/2024 1:17 PM EST us Pola Motta MD LAB BLOOD ORDERABLES Final Res ult [facility]) [facility] [address] [place] [address], * SUSANA SCREENING DIGITAL (06/18/2024 11:31 AM EDT) Anatomical Region Laterality Modality Mammography 06/18/2024 7:50 AM EDT Narrative 06/18/2024 11:31 AM EDT [facility] Diagnostic Imaging Department [address] [place] [address] Patient: ??YANIRA BERMAN ?/Age/Sex: 1965 - 58 - F Unit#: ??[id number] ? Location/Status: ??SPDIMAM/REG CLI ? Mnemonic/Ordering Site: ??DIGSC/SPMAM Ordering Physician: ??ELLY LAUGHLIN DO [facility] Screening Digital - 06/18/24 - 817 Report Status:Signed EXAM: [facility] Screening Digital EXAM DATE AND TIME: 06/18/2024 8:19 AM HISTORY: ??Screening. Maternal aunt had breast carcinoma in her 70's. COMPARISON: ??06/16/23, 06/12/22, 06/09/21 TECHNIQUE: Bilateral digital breast tomosynthesis was performed in the CC and MLO projections. Computer aided detection with [employer] 3D 3.1 was employed. TISSUE DENSITY: a. The breasts are almost entirely fatty. FINDINGS: No suspicious masses, grouped microcalcifications, or areas of architectural distortion are seen. The skin and vascularity are unremarkable. IMPRESSION: Stable mammographic appearance of the breasts. ??No evidence of malignancy is seen. A negative mammogram in the presence of a clinically suspicious palpable abnormality does not preclude the possibility of malignancy or alter the indications for biopsy. BI-RADS: ??Category 1: Negative RECOMMENDATION(S): 1: Routine screening mammogram BILATERAL in 1 year. Mammogram performed at [facility] [place] [address] Dictating Physician: ??PADMAJA BOYD MD Electronically Signed by: ??PADMAJA BOYD MD Dic Date/Time: ??06/18/24 1130 Sign date/Time: ??06/18/24 1131 Procedure Note Padmaja Boyd MD - 07/07/2024 [facility] Diagnostic Imaging Department [address] [place] [id number] Patient: YANIRA BERMAN /Age/Sex: 1965 - 58 - F Unit#: [id number] Location/Status: SPDIMAM/REG CLI Mnemonic/Ordering Site: DIGMO/[facility] Ordering Physician: ELLY LAUGHLIN DO [facility] Screening Digital - 06/18/24 - 817 Report Status:Signed EXAM: [facility] Screening Digital EXAM DATE AND TIME: 06/18/2024 8:19 AM HISTORY: Screening. Maternal aunt had breast carcinoma in her 70's. COMPARISON: 06/16/23, 06/12/22, 06/09/21 TECHNIQUE: Bilateral digital breast tomosynthesis was performed in the [facility] MLO projections. Computer aided detection with [employer] 3D 3.1was employed. TISSUE DENSITY: a. The breasts are almost entirely fatty. FINDINGS: No suspicious masses, grouped microcalcifications, or areas ofarchitectural distortion are seen. The skin and vascularity are unremarkable. IMPRESSION: Stable mammographic appearance of the breasts. No evidence of malignancyis seen. A negative mammogram in the presence of a clinically suspicious palpable abnormality does not preclude the possibility of malignancy or alter the indications for biopsy. BI-RADS: Category 1: Negative RECOMMENDATION(S): 1: Routine screening mammogram BILATERAL in 1 year. Mammogram performed at [facility] [place] [address] Dictating Physician: PADMAJA BOYD MD Electronically Signed by: PADMAJA BOYD MD Dic Date/Time: 06/18/24 1130 Sign date/Time: 06/18/24 1131 Elly Laughlin DO IMG BI PROCEDURES Final Result * Cervical Cancer Screening: HPV (01/02/2024) [facility] Cervical Cancer Screening: HPV negative, abstracted Historical Provider HEALTH MAINTENANCE Final Result * Hepatitis C Screening (12/14/2020) [facility] Hepatitis C Screening abstracted Historical Provider HEALTH MAINTENANCE Final Result * Colonoscopy (11/16/2019) [facility] Colonoscopy normal, abstracted Anatomical Region Laterality Modality Other Historical Provider HEALTH MAINTENANCE Final Result from Last 3 Months or Most Recently Relevant to Health Maintenance [place] Care Teams Therapeutic Program Worker Relationship Specialty Start Date End Date Pola Motta MD [address] [place] [phone] PCP - General Internal Medicine 07/28/24
[2024-11-03 10:54] LABS: Basophils Percent Auto 0.8 % (0-2); Eosinophils Absolute Auto 0.1 X10*3/uL (0.0-0.4); Eosinophils Percent Auto 3.1 % (0-4); Hematocrit 37.5 % (37.0-47.0); Hemoglobin 12.7 g/dl (12.0-16.0); Imm Gran Abs Auto 0.02 X10*3/uL (0.00-0.03); Imm Gran Pct Auto 0.5 % (0.0-0.4); Lymphocytes Absolute Auto 0.8 X10*3/uL (1.2-4.9); Lymphocytes Percent Auto 19.5 % (20-40); Mean Corpuscular HGB Conc 33.9 g/dl (31.0-35.0); Mean Corpuscular Hemoglobin 30.4 pg (27.0-33.0); Mean Corpuscular Volume 89.7 fL (80.0-98.0); Mean Platelet Volume 9.5 fL (9.4-12.3); Monocytes Absolute Auto 0.4 X10*3/uL (0.1-1.2); Monocytes Percent Auto 9.1 % (2-11); Neutrophils Absolute Auto 2.6 x10*3/uL (2.0-8.3); Platelet Count 306 X10*3/uL (160-400); Red Blood Count 4.18 X10*6/uL (4.20-5.50); Red Cell Distribution Width 11.9 % (11.0-16.0); White Blood Count 3.9 X10*3/uL (4.8-10.8)
[2024-11-03 11:16] LABS: Alanine Aminotransferase 37 U/L (0-31); Albumin Level 4.3 g/dL (3.5-5.0); Alkaline Phosphatase 68 U/L (39-117); Anion Gap 10 (12-20); Aspartate Amino Transferase 31 U/L (5-31); Bilirubin Direct 0.1 mg/dL (0.0-0.5); Bilirubin Total 0.5 mg/dL (0.0-1.0); Blood Urea Nitrogen 9 mg/dL (9-16); C Reactive Protein 0.25 mg/dL (< or = 0.50); Calcium 9.4 mg/dL (8.4-10.2); Carbon Dioxide 27 mmol/L (22-29); Chloride 110 mmol/L (96-108); Estimated Glomerular Filt Rate > 60; Glucose Random 79 mg/dL (60-115); Magnesium 2.1 mg/dL (1.6-2.6); Potassium 3.9 mmol/L (3.3-5.1); Sodium 143 mmol/L (135-145); Total Protein 7.8 g/dL (6.5-8.0)
[2024-11-03 11:34] LABS: Erythrocyte Sedimentation Rate 23 MM/HR (0-20)
[2024-11-05 08:03] LABS: Prot Elec - Albumin 4.4 g/dL (3.8-4.8); Prot Elec - Alpha1 0.2 g/dL (0.2-0.3); Prot Elec - Alpha2 0.7 g/dL (0.5-0.9); Prot Elec - Beta 1 0.5 g/dL (0.4-0.6); Prot Elec - Beta 2 0.4 g/dL (0.2-0.5); Prot Elec - Gamma 1.2 g/dL (0.8-1.7); Prot Elec - Total Protein 7.4 g/dL (6.1-8.1)
[2024-11-05 12:23] LABS: IgA 252 mg/dL (47-310); IgG 1477 mg/dL (600-1640); IgM 49 mg/dL (50-300)
== END 2024-11-03 09:25 | disposition home or self-care (01) ==
LOC: HO.LAB 09:24
PROVIDERS: PCP Internal Medicine; Visit Provider Student in an Organized Health Care Education/Training Program
DX: M35.05 Sjogren syndrome with inflammatory arthritis (principal)
CPT/HCPCS: 36415; 80053; 82248; 82784; 83735; 84165; 85025; 85652; 86140; 86334

== ENCOUNTER 2024-11-11 08:26 | Outpatient (AMB) | payer MEDICARE, MEDICAID, SELFPAY ==
--- NOTE | 2024-11-11 08:31 | MHC.OFFVIS ---
Vital Signs 11/11/24 08:35 Height 5 ft 2 in Weight 186 lb 15.232 oz BMI 34.2 BP 132/80 Blood Pressure Location Lt brachial Position Sitting Pulse 62 Pulse Source Pulse Oximeter Pulse Oximetry (%) 98 Oxygen Delivery Method Room Air Intake Visit Reasons: Sjogren's Intake Note: Patient present for Sjogren's. Allergies No Known Allergies Allergy (Verified 11/11/24 08:34) Medication List - Last Reconciled 11/11/24 by Manisha Epstein MD acetaminophen (Tylenol) 650 mg PO Q6H PRN albuterol sulfate 90 mcg/actuation inhalation celecoxib 200 mg PO BID cyclosporine 0.05% (Restasis) 2 drps ophthalmic (eye) TID fluticasone furoate 50 mcg/actuation inhalation DAILY PRN fluticasone furoate 100 mcg/actuation (Arnuity Ellipta) 1 inh inhalation DAILY gabapentin 100 mg PO TID hydroxychloroquine 200 mg PO BID meclizine 12.5 mg PO TID PRN nortriptyline 50 mg PO BEDTIME omeprazole 40 mg PO DAILY rituximab (Rituxan) IV triamcinolone acetonide (Nasacort) 1 spray intranasal DAILY HPI Comments Details: Patient is a 59-year-old female with Sjogren's syndrome complicated by gastrointestinal involvement (esophageal dysmotility) and inflammatory arthritis, pulmonary cystic lung disease/LIP in the setting of Sjogren's syndrome, fibromyalgia, polyarticular osteoarthritis s/p left hip replacement here today for follow up Interval History: Patient last seen 09/13/[address] Cuellar. At that time she was complaining of increased fatigue. Her ILD was stable her Sjogren's was clinically stable. She had a follow up CT done in [place] which showed stable disease. Today, Patient reports feeling overall well. Is currently planning to travel to [place] with her mother for procedure Rheumatologic History: Sjogrens syndrome c/b ILD, inflammatory arthritis and GI involvement Dry eyes and mouth, +RF, +MARCELLO, +++Ro52 +++Ro60 +++La Recurrent parotid swelling. cystic lung changes consistent with LIP - diagnosed with lung disease when evaluated for cough and abdominal rash with PFTs 2005. First diagnosed with cystic lung disease in 2018. On hydroxychloroquine - Eye exam 02/04. 03/08, 08/08, 09/08, 05/10, 01/2021, 02/2022,02/2023 RTX 1 g X2 doses 02/2023 & 09/2023 & 04/2024 Current Rheumatology Medication(s): Rituximab 1 g x 2 doses every 6 months Plaquenil 200 mg b.i.d. Gabapentin 100 mg t.i.d. [facility] Medical History (Updated 11/11/24 @ 15:23 by Manisha Epstein MD) Encounter for monitoring of hydroxychloroquine therapy Encounter for monitoring rituximab therapy Osteoarthritis, hand Cervical spondylosis Lumbar spondylosis Esophageal dysmotility Sjogren's syndrome with gastrointestinal involvement Yawning Hypersomnia Snoring delivery delivered Long-term use of hydroxychloroquine Osteoarthritis cervical spine Fibromyalgia Osteoarthritis of lumbar spine Tendinitis of left rotator cuff Surgical History History of hip surgery H/O elbow surgery H/O toe surgery Family History Mother HTN (hypertension) Osteoarthritis Parkinson disease Diabetes Hypercholesteremia Age related osteoporosis Diverticulitis Father No problems noted. Social History Household Members: Spouse Housing: House Are you a primary inpatient care manager rn to a significant other at home: No Do you presently have visiting nurse or other home services: No 75 years or older and lives alone: No Alcohol intake: never Patient Tobacco Use Status: Never used Tobacco e-Cigarette/Vaping Use: Never Used service: No Current occupational status: disabled Review of Systems Const Details: Review of Systems Constitutional: Denies fever, chills, weight loss ENT: Denies vision changes, eye pain, dental caries GI: Denies nausea, vomiting, diarrhea, abdominal pain, change in BM Pulm: Denies SOB, LU, hemoptysis, wheezing Cards: Denies chest pain, palpitations Skin: Denies Raynaud's, rash, nail changes, photosensitivity, DIE MAKER STAMPING: Denies headaches, weakness, paresthesias, recurrent falls MSK: as per HPI All other systems reviewed and are unremarkable except noted above Physical Exam Vital Signs: Last Vital Signs Pulse 62 11/11/24 08:35 BP 132/80 11/11/24 08:35 Pulse Ox 98 02/20/25 08:35 Oxygen Delivery Method Room Air 11/11/24 08:35 BMI result Body Mass Index 34.2 Vital signs reviewed Physical Examination CONSTITUITIONAL Patient alert and cooperative. Well appearing and in no apparent painful distress HEENT Conjunctiva and sclera clear. ?Pupils equal round and reactive to light. ?No lymphadenopathy. ? CHEST/RESPIRATORY SYSTEM Normal respiratory effort and able to speak in complete sentences. ?Clear to auscultation bilaterally. ?No crackles, rales, rhonchi, wheezes heard. CARDIAC SYSTEM Regular rate and rhythm. ?S1 and S2 heard no murmurs. ?Radial pulses intact bilaterally MSK Hands: ?Good trapper bird strength bilaterally. No deformities noted. ?No synovitis noted to the MCPs, PIPs or DIPs. ?No tenderness to palpation of these joints. Wrists: ?Full range of motion at the wrists without pain. ?No tenderness to palpation or synovitis noted to the wrists. Elbows: Full range of motion without pain. No tenderness, weakness, swelling, increased warmth or erythema. Shoulders: Full range of motion without pain. No tenderness, weakness, swelling, increased warmth or erythema. Hips: Full range of motion without pain. Hip bursa: No tenderness to palpation Knees: ?Full range of motion. ?No tenderness, swelling, increased warmth or erythema.?No effusion or crepitations Ankles: Full range of motion. ?No tenderness, swelling, increased warmth or erythema.? Feet: ?Negative squeeze test. ?No tenderness to palpation or swelling of the MTPs. Tender points:?No tenderness to palpation of the bilateral trapezius, supraspinatus, greater trochanters, anterior costochondral junctions, bilateral gluteal areas, bilateral suboccipital muscle insertions SKIN Skin intact without rashes. Results Reviewed Results Reviewed: Laboratory Tests 12/11/23 06/09/24 09/07/24 10/19/24 12:05PM 11:00 10:45 10:40 WBC RBC Hgb Hct Plt Count ESR 25 H Sodium Potassium Chloride Carbon Dioxide BUN Creatinine Calcium Magnesium Total Bilirubin Direct Bilirubin AST 34 H ALT 32 H Alkaline Phosphatase C-Reactive Protein 0.37 PEP Interpretation IgG Total IgA Total IgM Complement C3 153 156 Complement C4 21 19 Rheumatoid factor 13 11/03/24 09:37 WBC 3.9 L RBC 4.18 L Hgb 12.7 Hct 37.5 Plt Count 306 ESR 23 H Sodium 143 Potassium 3.9 Chloride 110 H Carbon Dioxide 27 BUN 9 Creatinine 0.87 Calcium 9.4 Magnesium 2.1 Total Bilirubin 0.5 Direct Bilirubin 0.1 AST 31 ALT 37 H Alkaline Phosphatase 68 C-Reactive Protein 0.25 PEP Interpretation SEE NOTE IgG Total 1477 IgA Total 252 IgM 49 L Complement C3 Complement C4 CD19+ <0.1 CD20 <0.1 CT Chest 06/10/24 (compared w/ CT chest 07/16/23) FINDINGS: Lungs: No significant change in numerous thin-walled cysts scattered throughout the lungs, for example 1.2 cm right apical cyst (7:61), 2.4cm septated cyst in th eleft apex (7:71), 3.0cm right lower lobe cyst (7:203) noting unchanged subtle superior wall thickening/pneumonia opacity (5:79), and 3.8cm left lower lobe cyst (7:236). Prone imaging shows no posterior reticulation or ground glass opacity. Expiratory imaging shows mild scattered air trapping. The central airways are clear. Impression: No significant change in numerous cysts throughout the lungs, compatible with LIP given hx of Sjogrens syndrome Assessment & Plan Assessment & Plan (1) Sjogren's syndrome with gastrointestinal involvement: Code(s): M35.08 - Sjogren syndrome with gastrointestinal involvement Category: Medical Plan: #Sjogren's syndrome Patient with Sjogren's syndrome currently overall in remission. Still has some mild arthritis involving her hands but there was no prolonged morning stiffness or swelling. 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 11/3022 CT at the [facility] showing increasing size of the cysts Code(s): J84.9 - Interstitial pulmonary disease, unspecified; M35.9 - Systemic involvement of connective tissue, unspecified Category: Medical Plan: #LIP/CLARKE 2/[address] done 05/2024 showing stable lung cysts. Given her stable disease I think it is reasonable for us to increase the duration of the rituximab infusions from 6 months to 8 months. We will keep the dosage the same and just increase the time between infusions. I think it is feared for us to do this for at least 2 sessions and then re-evaluate with a CD19 levels and repeat imaging. If everything is stable from that friend we can potentially reduce the dose at each session Plan - Rituxumab 1000mg day 0 and day 15 every 8 months - Appreciate pulm input - Repeat CT as per pulm (3) Encounter for monitoring rituximab therapy: Code(s): Z51.81 - Encounter for therapeutic drug level monitoring; Z79.620 - termite technician (current) use of immunosuppressive biologic Category: Medical Plan: #Long-term Use of Rituxumab Discussed with this patient the risks and benefits of rituximab use to the management of the rheumatic condition Benefits include improved disease control and maintenance of remission Risks include hypogammaglobulinemia and increased risk of opportunistic infections, reactivation of hepatitis-B, infusion reactions Monitoring: ?Immunoglobulins, hepatitis-B serologies, CBC. CD 19 as needed (4) Encounter for monitoring of hydroxychloroquine therapy: Code(s): Z51.81 - Encounter for therapeutic drug level monitoring; Z79.899 - Other nursing home (current) drug therapy Category: Medical Plan: #Long-term Use of Hydroxychloroquine Discussed with patient the risks and benefits of hydroxychloroquine in managing the rheumatic condition Benefits include: - Reduced pain, reduce mortality, maintenance of remission and reduction of flares Risks include: - GI upset, skin hyperpigmentation, retinal toxicity (especially after more than 5 years of use), myopathy Advised yearly ophthalmology visits Orders: Orders Complete Blood Count Auto Diff 5 Months J84.9 - Interstitial pulmonary disease, unspecified, M35.08 - Sjogren syndrome with gastrointestinal involvement, M35.9 - Systemic involvement of connective tissue, unspecified Complement C4 5 Months J84.9 - Interstitial pulmonary disease, unspecified, M35.08 - Sjogren syndrome with gastrointestinal involvement, M35.9 - Systemic involvement of connective tissue, unspecified Rheumatoid Factor 5 Months J84.9 - Interstitial pulmonary disease, unspecified, M35.08 - Sjogren syndrome with gastrointestinal involvement, M35.9 - Systemic involvement of connective tissue, unspecified Hepatitis A,B,C Profile 5 Months J84.9 - Interstitial pulmonary disease, unspecified, M35.08 - Sjogren syndrome with gastrointestinal involvement, M35.9 - Systemic involvement of connective tissue, unspecified Immunofixation Pnl, Serum 5 Months M35.08 - Sjogren syndrome with gastrointestinal involvement Comprehensive Met. Panel 5 Months J84.9 - Interstitial pulmonary disease, unspecified, M35.08 - Sjogren syndrome with gastrointestinal involvement, M35.9 - Systemic involvement of connective tissue, unspecified C Reactive Protein 5 Months J84.9 - Interstitial pulmonary disease, unspecified, M35.08 - Sjogren syndrome with gastrointestinal involvement, M35.9 - Systemic involvement of connective tissue, unspecified Complement C3 5 Months J84.9 - Interstitial pulmonary disease, unspecified, M35.08 - Sjogren syndrome with gastrointestinal involvement, M35.9 - Systemic involvement of connective tissue, unspecified Erythrocyte Sedimentation Rate 5 Months J84.9 - Interstitial pulmonary disease, unspecified, M35.08 - Sjogren syndrome with gastrointestinal involvement, M35.9 - Systemic involvement of connective tissue, unspecified T Spot TB 5 Months J84.9 - Interstitial pulmonary disease, unspecified, M35.08 - Sjogren syndrome with gastrointestinal involvement, M35.9 - Systemic involvement of connective tissue, unspecified Protein Electrophoresis, Serum 5 Months M35.08 - Sjogren syndrome with gastrointestinal involvement Referrals Infusion Center Notification J84.9 - Interstitial pulmonary disease, unspecified, M35.08 - Sjogren syndrome with gastrointestinal involvement, M35.9 - Systemic involvement of connective tissue, unspecified Medications: New diclofenac sodium 1% (Voltaren Arthritis Pain) apply to hands 4 times a day 4 grams topical QID 100 grams 5RF M19.049 - Primary osteoarthritis, unspecified hand Refilled hydroxychloroquine 200 mg PO BID 180 tabs 1RF M35.05 - Sjogren syndrome with inflammatory arthritis gabapentin 100 mg PO TID 270 caps 1RF M79.7 - Fibromyalgia Discontinued celecoxib Discontinued Reason: Patient no longer taking 200 mg PO BID 180 caps 3RF M16.0 - Bilateral primary osteoarthritis of hip Coding Level of Care Code Est Pt Level 4 (78905) Complex EM visit Add On G2211 Diagnoses Sjogren's syndrome with gastrointestinal involvement M35.08 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
[2024-11-11 08:35] VITALS: BP 132/80; PULSE 62; O2SAT 98; BMI 34.2
--- OUTSIDE RECORDS SUMMARY | 2024-11-11 08:51 | XMS_ITS | Encounter Summary ---
Author Organization [facility] Address [address] [place] [address] Care Team Providers Care Cargo Inspector Name Role Phone Pola Motta MD Primary Care Provider [phone] Reason for Visit * Reason Comments Follow-up 2 month Encounter Details Date Type Department Care Team ([facility] st Contact Info) Description 11/03/2024 8:45 AM EST Office Visit Bariatric Surgery - [place] [address] [facility] [address] [place] [address] Consuelo Hernandez PA [address] [facility] [address] [place] [address] Class 1 obesity due to excess calories [...] 50 pounds Referred by: PCP Has tried [id number] weight loss medication in the past Has [...] Surgical History: Procedure Laterality Date SECTION PROCEDURE: MN DELIVERY ONLY COLONOSCOPY 04/12/2010 PROCEDURE: HISTORICAL COLONOSCOPY; COMMENT: Normal COLONOSCOPY 2014 PROCEDURE: HISTORICAL COLONOSCOPY; COMMENT: normal ELBOW SURGERY Left 01/2019 PROCEDURE: HISTORICAL ELBOW SURGERY; COMMENT: for lateral epicondylitis ESOPHAGOGASTRODUODENOSCOPY 2003 PROCEDURE: MN ESOPHAGOGASTRODUODENOSCOPY TRANSORAL DIAGNOSTIC; COMMENT: cervical esophageal web, dilated to 48 Mongolian OTHER SURGICAL HISTORY 12/01/07 PROCEDURE: MN EGD DILATION GASTRIC/DUODENAL STRICTURE; COMMENT: cervical esophageal web, dilated to48 Mongolian OTHER SURGICAL HISTORY 12/14/14 PROCEDURE: MN EGD INSERT GUIDE WIRE DILATOR PASSAGE ESOPHAGUS; [...] Care Team (Late st Contact Info) Description 12/31/2024 3:30 PM EDT Office Visit Gastroenterology - [place] [facility] [address] [phone] Juliana Flores MD [address] [address] 01/05/2025 8:30 AM EDT Appointment [facility] [address] [place] [phone] Juliana Flores MD [address] [address] 01/11/2025 9:45 AM EDT Office Visit Pulmonolgy - [place] [address] [phone] Herman Barbosa MD [address] [phone] documented as of this encounter Visit Diagnoses Diagnosis Class 1 obesity due to excess calories with serious comorbidity and body mass index (BMI) of 34.0 to 34.9 in adult- Primary documented in this encounter Care Teams Cargo Inspector Relationship Specialty Start Date End Date Pola Motta MD [address] [place] [phone] PCP - General Internal Medicine 07/28/24 documented as of this encounter
--- OUTSIDE RECORDS SUMMARY | 2024-11-11 08:52 | XMS_ITS | Clinical Summary ---
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 Role Phone Pola Motta MD Primary Care Provider [phone] Allergies No known active allergies Medications fluticasone [...] 8:45 AM EST Office Visit Bariatric Surgery [address] [phone] Consuelo Hernandez PA Class 1 obesity due to excess calories with serious comorbidity and body mass index (BMI) of 34.0 to 34.9 in adult (Primary Dx) 10/19/2024 Telephone Internal Medicine - [place] [address] [place] [address] Pola Motta MD Referral 09/27/2024 9:00 AM EST Nutrition Bariatric Surgery [address] [phone] Samina Miller, MANN Class 1 obesity without serious comorbidity with body mass index (BMI) of 34.0 to 34.9 in adult, unspecified obesity type (Primary Dx) 09/21/2024 3:30 PM EST Office Visit Internal Medicine - [address] [phone] Pola Motta MD Adult general medical examination (Primary Dx); Screening for deficiency anemia; Screening for hyperlipidemia; Screening for diabetes mellitus; Screening for thyroid disorder; Sjogren syndrome with gastrointestinal involvement (CMS/HCC); Elevated liver function tests; Family history of cardiac disorder 08/16/2024 Telephone Internal Medicine - [address] [phone] Pola Motta MD Hypertension from Last 3 Months Immunizations Name Administration Dates Next Due Influenza Quadravalent, MDCK , 0.5ml, preservative free (Flucelvax) 6mo and older 07/04/2022,08/28/2021,06/09/2020,07/20 Influenza trivalent, with pr eservative (Fluzone; Afluria) 6mo and older 08/11/2014,08/05/2013,07/07/2012,08/07,08/05/2007 Pfizer SARS-CoV-2 COVID-19, mRNA, LNP-S, preservative free 08/21/2021,01/16/2021,12/21/2020 Pneumococcal polysaccharide 23 valent (Pneumovax 23) 2yo and older 02/12/2023 Td Tetanus diptheria (Tdvax) 7yo and older 11/29/2019 Tdap Tetanus diptheria acell ular pertussis (Boostrix; Adacel) 7yo and older 01/19/2009 Zoster Live 12/26/2021,10/11/2021 Surgical History Surgery Date Site/Laterality Comments SECTION PROCEDURE: [place] DELIVERY ONLY COLONOSCOPY 04/12/2010 PROCEDURE: HISTORICAL COLONOSCOPY; COMMENT: Normal TUBAL LIGATION 1993 PROCEDURE: HISTORICAL TUBAL LIGATION ESOPHAGOGASTRODUODENOSCOPY 2003 PROCEDURE: KS ESOPHAGOGASTRODUODENOSCOPY TRANSORAL DIAGNOSTIC; COMMENT: cervical esophageal web, dilated to 48 Icelandic OTHER SURGICAL HISTORY 12/01/07 PROCEDURE: KS EGD DILATION GASTRIC/DUODENAL STRICTURE; COMMENT: cervical esophageal web, dilated to 48 Icelandic OTHER SURGICAL HISTORY 12/14/14 PROCEDURE: KS EGD INSERT GUIDE WIRE DILATOR PASSAGE ESOPHAGUS; [...] 3:30 PM EDT Office Visit Gastroenterology - [place] 175 [facility] [address] [phone] Juliana Flores MD [address] [address] 01/05/2025 8:30 AM EDT Appointment [facility] Endoscopy [address] [place] [phone] Juliana Flores MD [address] [address] 01/11/2025 9:45 AM EDT Office Visit Pulmonolgy - [place] [address] [phone] Herman Barbosa MD [address] [address] Health Maintenance Due Date Last Done Comments [...] Name Priority Date/Time Associated Diagnosis Comments EXTERNAL CLINICAL LAB 11/09/2024 EXTERNAL CLINICAL LAB 11/08/2024 EXTERNAL CLINICAL LAB 11/04/2024 EXTERNAL ULTRASOUND REPORT 10/06/2024 EXTERNAL ULTRASOUND REPORT [...] 4:16 PM EST Screening for thyroid disorder SUSANA SCREENING DIGITAL Routine 06/18/2024 11:31 AM EDT HM HPV Routine 01/02/2024 HM HEPATITIS C SCREENING Routine 12/14/2020 HM COLONOSCOPY Routine 11/16/2019 from Last 3 Months or Most Recently Relevant to Health Maintenance Results * External clinical lab (11/09/2024) Only the most recent of3 resultswithin the time period is included. Provider [facility] LAB BLOOD ORDERABLES Fin al Result * External Ultrasound Report (10/06/2024) Only the most recent of2 resultswithin the time period is included. Anatomical Region Laterality Modality Ultrasound us Provider [facility] IMG US PROCEDURES Final Result * ECG 12 lead (09/21/2024 4:17 PM EST) Narrative Pola Motta MD - 09/21/2024 4:17 PM EST EKG reviewed by Dr Motta us Pola Motta MD ECG ORDERABLES Final Result * Thyroid stimulating hormone with reflex to free t4 and free t3 (09/21/2024 4:16 PM EST) Pathologist [facility] TSH 2.53 0.40 - 4.00 mcIU/mL LAB CHEMISTRY METHOD 09/21/2024 6:34 PM EST [facility] Blood Venous blood specimen / Unknown Venipuncture / Unknown 09/21/2024 4:16 PM EST 09/21/2024 4:17 PM EST us Pola Motta MD LAB BLOOD ORDERABLES Final Res ult [facility] [address] [place] [address], [place] [phone] * (ABNORMAL) Lipid panel with reflex to direct LDL (09/21/2024 4:16 PM EST) Pathologist [facility] Cholesterol 180 0 - 200 mg/dL LAB CHEMISTRY METHOD 09/21/2024 6:26 PM [facility] Triglycerides 90 0 - 150 mg/dL LAB CHEMISTRY METHOD 09/21/2024 6:26 PM [facility] HDL 59 >=40 mg/dL LAB CHEMISTRY METHOD 09/21/2024 6:26 PM [facility] LDL Calculated 103(H) 0 - 100 mg/dL LAB CHEMISTRY METHOD 09/21/2024 6:26 PM [facility] VLDL Cholesterol Teto 18 mg/dL LAB CHEMISTRY METHOD 09/21/2024 6:26 PM [facility] Non HDL Chol. (LDL+VLDL) 121 <145 mg/dL LAB CHEMISTRY METHOD 09/21/2024 6:26 PM [facility] Chol/HDL Ratio 3.1 0.0 - 4.4 LAB CHEMISTRY METHOD 09/21/2024 6:26 PM [facility] Blood Venous blood specimen / Unknown Venipuncture / Unknown 09/21/2024 4:16 PM EST 09/21/2024 4:17 PM EST us Pola Motta MD LAB BLOOD ORDERABLES Final Res ult [facility] [address] [place] [address], [place] [phone] * Complete blood count (09/21/2024 4:16 PM EST) WBC 5.2 4.8 - 10.8 K/mcL LAB HEMETOLOGY METHOD 09/21/2024 5:59 PM EST [facility] RBC 4.00 3.80 - 4.80 M/mcL LAB HEMETOLOGY METHOD 09/21/2024 5:59 PM EST [facility] Hemoglobin 12.0 11.5 - 16.0 g/dL LAB HEMETOLOGY METHOD 09/21/2024 5:59 PM EST [facility] Hematocrit 36.4 35.0 - 47.0 % LAB HEMETOLOGY METHOD 09/21/2024 5:59 PM EST [facility] MCV 91.0 79.0 - 98.0 FL LAB HEMETOLOGY METHOD 09/21/2024 5:59 PM EST [facility] MCH 30.0 27.0 - 32.0 pcg LAB HEMETOLOGY METHOD 09/21/2024 5:59 PM EST [facility] MCHC 33.0 32.0 - 37.0 g/dL LAB HEMETOLOGY METHOD 09/21/2024 5:59 PM EST [facility] RDW 12.3 11.0 - 15.0 % LAB HEMETOLOGY METHOD 09/21/2024 5:59 PM EST [facility] Platelets 323 130 - 400 K/mcL LAB HEMETOLOGY METHOD 09/21/2024 5:59 PM EST [facility] MPV 9.7 7.0 - 11.0 FL LAB HEMETOLOGY METHOD 09/21/2024 5:59 PM EST [facility] NRBC 0.0 <1.0 % LAB HEMETOLOGY METHOD 09/21/2024 5:59 PM EST [facility] NRBC Absolute 0.00 <0.10 K/mcL LAB HEMETOLOGY METHOD 09/21/2024 5:59 PM EST [facility] Blood Venous blood specimen / Unknown Venipuncture / Unknown 09/21/2024 4:16 PM EST 09/21/2024 4:16 PM EST us Pola Motta MD LAB BLOOD ORDERABLES Final Res ult [facility] [address] [place] [address], * Comprehensive metabolic panel (09/21/2024 4:16 PM EST) Sodium 140 133 - 145 mmol/L LAB CHEMISTRY METHOD 09/21/2024 6:26 PM [facility] Potassium 4.1 3.5 - 5.5 mmol/L LAB CHEMISTRY METHOD 09/21/2024 6:26 PM [facility] Chloride 108 96 - 110 mmol/L LAB CHEMISTRY METHOD 09/21/2024 6:26 PM [facility] CO2 29 21 - 32 mmol/L LAB CHEMISTRY METHOD 09/21/2024 6:26 PM [facility] Anion Gap 3 3 - 11 LAB CHEMISTRY METHOD 09/21/2024 6:26 PM [facility] Glucose 83 70 - 100 mg/dL LAB CHEMISTRY METHOD 09/21/2024 6:26 PM [facility] BUN 8 5 - 25 mg/dL LAB CHEMISTRY METHOD 09/21/2024 6:26 PM [facility] Creatinine 0.88 0.50 - 1.10 mg/dL LAB CHEMISTRY METHOD 09/21/2024 6:26 PM [facility] eGFR 77 >=60 mL/min/1. 73m2 LAB CHEMISTRY METHOD 09/21/2024 6:26 PM [facility] Comment:Calculation based on the??Chronic Kidney Disease Epidemiology Collaboration (CKD-EPI) equation refit??without adjustment for race. BUN/Creatinine Ratio 9.1 LAB CHEMISTRY METHOD 09/21/2024 6:26 PM [facility] Calcium 10.0 8.5 - 10.5 mg/dL LAB CHEMISTRY METHOD 09/21/2024 6:26 PM [facility] AST (SGOT) 31 10 - 42 unit/L LAB CHEMISTRY METHOD 09/21/2024 6:26 PM [facility] ALT (SGPT) 36 10 - 60 unit/L LAB CHEMISTRY METHOD 09/21/2024 6:26 PM [facility] Alkaline Phosphatase 74 42 - 121 unit/L LAB CHEMISTRY METHOD 09/21/2024 6:26 PM [facility] Total Protein 7.7 6.0 - 8.0 g/dL LAB CHEMISTRY METHOD 09/21/2024 6:26 PM [facility] Albumin 4.3 3.2 - 5.0 g/dL LAB CHEMISTRY METHOD 09/21/2024 6:26 PM [facility] Total Bilirubin 0.5 0.0 - 1.4 mg/dL LAB CHEMISTRY METHOD 09/21/2024 6:26 PM [facility] Blood Venous blood specimen / Unknown Venipuncture / Unknown 09/21/2024 4:16 PM EST 09/21/2024 4:17 PM EST us Pola Motta MD LAB BLOOD ORDERABLES Final Res ult [facility] [address] [place] [address], * SUSANA SCREENING DIGITAL (06/18/2024 11:31 AM EDT) Anatomical Region Laterality Modality Mammography 06/18/2024 7:50 AM EDT Narrative 06/18/2024 11:31 AM EDT [facility] Diagnostic Imaging Department [address] [place] [address] Patient: ??DEIDA,OCHOA ?/Age/Sex: 1965 - 58 - F Unit#: ??[id number] ? Location/Status: ??SPDIMAM/REG CLI ? Mnemonic/Ordering Site: [...] and MLO projections. 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 TISSUE DENSITY: a. [...] Mammogram performed at [facility] at [address] [address] Dictating Physician: ??PADMAJA BOYD MD Electronically Signed by: ??PADMAJA BOYD MD Dic Date/Time: ??06/18/24 1130 Sign date/Time: ??06/18/24 1131 Procedure Note Padmaja Boyd MD - 07/07/2024 [facility] Diagnostic Imaging Department [address] [place] [id number] Patient: OCHOA BERMAN /Age/Sex: 1965 - 58 - F Unit#: [id number] Location/Status: [facility] CLI Mnemonic/Ordering Site: [facility] Ordering Physician: ELLY LAUGHLIN DO Susana Screening Digital - 06/18/24 - 817 Report Status:Signed EXAM: [facility] Screening Digital EXAM DATE AND TIME: 06/18/2024 8:19 AM HISTORY: Screening. Maternal aunt had breast carcinoma in her 70's. COMPARISON: 06/16/23, 06/12/22, 06/09/21 TECHNIQUE: Bilateral digital breast tomosynthesis was performed in the CCand MLO projections. Computer aided detection with iCAD JobApp 3D 3.1was employed. TISSUE DENSITY: a. The [...] Mammogram performed at [facility] [place] [address] Dictating Physician: PADMAJA BOYD MD Electronically Signed by: PADMAJA BOYD MD Dic Date/Time: 06/18/24 1130 Sign date/Time: 06/18/24 1131 Elly Laughlin DO IMG BI PROCEDURES Final Result * Cervical Cancer Screening: HPV (01/02/2024) Pathologist [facility] Cervical Cancer Screening: HPV negative, abstracted Historical Provider HEALTH MAINTENANCE Final Result * Hepatitis C Screening (12/14/2020) Pathologist [facility] Hepatitis C Screening abstracted Historical Provider HEALTH MAINTENANCE Final Result * Colonoscopy (11/16/2019) Pathologist [facility] Colonoscopy normal, abstracted Anatomical Region Laterality Modality Other Historical Provider HEALTH MAINTENANCE Final Result from Last 3 Months or Most Recently Relevant [place] [id number] [place] Care Teams Canvas [employer] Laborer Relationship Specialty Start Date End Date Pola Motta MD [address] [place] [phone] PCP - General Internal Medicine 07/28/24
--- OUTSIDE RECORDS SUMMARY | 2024-11-11 08:52 | XMS_ITS | Encounter Summary ---
Author Organization [facility] Address [address] [place] [address] Care Team Providers Care Emt Name Role Phone Pola Motta MD Primary Care Provider [phone] Reason for Visit * Reason Onset Date Comments Referral 10/19/2024 Encounter Details Date Type Department Care Team (Late st Contact Info) Description 10/19/2024 Telephone Internal Medicine - [address] [phone] Pola Motta MD [address] [place] [phone] Referral Social History Tobacco Use Types Packs/Day [...] from 09/21/24. Please call her back at [phone]. documented in this encounter Plan of Treatment Upcoming Encounters Date Type Department Care Team (Late st Contact Info) Description 12/31/2024 3:30 PM EDT Office Visit Gastroenterology - [place] [facility] [address] [phone] Juliana Flores MD [address] [address] 01/05/2025 8:30 AM EDT Appointment [facility] Endoscopy [address] [place] [phone] Juliana Flores MD [address] [address] 01/11/2025 9:45 AM EDT Office Visit Pulmonolgy - [place] [address] [phone] Herman Barbosa MD [address] [phone] documented as of this encounter Visit Diagnoses Not on filedocumented in this encounter Care Teams Emt Relationship Specialty Start Date End Date Pola Motta MD [address] [place] [phone] PCP - General Internal Medicine 07/28/24 documented as of this encounter
== END 2024-11-11 09:17 | disposition home or self-care (01) ==
PROVIDERS: PCP Internal Medicine; Visit Provider Student in an Organized Health Care Education/Training Program
DX: M35.08 Sjogren syndrome with gastrointestinal involvement (principal); J84.9 Interstitial pulmonary disease, unspecified; M35.89 Other specified systemic involvement of connective tissue; Z51.81 Encounter for therapeutic drug level monitoring; Z79.620 Long term (current) use of immunosuppressive biologic; Z79.899 Other long term (current) drug therapy
CPT/HCPCS: 99214; G2211

== ENCOUNTER → 2024-11-11 08:26 | Outpatient (BNVA) | payer MEDICARE, MEDICAID, SELFPAY | PROVIDERS: PCP Internal Medicine; Visit Provider Student in an Organized Health Care Education/Training Program | DX: M35.08 Sjogren syndrome with gastrointestinal involvement (principal); M35.9 Systemic involvement of connective tissue, unspecified; J84.9 Interstitial pulmonary disease, unspecified; Z51.81 Encounter for therapeutic drug level monitoring; Z79.620 Long term (current) use of immunosuppressive biologic; Z79.899 Other long term (current) drug therapy | CPT/HCPCS: 99212 ==

== ENCOUNTER 2025-03-28 09:36 | Outpatient (REF) | payer MEDICARE, OTHER, SELFPAY ==
--- OUTSIDE RECORDS SUMMARY | 2025-03-28 10:08 | XMS_ITS | Clinical Summary ---
Author Organization [facility] Address [address] [place] [address] Phone Care Team Providers Care Wharfinger Chief Name Role Phone Pola Motta MD Primary Care Provider [phone] Allergies No known active allergies Medications fluticasone furoate (Arnuity Ellipta) 100 mcg/actuation blister with device inhaler 08/30/20 21 Active gabapentin (NEURONTIN) 100 mg capsule Take 1 Capsule twice a day and 1 Capsule at night 10/21/19 24 Active hydroxychloroquin e (PLAQUENIL) 200 mg tablet Take 1 tablet by mouth 2 times daily. 05/21/20 21 Active nortriptyline (PAMELOR) 50 mg capsule Take 10 mg by mouth at bedtime. 10/21/19 24 Active triamcinolone (NASACORT) 55 mcg nasal inhaler 55 mcg by Nasal route daily for 30 days. 11/25/19 19 Active cycloSPORINE (Restasis MultiDose) 0.05 % drops 2dropus OU tid 08/07/20 07 Active acetaminophen (TYLENOL) 325 mg tablet Take 650 mg by mouth every 6 hours as needed for Pain. Active amoxicillin (AMOXIL) 500 mg capsule Take 1 capsule (500 mg total) by mouth every 8 (eight) hours. 12/11/19 24 Active melatonin 3 mg tablet Take 5 mg by mouth at bedtime. 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 See instructions provided by the office 2 tablet 12/23/19 25 Active Additional Information Patient not taking.Reported on 03/15/2025 albuterol 2.5 mg /3 mL (0.083 %) nebulizer solutionIndicatio ns:Multiple idiopathic pulmonary cysts,LIP (lymphoid interstitial pneumonitis) (CMS/HCC V24, CMS/HCC V28) Take 3 mL (2.5 mg total) by nebulization every 6 (six) hours if needed for wheezing. 120 mL 3 01/12/20 25 026 Active albuterol HFA (PROAIR HFA ; PROVENTIL HFA ; VENTOLIN HFA) 90 mcg/actuation inhalerIndication s:Encounter for immunization,Othe r specified cough INHALE 2 PUFFS INTO THE LUNGS EVERY 6 HOURS NEEDED FOR WHEEZING OR SHORTNESS OF BREATH FOR UP TO 90 DAYS. THIS IS A RESCUE MEDICATION NOT EXCEED 12 INHALATIONS/24 HRS. 54 each 3 01/29/20 25 Active riTUXimab (Rituxan) 10 mg/mL injection Infuse into a venous catheter. Every 6 months Active cyclobenzaprine (FLEXERIL) 10 mg tabletIndications :Fibromyalgia Take 0.5-1 Tablets by mouth 2 times daily as needed for Muscle spasms. Medication may cause drowsiness, do not drive/operate machinery while taking 30 tablet 03/21/20 25 Active omeprazole (PriLOSEC) [address] capsule Take 1 capsule (40 mg total) by mouth 1 (one) time each day. 90 capsule 1 03/21/20 25 Active meclizine (ANTIVERT) 12.5 mg tablet Take 1 Tablet by mouth 3 times daily as needed (dizziness). 30 tablet 1 03/21/20 25 Active meclizine (ANTIVERT) 12.5 mg tablet Take 1 Tablet by mouth 3 times daily as needed (dizziness). 10/21/19 24 025 Discontinu ed(Reorder ) fluticasone furoate (Arnuity Ellipta) 50 mcg/actuation blister with device inhaler Inhale into the lungs. 025 Discontinu ed(Therapy completed) estradioL (VAGIFEM) 10 mcg tablet vaginal tablet 01/02/20 24 025 Discontinu ed(Therapy completed) cyclobenzaprine (FLEXERIL) 10 mg tablet Take 0.5-1 Tablets by mouth 2 times daily as needed for Muscle spasms. Medication may cause drowsiness, do not drive/operate machinery while taking 10/11/19 025 Discontinu ed(Reorder ) tirzepatide, weight loss, (Zepbound) 2.5 mg/0.5 mL solution Inject 2.5 mg under the skin every 7 (seven) days. 2 mL 08/05/20 24 025 Discontinu ed(Discont inued by another clinician) APPLE CIDER VINEGAR ORAL Take by mouth. 025 Discontinu ed(Therapy completed) magnesium citrate 100 mg gummy chewable tablet Take 2 tablets (200 mg total) by mouth. 025 Discontinu ed(Therapy completed) omeprazole (PriLOSEC) [address] capsule TAKE 1 CAPSULE BY MOUTH EVERY DAY 90 capsule 1 10/18/19 025 Discontinu ed(Reorder ) polyethylene glycol (Golytely) 236-22.74-6.74 -5.86 gram solution Take 4L by mouth once for one dose. May substitue any PEG. Starting at 6PM the night before your procedure drink 1 8oz glasses at your own pace until you complete half of the gallon. Finish 2nd half of the gallon 5 hours before your procedure. 4000 mL 12/23/19 025 Discontinu ed(Therapy completed) Active Problems Problem Noted Date Diagnosed Date Family history of cardiac disorder 03/15/2025 Abnormal electrocardiogram 03/15/2025 Chronic fatigue 03/15/2025 Daytime sleepiness 03/15/2025 Snoring 03/15/2025 Cardiac disorder 03/10/2025 DJD (degenerative joint disease), lumbosacral Gastroesophageal reflux disease without esophagi tis 02/03/2024 COVID 08/06/2023 Esophageal dysmotility 12/27/2021 Sjogren syndrome with gastro intestinal involvement (CMS/HCC V24) 12/27/2021 Fatty liver 02/09/2021 Renal cyst 02/09/2021 [...] hip dysplasia; considering THR 2011 Sicca syndrome ([facility] V24) 09/10/2006 Overview (06/24/2024): Dry eyes and mouth, +RF, +MARCELLO, +Sjogren's antibodies Recurrent parotid swelling.On hydroxychloroquine Eye exam 02/04. 03/08, 08/08, 09/08, 05/10, 01/2021 Resolved Problems Problem Noted Date Diagnosed Date Resolved Date Lumbosacral spondylosis without myelopathy 09/10/2006 06/24/2024 Encounters Date Type Department Care Team Description 03/22/2025 11:45 AM EDT Office Visit Bariatric Surgery - [address] [place] [address] Consuelo Hernandez, PA Class 1 obesity due to excess calories with serious comorbidity and body mass index (BMI) of 34.0 to 34.9 in adult (Primary Dx) 03/21/2025 8:15 AM EDT Office Visit Internal Medicine - [facility] [address] [place] [phone] Pola Motta MD Fibromyalgia (Primary Dx); Gastroesophageal reflux disease, unspecified whether esophagitis present; Chronic vertigo 03/15/2025 10:20 AM EDT Office Visit [facility] - [facility] [address] [place] [phone] Sheng Norwood MD Shortness of breath (Primary Dx); Family history of cardiac disorder; Abnormal electrocardiogram; Chronic fatigue; Daytime sleepiness; Snoring 01/14/2025 Telephone Pulmonolgy [facility] 175 [facility] [address] [place] [address] Harpreet Enrique MA Fitting for DME ([employer]) 01/11/2025 9:45 AM EDT [facility] [address] [place] [address] Herman Barbosa MD Multiple idiopathic pulmonary cysts (Primary Dx); LIP (lymphoid interstitial pneumonitis) (CMS/HCC V24, CMS/HCC V28) 01/05/2025 9:29 AM EDT Anesthesia Event [facility] [address] [place] [phone] Maribel Ramsey MD 01/05/2025 7:35 AM EDT - 01/05/2025 11:59 PM EDT Hospital Encounter [facility] [address] [place] [phone] Juliana Flores MD Steele, Matthew G, CRNA Chang, Daniel J, MD Family hx colonic polyps Discharge Disposition: Home or Self Care 01/03/2025 10:05 AM EDT Lab Draw Station - [address] [facility] [address] [place] [phone] Elevated liver function tests 12/31/2024 3:30 PM EDT Office Visit Gastroenterology [facility] 175 [facility] 175 [facility] [address] [place] [phone] Juliana Flores MD Encounter for screening colonoscopy; Elevated liver function tests from Last 3 Months Immunizations Name Administration [...] History Surgery Date Site/Laterality Comments SECTION PROCEDURE: TX DELIVERY ONLY COLONOSCOPY 04/12/2010 PROCEDURE: HISTORICAL COLONOSCOPY; COMMENT: Normal TUBAL LIGATION 1993 PROCEDURE: HISTORICAL TUBAL LIGATION ESOPHAGOGASTRODUODENOSCOPY 2003 PROCEDURE: TX ESOPHAGOGASTRODUODENOSCOPY TRANSORAL DIAGNOSTIC; COMMENT: cervical esophageal web, dilated to 48 [place] OTHER SURGICAL HISTORY 12/01/07 PROCEDURE: TX EGD DILATION GASTRIC/DUODENAL STRICTURE; COMMENT: cervical esophageal web, dilated to 48 [place] OTHER SURGICAL HISTORY 12/14/14 PROCEDURE: TX EGD INSERT GUIDE WIRE DILATOR PASSAGE ESOPHAGUS; [...] I, colpo 01/23 MERRY I Sicca syndrome (CMS/HCC V24) 09/10/2006 DX: Sicca syndrome (HCC); COMMENT: Dry eyes and mouth, [...] drink = 0.6 oz pur e alcohol) Interpersonal Safety Answer Date Record ed Physical Abuse 01/05/2025 Verbal Abuse 01/05/2025 Comments No Sex and Gender Information Value Date Recorded Sex Assigned at Not on file Legal Sex Female 3:09 PM EST Gender Identity Not on file Sexual Orientation Not on file Obstetrics History Last Filed Vital Signs Vital Sign Reading Time Taken Comments Blood Pressure 148/83 03/22/2025 11:49 AM EDT Pulse 57 03/22/2025 11:49 AM EDT Temperature 35.9 C (96.7 F) 03/22/2025 11:49 AM EDT Respiratory Rate 16 01/11/2025 9:52 AM EDT Oxygen Saturation 98% 03/15/2025 9:56 AM EDT Inhaled Oxygen Concentration - - Weight 84.4 kg (186 lb) 03/22/2025 11:49 AM EDT Height 157.5 cm (5' 2 ) 03/22/2025 11:49 AM EDT Body Mass Index 34.02 03/22/2025 11:49 AM EDT Plan of Treatment Upcoming Encounters Date Type Department Care Team (Late st Contact Info) Description 04/28/2025 9:00 AM EDT Ancillary Procedure [facility] - [facility] [address] [place] [address] 07/14/2025 9:30 AM EDT Office Visit Pulmonolgy - [place] 175 [facility] [address] [place] [phone] Herman Barbosa MD 175 [facility] [address] [place] [address] Health Maintenance Due Date Last Done Comments Hepatitis B Vaccines (1 of 3 - 19+ 3-dose series) 1985 Zoster Vaccines (2 of 3) 02/20/2022 12/26/2021, 09/23 Depression Screening 08/31/2022 HIV Screening 08/31/2022 Medicare Annual Wellness Visit 08/31/2022 Social Influencers of Health Screening 08/31/2022 COVID-19 Vaccine ( season) 2024 07/14/2023, 01/28/2023, 08/31/2022, Additional history exists Influenza Vaccine (#1) 2025 , 07/14/2023, 07/04/2022, Additional history exists Hypertension/CHF/CAD Annual BMP Blood Test 09/21/2025 09/21/2024, 08/04/2024, 02/11/2023 Breast Cancer Screening 06/18/2026 06/18/20 24, 06/16/2023, 06/12/2022, Additional history exists Cervical Cancer Screening: HPV 01/01/2029 01/02/2024 Cholesterol Screening (Lipid Panel) 09/21/2029 09/21/2024, 08/04/2024, 2023 DTaP,Tdap,and Td Vaccines (3 - Td or Tdap) 11/28/2029 11/29/2019, 01/19/2009 Colorectal Cancer Screening: Colonoscopy 01/06/2032 01/05/2025, 11/16/2019 Hepatitis C Screening Completed 12/14/2020 Pneumococcal Vaccine: 50+ Years Completed 02/12/2023, 09/03/2022 Pneumococcal Vaccine: Pediatrics (0 to 5 Years) and At-Risk Patients (6 to 64 Years) Completed 02/12/2023, 09/03/2022 HIB Vaccines Aged Out No longer eligi [...] age to complete this topic Meningococcal B Vaccine Aged Out No l onger eligible based on patient's age to complete this topic RSV Immunization Patients Under 20 months Aged Out No longer eligible based on patient's age to complete this topic Varicella Vaccines Aged Out No longer eligible based on patient's age to complete this topic Medical Devices Implanted Type Area Director Fundraising Device Identifier Shelf Expiration Date Model / Serial / Lot Implants Implants Left: Hip Procedures Procedure Name Priority Date/Time Associated Diagnosis Comments ECG 12-LEAD Routine 03/15/2025 10:12 AM EDT Shortness of breath COLONOSCOPY Routine 01/05/2025 9:51 AM EDT Family hx colonic polyps HEPATIC FUNCTION PANEL Routine 01/03/2025 10:11 AM EDT Elevated liver function tests COMPREHENSIVE METABOLIC PANEL Routine 09/21/2024 4:16 PM EST Screening for diabetes mellitus LIPID PANEL WITH REFLEX TO DIRECT LDL Routine 09/21/2024 4:16 PM EST Screening for hyperlipidemia SUSANA SCREENING DIGITAL Routine 06/18/2024 11:31 AM EDT HM HPV Routine 01/02/2024 HM HEPATITIS C SCREENING Routine 12/14/2020 from Last 3 Months or Most Recently Relevant to Health Maintenance Results * ECG 12 lead (03/15/2025 10:12 AM EDT) Ventricular Rate ECG 57 BPM GEMUSE Atrial Rate 57 BPM GEMUSE P-R Interval 202 ms GEMUSE QRS Duration 96 ms GEMUSE Q-T Interval 418 ms GEMUSE QTc 406 ms GEMUSE P Wave [place] 58 degrees GEMUSE R [place] 50 degrees GEMUSE T [place] 24 degrees GEMUSE ECG Interpretation Sinus bradycardia Low voltage QRS T wave abnormality, consider anterior ischemia Abnormal ECG No previous ECGs available Confirmed by Kasia NORWOOD, SHENG ([id number]) on 03/15/2025 10:42:23 AM GEMUSE 03/15/2025 10:1 2 AM EDT 03/15/2025 10:42 AM EDT Sheng Norwood MD ECG ORDERABLES Final Result GEMUSE * COLONOSCOPY Anesthesia - MAC; [facility] ENDOSCOPY (01/05/2025 9:51 AM EDT) Anatomical Region Laterality Modality Endoscopy 01/05/2025 9:33 AM EDT Impressions 01/05/2025 9:50 AM EDT - Internal hemorrhoids. - The examination was otherwise normal. - No specimens collected. Recommendation: - Discharge patient to home. - Repeat colonoscopy in 10 years for screening purposes. Narrative 01/05/2025 9:50 AM EDT [facility] GI Patient Name: Ochoa Berman Procedure Date: 01/05/2025 9:33 AM Date of : 1965 Age: 59 Gender: Female Note Status: Finalized Attending MD: Juliana Flores MD, Procedure Date No Time: 01/05/2025 Procedure: Colonoscopy Indications: Screening for colorectal malignant neoplasm Providers: Juliana Flores MD Referring MD: Julaina Flores MD Medicines: Monitored Anesthesia Care Complications: No immediate complications. Estimated blood loss: None. Estimated Blood Loss: Estimated blood loss: none. Procedure: Pre-Anesthesia Assessment: - Prior to the procedure, a History and Physical was performed, and patient medications and allergies were reviewed. The patient is competent. The risks and benefits of the procedure and the sedation options and risks were discussed with the patient. All questions were answered and informed consent was obtained. Patient identification and proposed procedure were verified by the physician, the nurse, the ui ux web developer and the fire protection engineering technician in the pre-procedure area in the procedure room. Mental Status Examination: alert and oriented. Airway Examination: normal oropharyngeal airway and neck mobility. Respiratory Examination: clear to auscultation. CV Examination: normal. Prophylactic Antibiotics: The patient does not require prophylactic antibiotics. Prior Anticoagulants: The patient has taken no anticoagulant or antiplatelet agents. ASA Grade Assessment: II - A patient with mild systemic disease. After reviewing the risks and benefits, the patient was deemed in satisfactory condition to undergo the procedure. The anesthesia plan was to use monitored anesthesia care (MAC). Immediately prior to administration of medications, the patient was re-assessed for adequacy to receive sedatives. The heart rate, respiratory rate, oxygen saturations, blood pressure, adequacy of pulmonary ventilation, and response to care were monitored throughout the procedure. The physical status of the patient was re-assessed after the procedure. After I obtained informed consent, the scope was passed under direct vision. Throughout the procedure, the patient's blood pressure, pulse, and oxygen saturations were monitored continuously. The Olympus Colonoscope was introduced through the anus and advanced to the cecum, identified by appendiceal orifice and ileocecal valve. The colonoscopy was performed without difficulty. The patient tolerated the procedure well. The quality of the bowel preparation was good. Findings: The perianal and digital rectal examinations were normal. Internal hemorrhoids were found during retroflexion. The hemorrhoids were Grade I (internal hemorrhoids that do not prolapse). The exam was otherwise without abnormality. Procedure Code(s): --- Professional --- G0121, Colorectal cancer screening; colonoscopy on individual not meeting criteria for high risk Diagnosis Code(s): --- Professional --- Z12.11, Encounter for screening for malignant neoplasm of colon CPT copyright 2020 [employer]. All rights reserved. The codes documented in this report are preliminary and upon market research assistant review may be revised to meet current compliance requirements. Juliana Flores MD 01/05/2025 9:50:26 AM This report has been signed electronically.Juliana Flores MD Number of Addenda: 0 Note Initiated On: 01/05/2025 9:33 AM Scope Withdrawal Time: 0 hours 7 minutes 27 seconds Scope In: 9:38:19 AM Scope Out: 9:49:11 AM Endoscopy Department at [facility] - [address] [place] [phone] Procedure Note Juliana Flores MD - 01/05/2025 [facility] GI Patient Name: Ochoa Berman Procedure Date: 01/05/2025 9:33 AM Date of : 1965 Age: 59 Gender: Female Note Status: Finalized Attending MD: Juliana Flores MD, Procedure Date No Time: 01/05/2025 Procedure: Colonoscopy Indications: Screening for colorectal malignant neoplasm Providers: Juliana Flores MD Referring MD: Juliana Flores MD Medicines: Monitored Anesthesia Care Complications: No immediate complications. Estimated blood loss:None. Estimated Blood Loss: Estimated blood loss: none. Procedure: Pre-Anesthesia Assessment: - Prior to the procedure, a History and Physicalwas performed, and patient medications and allergieswere reviewed. The patient is competent. The risks and benefits of the procedure and the sedation optionsand risks were discussed with the patient. Allquestions were answered and informed consent was obtained. Patient identification and proposed procedure were verified by the physician, the nurse, theanesthetist and the fire protection engineering technician in the pre-procedure area in the procedure room. Mental Status Examination: alertand oriented. Airway Examination: normal oropharyngeal airway and neck mobility. Respiratory Examination: clear to auscultation. CV Examination: normal. Prophylactic Antibiotics: The patient does notrequire prophylactic antibiotics. Prior Anticoagulants: The patient has taken no anticoagulant or antiplatelet agents. ASA Grade Assessment: II - A patient withmild systemic disease. After reviewing the risks and benefits, the patient was deemed in satisfactory condition to undergo the procedure. The anesthesia plan was to use monitored anesthesia care (MAC). Immediately prior to administration of medications, the patient was re-assessed for adequacy to receive sedatives. The heart rate, respiratory rate, oxygen saturations, blood pressure, adequacy of pulmonary ventilation, and response to care were monitored throughout the procedure. The physical status ofthe patient was re-assessed after the procedure. After I obtained informed consent, the scope was passed under direct vision. Throughout theprocedure, the patient's blood pressure, pulse, and oxygen saturations were monitored continuously. TheOlympus Colonoscope was introduced through the anus and advanced to the cecum, identified by appendiceal orifice and ileocecal valve. The colonoscopy was performed without difficulty. The patient tolerated the procedure well. The quality of the bowel preparation was good. Findings: The perianal and digital rectal examinations were normal. Internal hemorrhoids were found duringretroflexion. The hemorrhoids were Grade I (internal hemorrhoids that do not prolapse). The exam was otherwise without abnormality. Procedure Code(s): --- Professional --- G0121, Colorectal cancer screening; colonoscopy on individual not meeting criteria for high risk Diagnosis Code(s): --- Professional --- Z12.11, Encounter for screening for malignantneoplasm of colon CPT copyright 2020 [employer]. All rights reserved. The codes documented in this report are preliminary and upon market research assistant reviewmay be revised to meet current compliance requirements. Juliana Flores MD 01/05/2025 9:50:26 AM This report has been signed electronically.Juliana Flores MD Number of Addenda: 0 Note Initiated On: 01/05/2025 9:33 AM Scope Withdrawal Time: 0 hours 7 minutes 27 seconds Scope In: 9:38:19 AM Scope Out: 9:49:11 AM Endoscopy Department at [facility] - [address] [place] [phone] IMPRESSION: - Internal hemorrhoids. - The examination was otherwise normal. - No specimens collected. Recommendation: - Discharge patient to home. - Repeat colonoscopy in 10 years for screening purposes. us Juliana Flores MD GI~PROCEDURE ORDERABLES Fin al Result * Hepatic function panel (01/03/2025 10:11 AM EDT) Total Protein 7.5 6.0 - 8.0 g/dL LAB CHEMISTRY METHOD 01/03/2025 3:03 PM T [facility] Albumin 3.9 3.2 - 5.0 g/dL LAB CHEMISTRY METHOD 01/03/2025 3:03 PM [facility] Total Bilirubin 0.6 0.0 - 1.4 mg/dL LAB CHEMISTRY METHOD 01/03/2025 3:03 PM [facility] Bilirubin, Direct 0.1 0.0 - 0.3 mg/dL LAB CHEMISTRY METHOD 01/03/2025 3:03 PM [facility] Bilirubin, Indirect 0.5 0.0 - 1.1 mg/dL LAB CHEMISTRY METHOD 01/03/2025 3:03 PM [facility] ALT (SGPT) 49 10 - 60 unit/L LAB CHEMISTRY METHOD 01/03/2025 3:03 PM [facility] AST (SGOT) 38 10 - 42 unit/L LAB CHEMISTRY METHOD 01/03/2025 3:03 PM [facility] Alkaline Phosphatase 82 42 - 121 unit/L LAB CHEMISTRY METHOD 01/03/2025 3:03 PM [facility] Blood Venous blood specimen / Unknown Venipuncture / Unknown 01/03/2025 10:11 AM EDT 01/03/2025 11:13 AM EDT us Juliana Flores MD LAB BLOOD ORDERABLES Final Result [facility] [address] [place] [address], [place] [phone] * (ABNORMAL) Lipid panel with reflex to direct LDL (09/21/2024 4:16 PM EST) Cholesterol 180 0 - 200 mg/dL LAB CHEMISTRY METHOD 09/21/2024 6:26 PM EST [facility] Triglycerides 90 0 - 150 mg/dL LAB CHEMISTRY METHOD 09/21/2024 6:26 PM [facility] HDL 59 >=40 mg/dL LAB CHEMISTRY METHOD 09/21/2024 6:26 PM [facility] LDL Calculated 103(H) 0 - 100 mg/dL LAB CHEMISTRY METHOD 09/21/2024 6:26 PM [facility] VLDL Cholesterol Teto 18 mg/dL LAB CHEMISTRY METHOD 09/21/2024 6:26 PM [facility] Non HDL Chol. (LDL+VLDL) 121 <145 mg/dL LAB CHEMISTRY METHOD 09/21/2024 6:26 PM [facility] Chol/HDL Ratio 3.1 0.0 - 4.4 LAB CHEMISTRY METHOD 09/21/2024 6:26 PM [facility] Blood Venous blood specimen / Unknown Venipuncture / Unknown 09/21/2024 4:16 PM EST 09/21/2024 4:17 PM EST us Pola Motta MD LAB BLOOD ORDERABLES Final Res ult [facility] [address] [place] [address], * Comprehensive metabolic panel (09/21/2024 4:16 PM EST) Sodium 140 133 - 145 mmol/L LAB CHEMISTRY METHOD 09/21/2024 6:26 PM [facility] Potassium 4.1 3.5 - 5.5 mmol/L LAB CHEMISTRY METHOD 09/21/2024 6:26 PM [facility] Chloride 108 96 - 110 mmol/L LAB CHEMISTRY METHOD 09/21/2024 6:26 PM [facility] CO2 29 21 - 32 mmol/L LAB CHEMISTRY METHOD 09/21/2024 6:26 PM [facility] Anion Gap 3 3 - 11 LAB CHEMISTRY METHOD 09/21/2024 6:26 PM [facility] Glucose 83 70 - 100 mg/dL LAB CHEMISTRY METHOD 09/21/2024 6:26 PM [facility] BUN 8 5 - 25 mg/dL LAB CHEMISTRY METHOD 09/21/2024 6:26 PM [facility] Creatinine 0.88 0.50 - 1.10 mg/dL LAB CHEMISTRY METHOD 09/21/2024 6:26 PM [facility] eGFR 77 >=60 mL/min/1. 73m2 LAB CHEMISTRY METHOD 09/21/2024 6:26 PM [facility] Comment:Calculation based on the Chronic Kidney Disease Epidemiology Collaboration (CKD-EPI) equation refit without adjustment for race. BUN/Creatinine Ratio 9.1 LAB CHEMISTRY METHOD 09/21/2024 6:26 PM [facility] Calcium 10.0 8.5 - 10.5 mg/dL LAB CHEMISTRY METHOD 09/21/2024 6:26 PM [facility] AST (SGOT) 31 10 - 42 unit/L LAB CHEMISTRY METHOD 09/21/2024 6:26 PM [facility] ALT (SGPT) 36 10 - 60 unit/L LAB CHEMISTRY METHOD 09/21/2024 6:26 PM [facility] Alkaline Phosphatase 74 42 - 121 unit/L LAB CHEMISTRY METHOD 09/21/2024 6:26 PM [facility] Total Protein 7.7 6.0 - 8.0 g/dL LAB CHEMISTRY METHOD 09/21/2024 6:26 PM [facility] Albumin 4.3 3.2 - 5.0 g/dL LAB CHEMISTRY METHOD 09/21/2024 6:26 PM [facility] Total Bilirubin 0.5 0.0 - 1.4 mg/dL LAB CHEMISTRY METHOD 09/21/2024 6:26 PM [facility] Blood Venous blood specimen / Unknown Venipuncture / Unknown 09/21/2024 4:16 PM EST 09/21/2024 4:17 PM EST us Pola Motta MD LAB BLOOD ORDERABLES Final Res ult [facility] ([facility] HOSPITAL LAB [address] [place] [address], * SUSANA SCREENING DIGITAL (06/18/2024 11:31 AM EDT) Anatomical Region Laterality Modality Mammography 06/18/2024 7:50 AM EDT Narrative 06/18/2024 11:31 AM EDT [facility] Diagnostic Imaging Department [address] [place] [address] Patient: EYADARMANDOCHOA /Age/Sex: 1965 - 58 - F Unit#: [id number] Location/Status: [facility] Mnemonic/Ordering Site: [facility] Ordering Physician: ELLY LAUGHLIN DO Susana Screening Digital - 06/18/24817 Report Status:Signed EXAM: [facility]ana Screening Digital EXAM DATE AND TIME: 06/18/2024 8:19 AM HISTORY: Screening. Maternal aunt had breast carcinoma in her 70's. COMPARISON: 06/16/23, 06/12/22, 06/09/21 TECHNIQUE: Bilateral digital breast tomosynthesis was performed in the CC and MLO projections. Computer aided detection with iCAD [employer] 3D 3.1 was employed. TISSUE DENSITY: a. The breasts are almost entirely fatty. FINDINGS: No suspicious masses, grouped microcalcifications, or areas of architectural distortion are seen. The skin and vascularity are unremarkable. IMPRESSION: Stable mammographic appearance of the breasts. No evidence of malignancy is seen. A negative mammogram in the presence of a clinically suspicious palpable abnormality does not preclude the possibility of malignancy or alter the indications for biopsy. BI-RADS: Category 1: Negative RECOMMENDATION(S): 1: Routine screening mammogram BILATERAL in 1 year. Mamm[facility] performed at [facility] [address] [place] [address] Dictating Physician: PADMAJA BOYD MD Electronically Signed by: PADMAJA BOYD MD Dic Date/Time: 06/18/24 1130 Sign date/Time: 06/18/24 1131 Procedure Note Padmaja Boyd MD - 07/07/2024 [facility] Diagnostic Imaging Department [address] [place] [address] Patient: COHOA BERMAN /Age/Sex: 1965 - 58 - F Unit#: [id number] Location/Status: [facility] Mnemonic/Ordering Site: [facility] Ordering Physician: ELLY LAUGHLIN DO [facility] Screening Digital - 06/18/24 - 817 Report Status:Signed EXAM: [facility] Screening Digital EXAM DATE AND TIME: 06/18/2024 8:19 AM HISTORY: Screening. Maternal aunt had breast carcinoma in her 70's. COMPARISON: 06/16/23, 06/12/22, 06/09/21 TECHNIQUE: Bilateral digital breast tomosynthesis was performed in the CCand MLO projections. Computer aided detection with iCAD [employer] 3D 3.1was employed. TISSUE DENSITY: a. The [...] Mammogram performed at [facility] [place] [address] Dictating Physician: PADMAJA BOYD MD Electronically Signed by: PADMAJA BOYD MD Dic Date/Time: 06/18/24 1130 Sign date/Time: 06/18/24 1131 Elly Laughlin DO IMG BI PROCEDURES Final Result * Cervical Cancer Screening: HPV (01/02/2024) Pathologist [facility] Cervical Cancer Screening: HPV negative, abstracted Historical Provider HEALTH MAINTENANCE Final Result * Hepatitis C Screening (12/14/2020) Pathologist [facility] Hepatitis C Screening abstracted Historical Provider HEALTH MAINTENANCE Final Result from Last 3 Months or Most Recently Relevant to Health Maintenance Insurance MEDICAID - [place] BLUE [place] - [place] MEDICARE ADVANTAGE Care Teams Wharfinger Chief Relationship Specialty Start Date End Date Pola Motta MD [address] [place] [id number] PCP - General Internal Medicine 07/28/24
[2025-03-28 10:16] LABS: MANUAL DIFF FLAG NO
[2025-03-28 10:53] LABS: Hematocrit 35.8 % (37.0-47.0); Hemoglobin 12.0 g/dl (12.0-16.0); Imm Gran Abs Auto 0.01 X10*3/uL (0.00-0.03); Imm Gran Pct Auto 0.3 % (0.0-0.4); Lymphocytes Absolute Auto 0.8 X10*3/uL (1.2-4.9); Mean Corpuscular HGB Conc 33.5 g/dl (31.0-35.0); Mean Corpuscular Hemoglobin 29.6 pg (27.0-33.0); Mean Corpuscular Volume 88.4 fL (80.0-98.0); NRBC Abs Auto 0.000 X10*3/uL (0.0-0.012); NRBC Pct Auto 0.0 /100WBC (0.0-0.2); Platelet Count 289 X10*3/uL (160-400); Red Blood Count 4.05 X10*6/uL (4.20-5.50); White Blood Count 3.4 X10*3/uL (4.8-10.8)
[2025-03-28 13:09] LABS: Anion Gap 11 (12-20)
[2025-03-28 13:15] LABS: Alanine Aminotransferase 28 U/L (0-31); Albumin Level 4.4 g/dL (3.5-5.0); Alkaline Phosphatase 64 U/L (39-117); Aspartate Amino Transferase 30 U/L (5-31); Blood Urea Nitrogen 16 mg/dL (9-16); Calcium 9.2 mg/dL (8.4-10.2); Carbon Dioxide 25 mmol/L (22-29); Chloride 109 mmol/L (96-108); Estimated Glomerular Filt Rate > 60; Potassium 4.1 mmol/L (3.3-5.1); Sodium 141 mmol/L (135-145); Total Protein 7.4 g/dL (6.5-8.0)
[2025-03-29 08:39] LABS: HBS Num1 71.28 mIU/mL (0-7.99); HBc Num1 0.06 S/CO (0.00-0.79); HBsAGNum1 0.38 S/CO (0.00-0.99); Hepatitis A Antibody IgM 0.13 Index (0-0.79); Hepatitis B Surface Antigen Negative (Negative); ~HepC Num1 0.14 S/CO (0.00-0.79); ~Hepatitis A Antibody IgM Nonreactive (Nonreactive); ~Hepatitis B Surface Antibody REACTIVE (Nonreactive); ~Hepatitis C Antibody Nonreactive (Nonreactive)
[2025-03-31 18:59] LABS: Prot Elec - Albumin 4.3 g/dL (3.8-4.8); Prot Elec - Alpha1 0.3 g/dL (0.2-0.3); Prot Elec - Alpha2 0.7 g/dL (0.5-0.9); Prot Elec - Beta 1 0.4 g/dL (0.4-0.6); Prot Elec - Beta 2 0.4 g/dL (0.2-0.5); Prot Elec - Gamma 1.2 g/dL (0.8-1.7); Prot Elec - Total Protein 7.3 g/dL (6.1-8.1)
== END 2025-03-28 09:37 | disposition home or self-care (01) ==
LOC: HO.LAB 09:36
PROVIDERS: PCP Nurse Practitioner Family; Visit Provider Student in an Organized Health Care Education/Training Program
DX: M35.05 Sjogren syndrome with inflammatory arthritis (principal); M35.08 Sjogren syndrome with gastrointestinal involvement; J84.9 Interstitial pulmonary disease, unspecified; M35.9 Systemic involvement of connective tissue, unspecified
CPT/HCPCS: 36415; 80053; 82784; 84165; 85025; 85652; 86140; 86160; 86334; 86431; 86481; 86704; 86706; 86709; 86803; 87340

== ENCOUNTER 2025-04-07 11:39 | Outpatient (AMB) | payer MEDICARE, MEDICAID, SELFPAY ==
--- NOTE | 2025-04-07 11:43 | MHC.OFFVIS ---
Vital Signs 04/07/25 11:48 Height 5 ft 2 in Weight 182 lb 1.982 oz BMI 33.3 BP 132/80 Blood Pressure Location Lt brachial Position Sitting Pulse 64 Pulse Source Pulse Oximeter Pulse Oximetry (%) 98 Oxygen Delivery Method Room Air Intake Visit Reasons: Sjogren's Intake Note: Patient presents for Sjogren's follow up. Allergies No Known Allergies Allergy (Verified 04/07/25 11:47) Medication List - Last Reconciled 04/07/25 by Manisha Epstein MD acetaminophen (Tylenol) 650 mg PO Q6H PRN albuterol sulfate 90 mcg/actuation inhalation cyclosporine 0.05% (Restasis) 2 drps ophthalmic (eye) TID diclofenac sodium 1% (Voltaren Arthritis Pain) 4 grams topical QID fluticasone furoate 50 mcg/actuation inhalation DAILY PRN fluticasone furoate 100 mcg/actuation (Arnuity Ellipta) 1 inh inhalation DAILY gabapentin 100 mg PO TID hydroxychloroquine 200 mg PO BID meclizine 12.5 mg PO TID PRN nortriptyline 10 mg PO BEDTIME omeprazole 40 mg PO DAILY rituximab (Rituxan) IV triamcinolone acetonide (Nasacort) 1 spray intranasal DAILY HPI Comments Details: Patient is a 59-year-old female with Sjogren's syndrome complicated by gastrointestinal involvement (esophageal dysmotility) and inflammatory arthritis, 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 This is not painful but she feels that its present - Also feels increasing fatigue. No significant changes to her sleep but just noticing that at the end of the day she is more fatigued Rheumatologic History: Sjogrens syndrome c/b ILD, inflammatory arthritis and GI involvement Dry eyes and mouth, +RF, +MARCELLO, +++Ro52 +++Ro60 +++La Recurrent parotid swelling. cystic lung changes consistent with LIP - diagnosed with lung disease when evaluated for cough and abdominal rash with PFTs 2005. First diagnosed with cystic lung disease in 2018. On hydroxychloroquine - Eye exam 02/04. 03/08, 08/08, 09/08, 05/10, 01/2021, 02/2022,02/2023 RTX 1 g X2 doses 02/2023 & 09/2023 & 04/2024 Current Rheumatology Medication(s): Rituximab 1 g x 2 doses every 6 months Plaquenil 200 mg b.i.d. Gabapentin 100 mg t.i.d. [facility] Medical History (Updated 11/11/24 @ 15:23 by Manisha Epstein MD) Encounter for monitoring of hydroxychloroquine therapy Encounter for monitoring rituximab therapy Osteoarthritis, hand Cervical spondylosis Lumbar spondylosis Esophageal dysmotility Sjogren's syndrome with gastrointestinal involvement Yawning Hypersomnia Snoring delivery delivered Long-term use of hydroxychloroquine Osteoarthritis cervical spine Fibromyalgia Osteoarthritis of lumbar spine Tendinitis of left rotator cuff Surgical History History of hip surgery H/O elbow surgery H/O toe surgery Family History Mother HTN (hypertension) Osteoarthritis Parkinson disease Diabetes Hypercholesteremia Age related osteoporosis Diverticulitis Father No problems noted. Social History Household Members: Spouse Housing: House Are you a primary direct care staffer to a significant other at home: No Do you presently have visiting nurse or other home services: No 75 years or older and lives alone: No Alcohol intake: never Patient Tobacco Use Status: Never used Tobacco e-Cigarette/Vaping Use: Never Used service: No Current occupational status: disabled Review of Systems Const Details: Review of Systems Constitutional: Denies fever, chills, weight loss ENT: Denies vision changes, eye pain, dental caries GI: Denies nausea, vomiting, diarrhea, abdominal pain, change in BM Pulm: Denies SOB, LU, hemoptysis, wheezing Cards: Denies chest pain, palpitations Skin: Denies Raynaud's, rash, nail changes, photosensitivity, NURSING HOME SOCIAL WORKER: Denies headaches, weakness, paresthesias, recurrent falls MSK: as per HPI All other systems reviewed and are unremarkable except noted above Physical Exam Vital Signs: Last Vital Signs Pulse 64 04/07/25 11:48 BP 132/80 04/07/25 11:48 Pulse Ox 98 04/07/25 11:48 Oxygen Delivery Method Room Air 04/07/25 11:48 BMI result Body Mass Index 33.3 Vital signs reviewed Physical Examination CONSTITUITIONAL Patient alert and cooperative. Well appearing and in no apparent painful distress HEENT Conjunctiva and sclera clear. ?Pupils equal round and reactive to light. ?No lymphadenopathy. ? CHEST/RESPIRATORY SYSTEM Normal respiratory effort and able to speak in complete sentences. ?Clear to auscultation bilaterally. ?No crackles, rales, rhonchi, wheezes heard. CARDIAC SYSTEM Regular rate and rhythm. ?S1 and S2 heard no murmurs. 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 No deformities noted. ?No synovitis noted to the MCPs, PIPs or DIPs. ?No tenderness to palpation of these joints. Wrists: ?Full range of motion at the wrists without pain. ?No tenderness to palpation or synovitis noted to the wrists. Elbows: Full range of motion without pain. No tenderness, weakness, swelling, increased warmth or erythema. Shoulders: Full range of motion without pain. No tenderness, weakness, swelling, increased warmth or erythema. Knees: ?Full range of motion. ?No tenderness, swelling, increased warmth or erythema.?No effusion or crepitations Ankles: Full range of motion. ?No tenderness, swelling, increased warmth or erythema.? Feet: ?Negative squeeze test. ?No tenderness to palpation or swelling of the MTPs. Tender points:?No tenderness to palpation of the bilateral trapezius, supraspinatus, greater trochanters, anterior costochondral junctions, bilateral gluteal areas, bilateral suboccipital muscle insertions SKIN Skin intact without rashes. Results Reviewed Results Reviewed: Laboratory Tests 11/03/24 03/28/25 09:37 10:15 WBC 3.4 L RBC 4.05 L Hgb 12.0 Hct 35.8 L Plt Count 289 ESR 23 H 30 H Sodium 141 Potassium 4.1 Chloride 109 H Carbon Dioxide 25 BUN 16 Creatinine 0.83 AST 30 ALT 28 C-Reactive Protein 0.46 Laboratory Tests 03/28/25 10:15 IgG Total 1259 IgA Total 230 IgM 51 ELANA Interpretation Nl pattern Rheumatoid Factor 14.1 Complement C3 159 Complement C4 20 US Abdomen with elastography 09/2024 FINDINGS: Liver: The liver is minimally enlarged, and demonstrates increased echotexture, consistent with steatosis. No focal mass or intrahepatic biliary ductal dilatation is identified. There is normal hepatopedal flow in the portal vein. Ultrasound elastography of the liver was performed with 10 separate measurements of the liver parenchyma with the patient in the supine position. Measurements were obtained approximately 2 cm below Alberto's capsule and perpendicular to the capsule. Images are of satisfactory quality. The median shear wave velocity is 1.15 m/s. The interquartile range/median (IQR/median) is 0.09. Gallbladder and biliary tree: The gallbladder is unremarkable, without evidence of calculi, wall thickening, or pericholecystic fluid. There is no sonographic Hernandez sign. The common bile duct is normal in caliber measuring 3 mm. Kidneys: The right kidney measures 10.4 cm in length. The left kidney measures 10.9 cm in length. The kidneys are unremarkable, without evidence of masses, hydronephrosis, or calculi. Pancreas: The pancreatic head, neck, and body are unremarkable. The pancreatic tail is obscured by bowel gas. Spleen: The spleen is normal in size and contour, measuring 9.5 cm in length. Abdominal aorta and inferior vena cava: The visualized portions of the abdominal aorta and inferior vena cava are normal in caliber. There is no free fluid in the abdomen. IMPRESSION: Mild hepatomegaly and steatosis. The median shear wave velocity is 1.15 m/s, corresponding to a median liver stiffness of 3.92 kPa. The IQR/median value is 0.09. This is indicative of a quality data set. Findings are indicative of a normal elastography value with a low likelihood of severe fibrosis or cirrhosis. Assessment & Plan Assessment & Plan (1) Sjogren's syndrome with gastrointestinal involvement: Code(s): M35.08 - Sjogren syndrome with gastrointestinal involvement Category: Medical Plan: #Sjogren's syndrome Patient with Sjogren's syndrome currently overall in remission. Complaining of worsening fatigue and non specific thoracic pain. This could be evidence of a flare of disease but her blood work has stable inflammatory markers, normal c3/c4, normal RF and normal SPEP. No adenopathy or weight loss. Advised her to follow up with her java web services developer motor or concerns. There was no evidence of active systemic Sjogren's. But given that we decreased the frequency of her rituximab there may be some small Sjogren's activity that his going on. We will we should increase it back to every 6 months. 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 11/3022 CT at the [facility] showing increasing size of the cysts Code(s): J84.9 - Interstitial pulmonary disease, unspecified; M35.9 - Systemic involvement of connective tissue, unspecified Category: Medical Plan: #LIP/CLARKE / Sjogren's CT done 05/2024 showing stable lung cysts. Plan - Rituxumab 1000mg day 0 and day 15 every 6 months - Appreciate pulm input - Repeat CT as per pulm (3) Encounter for monitoring rituximab therapy: Code(s): Z51.81 - Encounter for therapeutic drug level monitoring; Z79.620 - termite exterminator helper (current) use of immunosuppressive biologic Category: Medical Plan: #Long-term Use of Rituxumab Discussed with this patient the risks and benefits of rituximab use to the management of the rheumatic condition Benefits include improved disease control and maintenance of remission Risks include hypogammaglobulinemia and increased risk of opportunistic infections, reactivation of hepatitis-B, infusion reactions Monitoring: ?Immunoglobulins, hepatitis-B serologies, CBC. CD 19 as needed (4) Encounter for monitoring of hydroxychloroquine therapy: Code(s): Z51.81 - Encounter for therapeutic drug level monitoring; Z79.899 - Other intermission coordinator (current) drug therapy Category: Medical Plan: #Long-term Use of Hydroxychloroquine Discussed with patient the risks and benefits of hydroxychloroquine in managing the rheumatic condition Benefits include: - Reduced pain, reduce mortality, maintenance of remission and reduction of flares Risks include: - GI upset, skin hyperpigmentation, retinal toxicity (especially after more than 5 years of use), myopathy Advised yearly ophthalmology visits Plan I spent 35 minutes reviewing the record and labs, taking a history, examining the patient, discussing the treatment plan, ordering diagnostic work up and documenting in the medical record Coding Level of Care Code Est Pt Level 4 (63538) Diagnoses Sjogren's syndrome with gastrointestinal involvement M35.08 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
[2025-04-07 11:48] VITALS: BP 132/80; PULSE 64; O2SAT 98; BMI 33.3
--- OUTSIDE RECORDS SUMMARY | 2025-04-07 12:30 | XMS_ITS | Clinical Summary ---
Author Organization 175 [facility] Address [address] [place] [address] Phone Care Team Providers Care A R Collections Rep Name Role Phone Pola Motta MD Primary Care Provider [phone] Allergies No known active allergies Medications fluticasone furoate (Arnuity Ellipta) 100 mcg/actuation blister with device inhaler Active gabapentin (NEURONTIN) 100 mg capsule Take 1 Capsule twice a day and 1 Capsule at night Active hydroxychloroquin e (PLAQUENIL) 200 mg tablet Take 1 tablet by mouth 2 times daily. 021 Active nortriptyline (PAMELOR) 50 mg capsule Take 10 mg by mouth at bedtime. Active triamcinolone (NASACORT) 55 mcg nasal inhaler 55 mcg by Nasal route daily for 30 days. 019 Active cycloSPORINE (Restasis MultiDose) 0.05 % drops 2dropus OU tid 007 Active acetaminophen (TYLENOL) 325 mg tablet Take 650 mg by mouth every 6 hours as needed for Pain. Active amoxicillin (AMOXIL) 500 mg capsule Take 1 capsule (500 mg total) by mouth every 8 (eight) hours. 024 Active melatonin 3 mg tablet Take 5 mg by mouth at bedtime. Active bisacodyL (DULCOLAX) 5 mg EC tablet Take 2 tablets by mouth right before beginning bowel prep. See instructions provided by the office 2 tablet 025 Active Additional Information Patient not taking.Reported on 03/15/2025 albuterol 2.5 mg /3 mL (0.083 %) nebulizer solutionIndicatio ns:Multiple idiopathic pulmonary cysts,LIP (lymphoid interstitial pneumonitis) (CMS/HCC V24, CMS/HCC V28) Take 3 mL (2.5 mg total) by nebulization every 6 (six) hours if needed for wheezing. 120 mL 3 025 2025 Active albuterol HFA (PROAIR HFA ; PROVENTIL HFA ; VENTOLIN HFA) 90 mcg/actuation inhalerIndication s:Encounter for immunization,Othe r specified cough INHALE 2 PUFFS INTO THE LUNGS EVERY 6 HOURS NEEDED FOR WHEEZING OR SHORTNESS OF BREATH FOR UP TO 90 DAYS. THIS IS A RESCUE MEDICATION NOT EXCEED 12 INHALATIONS/24 HRS. 54 each 3 Active riTUXimab (Rituxan) 10 mg/mL injection Infuse into a venous catheter. Every 6 months Active cyclobenzaprine (FLEXERIL) 10 mg tabletIndications :Fibromyalgia Take 0.5-1 Tablets by mouth 2 times daily as needed for Muscle spasms. Medication may cause drowsiness, do not drive/operate machinery while taking 30 tablet 025 Active omeprazole (PriLOSEC) [address] capsule Take 1 capsule (40 mg total) by mouth 1 (one) time each day. 90 capsule 1 025 Active meclizine (ANTIVERT) 12.5 mg tablet Take 1 Tablet by mouth 3 times daily as needed (dizziness). 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 024 2024 Discontinued(R eorder) fluticasone furoate (Arnuity Ellipta) 50 mcg/actuation blister with device inhaler Inhale into the lungs. 2024 Discontinued(T herapy completed) estradioL (VAGIFEM) 10 mcg tablet vaginal tablet 024 2024 Discontinued(T herapy completed) cyclobenzaprine (FLEXERIL) 10 mg tablet Take 0.5-1 Tablets by mouth 2 times daily as needed for Muscle spasms. Medication may cause drowsiness, do not drive/operate machinery while taking 022 2024 Discontinued(R eorder) tirzepatide, weight loss, (Zepbound) 2.5 mg/0.5 mL solution Inject 2.5 mg under the skin every 7 (seven) days. 2 mL 024 2024 Discontinued(D iscontinued by another clinician) APPLE CIDER VINEGAR ORAL Take by mouth. 2024 Discontinued(T herapy completed) magnesium citrate 100 mg gummy chewable tablet Take 2 tablets (200 mg total) by mouth. 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 May substitue any PEG. Starting at 6PM the night before your procedure drink 1 8oz glasses at your own pace until you complete half of the gallon. Finish 2nd half of the gallon 5 hours before your procedure. 4000 mL 025 2024 Discontinued(T herapy completed) Active Problems Problem Noted Date Diagnosed [...] hip dysplasia; considering THR 2011 Sicca syndrome (CMS/HCC V24) 09/10/2006 Overview (06/24/2024): Dry eyes and mouth, +RF, +MARCELLO, +Sjogren's antibodies Recurrent parotid swelling.On hydroxychloroquine Eye exam 02/04. 03/08, 08/08, 09/08, 05/10, 01/2021 Resolved Problems Problem Noted Date Diagnosed Date Resolved Date Lumbosacral spondylosis without myelopathy 09/10/2006 06/24/2024 Encounters Date Type Department Care Team Description 03/22/2025 11:45 AM EDT Office Visit Bariatric Surgery - [address] [address] Consuelo Hernandez PA Class 1 obesity due to excess calories with serious comorbidity and body mass index (BMI) of 34.0 to 34.9 in adult (Primary Dx) 03/21/2025 8:15 AM EDT Office Visit Internal Medicine - [facility] [address] [place] [address] Pola Motta MD Fibromyalgia (Primary Dx); Gastroesophageal reflux disease, unspecified whether esophagitis present; Chronic vertigo 03/15/2025 10:20 AM EDT Office Visit [facility] - [address] [place] [phone] Sheng Norwood MD Shortness of breath (Primary Dx); Family history of cardiac disorder; Abnormal electrocardiogram; Chronic fatigue; Daytime sleepiness; Snoring 01/14/2025 Telephone Pulmongy [facility] [address] [facility] [address] [place] [address] Harpreet Enrique MA Fitting for DME ([employer]) 01/11/2025 9:45 AM EDT [facility] [address] [facility] [address] [place] [address] Herman Barbosa MD Multiple idiopathic pulmonary cysts (Primary Dx); LIP (lymphoid interstitial pneumonitis) ([facility] V24, [facility] V28) from Last 3 Months Immunizations Name Administration [...] History Surgery Date Site/Laterality Comments SECTION PROCEDURE: PA DELIVERY ONLY COLONOSCOPY 04/12/2010 PROCEDURE: HISTORICAL COLONOSCOPY; COMMENT: Normal TUBAL LIGATION 1993 PROCEDURE: HISTORICAL TUBAL LIGATION ESOPHAGOGASTRODUODENOSCOPY 2003 PROCEDURE: PA ESOPHAGOGASTRODUODENOSCOPY TRANSORAL DIAGNOSTIC; COMMENT: cervical esophageal web, dilated to 48 Moroc[place] OTHER SURGICAL HISTORY 12/01/07 PROCEDURE: PA EGD DILATION GASTRIC/DUODENAL STRICTURE; COMMENT: cervical esophageal web, dilated to 48 [place] OTHER SURGICAL HISTORY 12/14/14 PROCEDURE: PA EGD INSERT GUIDE WIRE DILATOR PASSAGE ESOPHAGUS; [...] Description 04/28/2025 9:00 AM EDT Ancillary Procedure [facility] - [facility] [address] [facility] [address] [place] [address] 07/14/2025 9:30 AM EDT Office Visit Pulmonolgy - [place] [address] [facility] [address] [place] [phone] Herman Barbosa MD 175 [facility] [address] [place] [address] Health Maintenance Due Date Last Done Comments Hepatitis B Vaccines (1 of 3 - 19+ 3-dose series) 1985 Zoster Vaccines (2 of 3) 02/20/2022 12/26/2021, 09/23 HIV Screening 08/31/2022 Medicare Annual Wellness Visit 08/31/2022 Social Influencers of Health Screening 08/31/2022 COVID-19 Vaccine ( season) 2024 07/14/2023, 01/28/2023, 08/31/2022, Additional history exists Depression Screening 09/22/2024 Influenza Vaccine (#1) 2025 , 07/14/2023, 07/04/2022, [...] Pneumococcal Vaccine: 50+ Years Completed 02/12/2023, 09/03/2022 HIB Vaccines Aged Out [...] this topic Medical Devices Implanted Type Area Slat Basket Top Maker Device Identifier Shelf Expiration Date Model / Serial / Lot Implants Implants Left: Hip Procedures Procedure Name Priority Date/Time Associated Diagnosis Comments ECG 12-LEAD Routine 03/15/2025 10:12 AM EDT Shortness of breath COLONOSCOPY Routine 01/05/2025 9:51 AM EDT Family hx colonic polyps COMPREHENSIVE METABOLIC PANEL Routine 09/21/2024 4:16 PM EST Screening for diabetes mellitus LIPID PANEL WITH REFLEX TO DIRECT LDL Routine 09/21/2024 4:16 PM EST Screening for hyperlipidemia AARON SCREENING DIGITAL Routine 06/18/2024 11:31 AM EDT [...] GEMUSE QTc 406 ms GEMUSE P Wave [place] 58 degrees GEMUSE R [place] 50 degrees GEMUSE T [place] 24 degrees GEMUSE ECG Interpretation Sinus bradycardia Low voltage QRS T wave abnormality, consider anterior ischemia Abnormal ECG No previous ECGs available Confirmed by Kasia NORWOOD, SHENG ([id number]) on 03/15/2025 10:42:23 AM GEMUSE 03/15/2025 10:1 2 AM EDT 03/15/2025 10:42 AM EDT us Sheng Norwood MD ECG ORDERABLES Final Result [...] screening purposes. Narrative 01/05/2025 9:[address] [facility] Patient Name: Ochoa Berman Procedure Date: [...] verified by the physician, the nurse, the fisher trot line and the ekg/ecg technician in the pre-procedure area in the [...] malignant neoplasm of colon CPT copyright 2020 [employer]. All rights reserved. The codes documented in this report are preliminary and upon sand temperer review may be revised to meet current compliance requirements. Juliana Flores MD 01/05/2025 9:50:26 AM This report has been signed electronically.Juliana Flores MD Number of Addenda: 0 Note Initiated On: 01/05/2025 9:33 AM Scope Withdrawal Time: 0 hours 7 minutes 27 seconds Scope In: 9:38:19 AM Scope Out: 9:49:11 AM Endoscopy Department at [facility] - [address] [place] [phone] Procedure Note Juliana Flores MD - 01/05/2025 [facility] Patient Name: Ochoa Berman Procedure Date: [...] the physician, the nurse, theanesthetist and the ekg/ecg technician in the pre-procedure area in the [...] for malignantneoplasm of colon CPT copyright 2020 [employer]. All rights reserved. The codes documented in this report are preliminary and upon sand temperer reviewmay be revised to meet current compliance requirements. Juliana Flores MD 01/05/2025 9:50:26 AM This report has been signed electronically.Juliana Flores MD Number of Addenda: 0 Note Initiated On: 01/05/2025 9:33 AM Scope Withdrawal Time: 0 hours 7 minutes 27 seconds Scope In: 9:38:19 AM Scope Out: 9:49:11 AM Endoscopy Department at [address] [phone] IMPRESSION: - Internal hemorrhoids. - The examination was otherwise normal. - No specimens collected. Recommendation: - Discharge patient to home. - Repeat colonoscopy in 10 years for screening purposes. us Juliana Flores MD GI~PROCEDURE ORDERABLES Fin al Result * (ABNORMAL) Lipid panel with reflex to direct LDL (09/21/2024 4:16 PM EST) Cholesterol 180 0 - 200 mg/dL LAB CHEMISTRY METHOD 09/21/2024 6:26 PM [facility] Triglycerides 90 0 - 150 mg/dL LAB CHEMISTRY METHOD 09/21/2024 6:26 PM [facility] HDL 59 >=40 mg/dL LAB CHEMISTRY METHOD 09/21/2024 6:26 PM [facility] LDL Calculated 103(H) 0 - 100 mg/dL LAB CHEMISTRY METHOD 09/21/2024 6:26 PM [facility] VLDL Cholesterol Teto 18 mg/dL LAB CHEMISTRY METHOD 09/21/2024 6:26 PM [facility] Non HDL Chol. (LDL+VLDL) 121 <145 mg/dL LAB CHEMISTRY METHOD 09/21/2024 6:26 PM [facility] Chol/HDL Ratio 3.1 0.0 - 4.4 LAB CHEMISTRY METHOD 09/21/2024 6:26 PM [facility] Blood Venous blood specimen / Unknown Venipuncture / Unknown 09/21/2024 4:16 PM EST 09/21/2024 4:17 PM EST us Pola Motta MD LAB BLOOD ORDERABLES Final Res ult [facility] [address] [place] [address], [place] [phone] * Comprehensive metabolic panel (09/21/2024 4:16 PM EST) Sodium 140 133 - 145 mmol/L LAB CHEMISTRY METHOD 09/21/2024 6:26 PM [facility] Potassium 4.1 3.5 - 5.5 mmol/L LAB CHEMISTRY METHOD 09/21/2024 6:26 PM [facility] Chloride 108 96 - 110 mmol/L LAB CHEMISTRY METHOD 09/21/2024 6:26 PM [facility] CO2 29 21 - 32 mmol/L LAB CHEMISTRY METHOD 09/21/2024 6:26 PM [facility] Anion Gap 3 3 - 11 LAB CHEMISTRY METHOD 09/21/2024 6:26 PM [facility] Glucose 83 70 - 100 mg/dL LAB CHEMISTRY METHOD 09/21/2024 6:26 PM [facility] BUN 8 5 - 25 mg/dL LAB CHEMISTRY METHOD 09/21/2024 6:26 PM [facility] Creatinine 0.88 0.50 - 1.10 mg/dL LAB CHEMISTRY METHOD 09/21/2024 6:26 PM [facility] eGFR 77 >=60 mL/min/1. 73m2 LAB CHEMISTRY METHOD 09/21/2024 6:26 PM [facility] Comment:Calculation based on the Chronic Kidney Disease Epidemiology Collaboration (CKD-EPI) equation refit without adjustment for race. BUN/Creatinine Ratio 9.1 LAB CHEMISTRY METHOD 09/21/2024 6:26 PM [facility] Calcium 10.0 8.5 - 10.5 mg/dL LAB CHEMISTRY METHOD 09/21/2024 6:26 PM [facility] AST (SGOT) 31 10 - 42 unit/L LAB CHEMISTRY METHOD 09/21/2024 6:26 PM [facility] ALT (SGPT) 36 10 - 60 unit/L LAB CHEMISTRY METHOD 09/21/2024 6:26 PM [facility] Alkaline Phosphatase 74 42 - 121 unit/L LAB CHEMISTRY METHOD 09/21/2024 6:26 PM [facility] Total Protein 7.7 6.0 - 8.0 g/dL LAB CHEMISTRY METHOD 09/21/2024 6:26 PM [facility] Albumin 4.3 3.2 - 5.0 g/dL LAB CHEMISTRY METHOD 09/21/2024 6:26 PM [facility] Total Bilirubin 0.5 0.0 - 1.4 mg/dL LAB CHEMISTRY METHOD 09/21/2024 6:26 PM [facility] Blood Venous blood specimen / Unknown Venipuncture / Unknown 09/21/2024 4:16 PM EST 09/21/2024 4:17 PM EST us Pola Motta MD LAB BLOOD ORDERABLES Final Res ult [facility] [address] [place] [address], * AARON SCREENING DIGITAL (06/18/2024 11:31 AM EDT) Anatomical Region Laterality Modality Mammography 06/18/2024 7:50 AM EDT Narrative 06/18/2024 11:31 AM EDT [facility] Diagnostic Imaging Department [address] [place] [address] Patient: OCHOA BERMAN /Age/Sex: 1965 - 58 - F Unit#: [id number] Location/Status: SPDIMAM/REG CLI Mnemonic/Ordering Site: [facility] Ordering Physician: ELLY LAUGHLIN DO [facility] Screening Digital - 06/18/24 - 817 Report Status:Signed EXAM: [facility] Screening Digital EXAM DATE AND TIME: 06/18/2024 8:19 AM HISTORY: Screening. Maternal aunt had breast carcinoma in her 70's. COMPARISON: 06/16/23, 06/12/22, 06/09/21 TECHNIQUE: Bilateral digital breast tomosynthesis was performed in the CC and MLO projections. Computer aided detection with viavoo 3D 3.1 was employed. TISSUE DENSITY: a. [...] Mammogram performed at [facility] [place] [address] Dictating Physician: PADMAJA BOYD MD Electronically Signed by: PADMAJA BOYD MD Dic Date/Time: 06/18/24 1130 Sign date/Time: 06/18/24 1131 Procedure Note Padmaja Boyd MD - 07/07/2024 [facility] Diagnostic Imaging Department [address] [place] [id number] Patient: OCHOA BERMAN /Age/Sex: 1965 - 58 - F Unit#: [id number] Location/Status: SPDIMAM/REG CLI Mnemonic/Ordering Site: [facility] Ordering Physician: ELLY LAUGHLIN DO [facility] Screening Digital - 06/18/[address] Report Status:Signed EXAM: [facility] Screening Digital EXAM DATE AND TIME: 06/18/2024 8:19 AM HISTORY: Screening. Maternal aunt had breast carcinoma in her 70's. COMPARISON: 06/16/23, 06/12/22, 06/09/21 TECHNIQUE: Bilateral digital breast tomosynthesis was performed in the CCand MLO projections. Computer aided detection with viavoo 3D 3.1was employed. TISSUE DENSITY: a. The [...] Mammogram performed at [facility] at [address] [address] Dictating Physician: PADMAJA BOYD MD Electronically Signed by: PADMAJA BOYD MD Dic Date/Time: 06/18/24 1130 Sign date/Time: 06/18/24 1131 Elly Laughlin DO IMG BI PROCEDURES Final Result * Cervical Cancer Screening: HPV (01/02/2024) Cervical Cancer Screening: HPV negative, abstracted Historical Provider HEALTH MAINTENANCE Final Result * Hepatitis C Screening (12/14/2020) Hepatitis C Screening abstracted Historical Provider HEALTH MAINTENANCE Final Result from Last 3 Months or Most Recently Relevant to Health Maintenance [place] Care Teams A R Collections Rep Relationship Specialty Start Date End Date Pola Motta MD [address] [place] [phone] PCP - General Internal Medicine 07/28/24
== END 2025-04-07 12:25 | disposition home or self-care (01) ==
LOC: HO.RHE 11:39
PROVIDERS: PCP Internal Medicine; Visit Provider Student in an Organized Health Care Education/Training Program
DX: J84.9 Interstitial pulmonary disease, unspecified (principal); M35.08 Sjogren syndrome with gastrointestinal involvement; M35.89 Other specified systemic involvement of connective tissue; Z51.81 Encounter for therapeutic drug level monitoring; Z79.620 Long term (current) use of immunosuppressive biologic; Z79.899 Other long term (current) drug therapy
CPT/HCPCS: 99214

== ENCOUNTER → 2025-04-07 11:39 | Outpatient (BNVA) | payer MEDICARE, OTHER, SELFPAY | PROVIDERS: PCP Internal Medicine; Visit Provider Student in an Organized Health Care Education/Training Program | DX: M35.08 Sjogren syndrome with gastrointestinal involvement (principal); J84.9 Interstitial pulmonary disease, unspecified; M35.9 Systemic involvement of connective tissue, unspecified; Z51.81 Encounter for therapeutic drug level monitoring; Z79.620 Long term (current) use of immunosuppressive biologic; Z79.899 Other long term (current) drug therapy | CPT/HCPCS: 99212 ==